=== PATIENT | female | born 1945 | race Caucasian/White ===

== ENCOUNTER 2024-10-15 19:53 | Inpatient (IN) | payer MEDICARE, OTHER, SELFPAY ==
[2024-10-15 19:53] VITALS: BP 184/82; PULSE 100; RESP 27; O2SAT 96
[2024-10-15 19:55] VITALS: BP 197/81; PULSE 108; RESP 18; TEMP 36.6; O2SAT 100; BMI 34.2
--- NOTE | 2024-10-15 20:16 | CT_ITS ---
STUDY: CT BRAIN WITHOUT CONTRAST REASON FOR EXAM: Female, 79 years old. Neuro deficit, stroke suspected RADIATION DOSAGE (If Supplied By Facility): CTDIvol = ( ) mGy, DLP = ( 880.47 ) mGycm TECHNIQUE: Transaxial CT imaging of the brain was performed without administration of intravenous contrast material. Individualized dose optimization techniques were used for this CT. The protocol utilizes one or more of the following dose reduction techniques: automated exposure control, adjustment of mA and/or kV according to patient size,and/or use of iterative reconstruction technique. COMPARISON: No relevant priors. FINDINGS: Normal soft tissue structures. Normal calvarium. Intracranial atherosclerosis. Normal size ventricles and extra-axial spaces for the patient''s age. Normal white matter tracts of the cerebral hemispheres. Normal basal ganglia and thalami. Normal brainstem. Normal cerebellum. There is no intracranial hemorrhage. There are no findings of an acute ischemic infarction. Normal visualized paranasal sinuses. CT/Brain/Head without Contrast IMPRESSION: No acute disease Electronically Signed: Yovany Sheridan MD at 21:29 EST ,
--- NOTE | 2024-10-15 20:16 | EKG12_ITS ---
Test Reason : DYSRHYTHMIA Blood Pressure : */* mmHG Vent. Rate : 108 BPM Atrial Rate : 108 BPM P-R Int : 178 ms QRS Dur : 78 ms QT Int : 342 ms P-R-T Axes : 63 38 67 degrees QTcB Int : 458 ms Sinus tachycardia Possible Left atrial enlargement Borderline ECG Confirmed by ALISON CHAVIS, BONNIE ([id number]), acquisitions editor SVEN GUTIÉRREZ ([id number]) on 10/17/2024 2:18:22 PM Referred By: DANNIELLE Confirmed By: BONNIE ROSAS MD
--- NOTE | 2024-10-15 20:18 | EDS_ITS ---
HPI History of Present Illness Chief Complaint: Neuro S/Sx Narrative Narrative: Chief complaint and HPI: Left sided facial droop and weakness. 79-year-old female with no significant past medical history but has not seen a primary care physician in years presents for evaluation of left-sided facial droop, left upper extremity weakness, and brain fog. Patient states approximately 1 week ago she had an episode of brain fog in which she felt confused. She states that this resolved. Yesterday, shortly after waking up, patient noticed that she was dropping things in her left hand. 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 Her family member came to visit her at 10 AM and noticed that her left face was drooping as well as she was talking different. Daughter saw the patient today and noticed left facial drooping and difficulty speaking which is why they present today. Patient denies any fever, chills, shortness of breath, chest pain abdominal pain, nausea, vomiting. Denies any aphasia. Review of systems: See HPI Medications: As listed on the chart Allergies: As listed on the chart PFSH: Per chart Vital signs: As listed on the chart. Reviewed. 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, patient has mild drift of the left upper extremity but does not hit the bed, no ataxia with [id number] testing or [id number] testing although patient states she has to concentrate more with the [id number] testing on the left Skin: Warm, dry, intact Neuro: Alert, oriented, endorses some mild decrease sensation of the left face compared to the right intact, no aphasia, dysarthria, NIH 5 Psych: Cooperative, appropriate mood and affect PFS PFSH Medical History no medical history Home Medications ?Medication ?Instructions ?Recorded ?Last Taken ?Type NK 10/15/24 Unknown History Allergy/AdvReac Type Severity Reaction Status Date / Time No Known Allergies Allergy Verified 10/15/24 19:54 Social History Smoking Status: Never smoker EXAM Physical Exam Const Vital Signs: 10/15/24 19:53 10/15/24 19:55 10/15/24 20:53 Temperature 97.9 F Temperature Source Temporal Pulse Rate 100 108 H 98 Respiratory Rate 27 H 18 23 H Blood Pressure 184/82 H 197/81 H 144/58 H Blood Pressure Mean 116 119 86 Pulse Ox 96 100 95 Oxygen Delivery Method Room Air Room Air Room Air MDM MDM MDM Narrative Medical decision making narrative: 79-year-old female with no significant past medical history but has not seen a primary care physician in years presents for evaluation of left-sided facial droop, left upper extremity weakness, and brain fog. Last known normal was over 24 hours ago. NIH is 5. Patient is outside the stroke or LVO window. Concern is for CVA. Laboratory workup ordered including CT head. EKG and chest x-ray reviewed see below. CBC without leukocytosis. Patient has some hemoconcentration of 15.3. BMP shows mild hypokalemia of 3. Renal insufficiency with a creatinine of 1.16. I do not have previous labs to compare to so unknown if this is her baseline. Hyperglycemia of 208. Troponin u nremarkable. CT head without any acute stroke or intracranial abnormality. Based on patient's physical exam patient will warrant admission for further CVA workup including MRI brain. Patient family updated on results and confirmed understanding of plan. Patient discussed with the hospitalist who accepted admission for observation. EKG: Interpreted by me/EM physician: EKG shows sinus tachycardia with a heart rate of 108. No acute ischemic changes. Diagnostic: Interpreted by me/EM physician: Chest x-ray without pneumonia, effusion, cardiomegaly, pneumothorax Impression: 1. Left-sided facial droop, left upper extremity weakness, dysarthria-concern for CVA 2. Renal insufficiency 3. Hyperglycemia 4. Hypokalemia Lab Data Labs: Laboratory Results - last 24 hr 10/15/24 20:08 WBC 10.0 RBC 5.09 Hgb 15.3 H Hct 46.6 MCV 91.6 MCH 30.1 MCHC 32.8 RDW Std Deviation 43.6 RDW Coeff of Tam 12.8 Plt Count 183 MPV 10.5 Immature Gran % (Auto) 0.300 Neut % (Auto) 61.1 Lymph % (Auto) 27.0 [place] % (Auto) 9.6 Eos % (Auto) 1.8 Baso % (Auto) 0.2 Absolute Neuts (auto) 6.1 Absolute Lymphs (auto) 2.69 Nucleated RBC % 0 PT 13.0 INR 1.0 APTT 24.0 L Sodium 142 Potassium 3.0 L Chloride 110 H Carbon Dioxide 28.0 Anion Gap 4 L BUN 19 H Creatinine 1.16 H Estim Creat Clear Calc 37.39 Est GFR (MDRD) Af Amer 58 L Est GFR (MDRD) Non-Af 48 L BUN/Creatinine Ratio 16.4 Glucose 208 H Calcium 9.2 Troponin I High Sens 15 Radiography Diagnostic Testing: Clinical Impression(s) from Imaging Studies Brain CT 10/15/24 20:16 IMPRESSION: No acute disease Electronically Signed: Yovany Sheridan MD at 21:29 EST Reading Location ID and State: [address] [place] [address] Tel , Service support , Chest X-Ray 10/15/24 20:30 IMPRESSION: No acute disease Electronically Signed: Yovany Sheridan MD at 21:30 EST Reading Location ID and State: [address] [place] [address] Tel , Service support , Discharge Plan Triage Chief Complaint: Neuro S/Sx ED Provider: Ervin Elaine Dx/Rx/DC Orders Prescriptions: No Action NK Primary Care Provider: Care Physician,No Primary Referrals: NOT,DEFINED [Non-Staff] - Print Language: Malawian
--- NOTE | 2024-10-15 20:19 | ED.RN ---
NO OLD EKG
[2024-10-15 20:28] LABS: Absolute Lymphocyte Count 2.69 X10^3/uL (0.83-4.51); Absolute Neutrophil Count 6.1 X10^3/uL (2.0-7.7); Basophil# 0.02 X10^3/uL; Basophil% 0.2 % (0-1); Eosinophil# 0.18 X10^3/uL; Eosinophils% 1.8 % (0-5); Hematocrit 46.6 % (37-47); Hemoglobin 15.3 g/dL (12.0-15.0); Lymphocyte # 2.69 X10^3/ul (0.83-4.51); Mean Corp Hgb Conc 32.8 g/dL (32-36); Mean Corpuscular Hgb 30.1 pg (27.0-32.0); Mean Corpuscular Volume 91.6 fL (81-99); Mean Platelet Vol. 10.5 fl (6.2-12.0); Monocyte# 0.96 X10^3/uL; Monocyte% 9.6 % (0-10); NRBC Flagged by Analyzer 0 % (0-5); Neutrophil % 61.1 % (47-70); Platelet Count 183 K/mm3 (150-450); RBC Distribution Width CV 12.8 % (11.6-14.6); RBC Distribution Width SD 43.6 fl (35.1-43.9); Red Blood Count 5.09 M/mm3 (4.2-5.4)
--- NOTE | 2024-10-15 20:30 | RAD_ITS ---
STUDY: X-RAY CHEST REASON FOR EXAM: Female, 79 years old. Neuro deficit, acute, stroke suspected TECHNIQUE: Single frontal view of the chest. COMPARISON: None. FINDINGS: Subsegmental atelectasis left base. The lungs are clear and expanded. There is no demonstrated pleural abnormality. Normal size heart. Normal mediastinum and aditya. Normal visualized pulmonary arteries. Normal visualized aortic arch and descending thoracic aorta. Normal visualized thoracic spine. Normal visualized ribs, clavicles, and shoulders. There is no demonstrated abnormality of the visualized soft tissue structures of the upper abdomen. RAD/Chest 1 View IMPRESSION: No acute disease Electronically Signed: Yovany Sheridan MD at 21:30 EST ,
[2024-10-15 20:36] VITALS: BMI 34.4
[2024-10-15 20:47] LABS: Anion Gap 4 (5-15); BUN 19 mg/dL (7-18); BUN/Creat Ratio 16.4 RATIO (10-20); Calcium,Total 9.2 mg/dL (8.5-10.1); Chloride 110 mmol/L (98-107); Creatinine, Serum 1.16 mg/dL (0.55-1.02); EST Glomerular Filtration Rate 48 mL/min (>60); Est Glom Filt Rate - Afr Amer 58 mL/min (>60); Estimated Creatinine Clearance 37.39 ml/min; Glucose 208 mg/dL (74-106); Sodium Level 142 mmol/L (136-145); Troponin-I HS 15 pg/mL (3.0-54.0)
[2024-10-15 20:53] VITALS: BP 144/58; PULSE 98; RESP 23; O2SAT 95
--- NOTE | 2024-10-15 21:44 | PCM.HP.STD ---
HPI - General General Date of Admission: 10/15/24 Date of Service: 10/15/24 Chief Complaint: Left Facial Droop, Left Upper Extremity Weakness, Dysarthric Speech and Brain Fog. HPI Narrative DEREK ALEJANDRE, is a 79 F with a past medical history of obesity; with a BMI of 34.4 this admission and history of deliberately avoiding medical attention for several years who presents to [facility] ER complaining of Left facial droop with Left upper extremity weakness, dysarthric speech and brain fog. Ms. Alejandre reports her symptoms began approximately 1 week ago when she had an episode of brain fog in which she felt confused with symptoms that lasted almost the entire day but then apparently resolved spontaneously so she did not seek medical attention at that time. Then yesterday, shortly after waking up, she noted she was dropping things in her Left hand along with having difficulty coordinating tasks like bringing a chair maker to her head on the Left side. Her family member came to visit her at approximately 10 AM yesterday and allegedly noticed of Left facial droop and abnormal speech but they did not seek medical attention at that time either. Then her daughter saw the patient today and noted her Left facial droop and difficulty speaking and she brought her mother into the ER for further evaluation and treatment. She denies associated fever, chills, nausea, vomiting, abdominal pain, shortness of breath, chest pain, headache, aphasia, difficulty swallowing, alcohol abuse or similar previous episodes. She also denies being on any pharmaceutical medications at this time. In the ER she was noted to have a CT scan of the head that was negative for acute pathologic changes with clinical concern for TIA versus CVA causing Left facial droop, Left upper extremity weakness, dysarthric speech and brain fog complicated by laboratory evidence of hyperglycemia of 208 mg/dL present on admission suggestive of underlying DM-2 along with Hypokalemia of 3 mmol/L present on admission and she was then admitted to the PCU under observation status for ongoing care for a stay that is expected to be less than 2 midnights. PFSH Medical History no medical history Home Medications ?Medication ?Instructions ?Recorded ?Last Taken ?Type NK 10/15/24 Unknown History Allergy/AdvReac Type Severity Reaction Status Date / Time No Known Allergies Allergy Verified 10/15/24 19:54 Surgical History no surgical history Social History Smoking Status: Never smoker ROS ROS Narrative Review of Systems: Constitutional: Patient denies fever or chills. Eyes: Patient denies changes in vision or discharge from eyes. ENT: Patient denies runny nose, sore throat or ear pain. Resp: Patient denies shortness of breath or cough. CV: Patient denies chest pain, palpitations or heart racing. GI: Patient denies abdominal pain, nausea, vomiting, diarrhea or constipation. : Patient denies dysuria or hematuria. MSK: Patient denies arthralgias or myalgias. Skin: Patient denies rash, abscess or jaundice. Psych: Patient denies symptoms of uncontrolled depression or anxiety. Neuro: Patient admits to Left facial droop, Left upper extremity weakness and dysarthric speech with brain fog as per HPI. Allergy: Patient denies lip swelling, tongue swelling or urticaria. Hematology: Patient denies easy bleeding or easy bruisability. Endocrinology: Patient denies polyuria, polydipsia or polyphagia. 14 point review of systems otherwise negative except for positives noted above in HPI. Vital Signs Vital Signs Vital Signs: 10/15/24 19:53 10/15/24 19:55 10/15/24 20:53 Temperature 97.9 F Temperature Source Temporal Pulse Rate 100 108 H 98 Respiratory Rate 27 H 18 23 H Blood Pressure 184/82 H 197/81 H 144/58 H Blood Pressure Mean 116 119 86 Pulse Ox 96 100 95 Oxygen Delivery Method Room Air Room Air Room Air Weight Weight: 176 lb 2.389 oz Body Mass Index (BMI) 34.4 Physical Exam Const alert, oriented x3 and no apparent distress Constitutional Narrative: Obese. General Appearance: cooperative HEENT normocephalic, head/scalp atraumatic, hearing grossly normal bilaterally and moist oral mucous membranes Eyes PERRL and EOMs intact bilaterally Neck no lymphadenopathy and supple Resp normal respiratory effort, no retractions, no use of accessory muscles and clear to auscultation bilaterally Cardio regular rate and regular rhythm GI normal to inspection, nondistended, normoactive bowel sounds, soft to palpation, non-tender and non-distended GI Narrative: Obese. Extremity normal to inspection, full ROM and no clubbing, cyanosis or edema Skin Skin Narrative: Patient has no evidence of rash, abscess or jaundice. 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 She also admits to decreased sensation over the Left face. Sensorium / Orientation: awake, alert, oriented to person, oriented to place and oriented to time Speech: speech normal Psych affect normal Results Medical Records Data Attestation: I reviewed the patient's medical records Lab / Micro Data Attestation: I reviewed the patient's lab results. 10/15/24 20:08 10/15/24 20:08 Labs: Laboratory Results - last 24 hr 10/15/24 20:08: WBC 10.0, RBC 5.09, Hgb 15.3 H, Hct 46.6, MCV 91.6, MCH 30.1, MCHC 32.8, RDW Std Deviation 43.6, RDW Coeff of Tam 12.8, Plt Count 183, MPV 10.5, Immature Gran % (Auto) 0.300, Neut % (Auto) 61.1, Lymph % (Auto) 27.0, [place] % (Auto) 9.6, Eos % (Auto) 1.8, Baso % (Auto) 0.2, Absolute Neuts (auto) 6.1, Absolute Lymphs (auto) 2.69, Nucleated RBC % 0, PT 13.0, INR 1.0, APTT 24.0 L, Sodium 142, Potassium 3.0 L, Chloride 110 H, Carbon Dioxide 28.0, Anion Gap 4 L, BUN 19 H, Creatinine 1.16 H, Estim Creat Clear Calc 37.39, Est GFR (MDRD) Af Amer 58 L, Est GFR (MDRD) Non-Af 48 L, BUN/Creatinine Ratio 16.4, Glucose 208 H, Calcium 9.2, Troponin I High Sens 15 Imaging Radiology Impression Brain CT 10/15/24 20:16 IMPRESSION: No acute disease Electronically Signed: Yovany Sheridan MD at 21:29 EST , Chest X-Ray 10/15/24 20:30 IMPRESSION: No acute disease Electronically Signed: Yovany Sheridan MD at 21:30 EST , Assessment & Plan Assessment/Plan (1) Left-sided weakness: (2) Facial droop: (3) Brain fog: (4) Hyperglycemia: (5) Hypokalemia: (6) Obesity (BMI 30.0-34.9): PLAN: Plan 1. Left facial droop, Left upper extremity weakness and dysarthric speech with brain fog concerning for TIA versus CVA with CT scan of brain in ER negative for acute pathologic changes - Admit to PCU under observation status. Check MRI of the brain to objectively evaluate for evidence of CVA. Check carotid Doppler to evaluate for possible stenosis. Check echocardiogram to evaluate LVEF. Place patient on cafeteria monitor overnight to screen for possible arrhythmias that may be contributing to emboli that may explain her symptomatology. Finally, we will check Lipid Profile, B12 and folate to evaluate for other potential contributing factors to her recent neurologic dysfunction. 2. Hyperglycemia of 208 mg/dL present on admission consistent with suspected DM-2 likely contributing to #1 - Check hemoglobin A1c to confirm suspicion of underlying diabetes. If patient passes swallowing evaluation she was to be started on ADA diet. Finally, we will consult clinical dietitian for diabetic teaching with help appreciated in advance. 3. Hypokalemia of 3 mmol/L present on admission complicating #1 & #2 in the setting of suspected CKD; stage IIIa with EGFR of 48 mL/min this admission - Give supplemental KCl and recheck level in a.m. to ensure improvement. 4. Obesity; with a BMI of 34.4 this admission compounding #1 - #3 - Weight loss will be recommended. Check TSH. This complicates her case and may hamper recovery. 5. DVT prophylaxis - Lovenox 30 mg sq daily plus SCD's. Total time: Approximately (but not less than) 70 minutes. Charges/Coding Visit Charges OBSV E&M: 30238 Observ/hosp same date L2
--- NOTE | 2024-10-15 21:54 | CDU_ITS ---
Reason For Study: Left-sided weakness, facial droop,and brain fog Rt. Velocities/BP Lt. Velocities/BP Prox CCA 92.4/12.1 cm/sec. Prox CCA 110.7/13.9 cm/sec. Mid CCA 69.5/8.1 cm/sec. Mid CCA 134.4/15.7 cm/sec. Dist CCA 84.2/9.3 cm/sec. Dist CCA 73.1/11.1 cm/sec. Prox ICA 42.1/7.2 cm/sec. Prox ICA 72.3/15.7 cm/sec. Mid ICA 51.1/14.3 cm/sec. Mid ICA 73.2/22.6 cm/sec. Dist ICA 68.6/16.6 cm/sec. Dist ICA 61.1/18.2 cm/sec. Rt. ICA/CCA = 1.0. Lt. ICA/CCA = 0.5. Prox ECA 115.5/10.1 cm/sec. Prox ECA 94.1/6.9 cm/sec. Rt. Vert. 45.0/5.3 cm/sec. Lt. Vert. 69.5/19.2 cm/sec. Right Extracranial There is intimal thickening but no significant atherosclerotic plaque noted in the right common carotid artery. There is intimal thickening but no significant atherosclerotic plaque noted in the right internal carotid artery. There is intimal thickening but no significant atherosclerotic plaque noted in the right external carotid artery. Antegrade flow is noted in the right vertebral artery. Left Extracranial There is intimal thickening but no significant atherosclerotic plaque noted in the left common carotid artery. There is intimal thickening but no significant atherosclerotic plaque noted in the left internal carotid artery. There is intimal thickening but no significant atherosclerotic plaque noted in the left external carotid artery. Antegrade flow is noted in the left vertebral artery. Procedure Carotid Duplex 48412. This is a Carotid Duplex examination using B-mode, color flow and specral Doppler. Exam performed portable in patient room. VL/Carotid Duplex Ultrasound Interpretation Summary Normal right extracranial internal carotid. Normal left extracranial internal carotid. Patent and antegrade vertebrals bilaterally. Ordering Physician: Curly Sadler Performed By: Nathalia Cruz RVT and Student
--- NOTE | 2024-10-15 21:54 | ECHOD_ITS ---
Reason For Study: TIA/CVA Procedure This was a 2D Doppler, Color Flow transthoracic echocardiogram. Exam performed portable in patient room. Left Ventricle Normal LV size. Left ventricular systolic function is normal. The estimated ejection fraction is 70 %. No regional wall motion abnormalities noted. Right Ventricle Normal RV size. Normal systolic function. Atria Normal left atrium. Normal right atrium. Bubble contrast study is negative for PFO/ASD. Mitral Valve There is moderate mitral annular calcification. Mild focal mitral valve calcification of the anterior leaflet. Mild (1+) eccentric mitral valve insufficiency. Tricuspid Valve Normal tricuspid valve. Aortic Valve Trisinus/trileaflet aortic valve. Pulmonic Valve Normal pulmonic valve. Great Vessels Normal aortic root. The pulmonary artery is normal size. Inferior vena cava collapse with respiration. Pericardium/Pleural No pericardial effusion. Medication Performed a rapid injection of agitated mix of 9 cc saline and 1cc air to assess for atrial septal defect. MMode/2D Measurements & Calculations LVIDd: 4.2 cm IVSd: 1.0 cm Ao root diam: 3.1 cm LVIDs: 2.5 cm LVPWd: 1.4 cm FS: 39.3 % LAV(MOD-bp): 34.4 ml LVAd ap4: 24.2 cm2 SV(MOD-sp4): 49.5 ml LAV(MOD-bp) Indexed: 19.5 ml/m2 LVLd ap4: 6.9 cm SI(MOD-sp4): 28.1 ml/m2 LAV(MOD-sp2): 30.5 ml EDV(MOD-sp4): 70.8 ml LAV(MOD-sp4): 33.3 ml EDV(sp4-el): 72.6 ml LVAs ap4: 12.0 cm2 LVLs ap4: 6.0 cm ESV(MOD-sp4): 21.3 ml ESV(sp4-el): 20.5 ml EF(MOD-sp4): 69.9 % EF(sp4-el): 71.8 % SV(sp4-el): 52.1 ml LA A4 area: 14.0 cm2 RA A4 area: 7.6 cm2 Time Measurements MV dec time: 0.29 sec Doppler Measurements & Calculations MV E max rey: 87.6 cm/sec Lat Peak E' Rey: 5.0 cm/sec Med Peak E' Rey: 4.0 cm/sec MV A max rey: 157.7 cm/sec E/E' lat: 17.7 E/E' med: 22.1 MV E/A: 0.56 MV V2 max: 144.4 cm/sec Ao V2 max: 103.8 cm/sec MV max P.3 mmHg MV dec slope: 307.2 cm/sec2 Ao max P.3 mmHg MV V2 mean: 74.7 cm/sec Ao V2 mean: 73.2 cm/sec MV mean P.8 mmHg Ao mean P.4 mmHg MV V2 VTI: 33.5 cm Ao V2 VTI: 22.3 cm AV (velocity ratio): 1.1 LV V1 max: 110.8 cm/sec PA V2 max: 112.3 cm/sec LV V1 max P.9 mmHg PA V2 mean: 72.3 cm/sec LV V1 mean P.6 mmHg LV V1 mean: 74.6 cm/sec LV V1 VTI: 25.4 cm ECHO/Echo Complete Interpretation Summary Normal LV size. Left ventricular systolic function is normal. The estimated ejection fraction is 70 %. Bubble contrast study is negative for PFO/ASD. Ordering Physician: Ivis Perez Performed By: Saniya Rodriguez RCS
[2024-10-15 22:00] VITALS: BP 111/62; PULSE 88; RESP 32; O2SAT 95
[2024-10-15 22:05] VITALS: BP 111/62; PULSE 87; RESP 23; TEMP 36.6; O2SAT 96
[2024-10-15 22:26] LABS: Hemoglobin A1c 5.5 % (3.8-5.6)
[2024-10-15 22:48] LABS: Alcohol, Blood (Medical)-Serum < 3.0 mg/dL
[2024-10-15 23:05] VITALS: O2SAT 98
[2024-10-15 23:09] VITALS: BMI 34.2
[2024-10-15 23:18] LABS: Vitamin B12 263 pg/mL (211-911)
[2024-10-15] MEDS: Potassium Chloride Oral Tablet 20 MEQ 60 MEQ PO (23:52)
[2024-10-15] MEDS: 0.9% Normal Saline (1000mL) 1,000 ML 50 ML IV (23:52)
[2024-10-15] MEDS: Atorvastatin Calcium 20 MG Tablet PO (23:52)
[2024-10-15] MEDS: Aspirin 325 MG Tablet PO (23:52)
[2024-10-16] VITALS (13 sets, daily range): BP systolic 155–203; BP diastolic 67–86; PULSE 70–83; RESP 16–18; TEMP 36.4–36.7; O2SAT 94–98; BMI 34.2
[2024-10-16 07:09] LABS: Cholesterol 212 mg/dL (200); High Density Lipoprotein 72 mg/dL; Triglycerides 51 mg/dL; Very Low Density Lipoprotein 10 mg/dL (5-40)
--- NOTE | 2024-10-16 07:47 | PCM.PN.HOSP ---
Reason for Visit Reason for Visit: Diagnoses Obesity, class 1 (10/15/24) Hypokalemia (10/15/24) Facial weakness (10/15/24) Other symptoms and signs involving cognitive functions and awareness (10/15/24) Weakness (10/15/24) Hyperglycemia, unspecified (10/15/24) Subjective Subjective Patient with no acute events overnight per self and per nursing report. Patient notes resolution of neurological symptoms aside continue left-sided facial droop which she has denied having any previously although she does have some ability to correct with smiling. Discussed plan of care which included also MRI and echocardiogram likely to be performed 10/17/2024. Patient denies fevers, chills, nausea, emesis, abdominal pain, chest pain or dyspnea. Objective Data Objective Data Vital Signs: Vital Signs Temp Pulse Resp BP Pulse Ox O2 Del Method 97.5 F L 73 16 198/81 H 94 Room Air 10/16/24 07:15 10/16/24 07:15 10/16/24 07:15 10/16/24 07:15 10/16/24 07:15 10/16/24 07:27 Oxygen Delivery Method Room Air Weight: 175 lb Body Mass Index (BMI) 34.2 Intake & Output: Intake and Output for Last 24 Hours 10/14/24 10/15/24 10/16/24 23:59 23:59 23:59 Intake Total 200 / 200 Balance 200 / 200 Lab / Micro Data 10/15/24 20:08 10/15/24 20:08 Labs: Laboratory Results - last 24 hr 10/15/24 20:08: WBC 10.0, RBC 5.09, Hgb 15.3 H, Hct 46.6, MCV 91.6, MCH 30.1, MCHC 32.8, RDW Std Deviation 43.6, RDW Coeff of Tam 12.8, Plt Count 183, MPV 10.5, Immature Gran % (Auto) 0.300, Neut % (Auto) 61.1, Lymph % (Auto) 27.0, [place] % (Auto) 9.6, Eos % (Auto) 1.8, Baso % (Auto) 0.2, Absolute Neuts (auto) 6.1, Absolute Lymphs (auto) 2.69, Nucleated RBC % 0, PT 13.0, INR 1.0, APTT 24.0 L, Sodium 142, Potassium 3.0 L, Chloride 110 H, Carbon Dioxide 28.0, Anion Gap 4 L, BUN 19 H, Creatinine 1.16 H, Estim Creat Clear Calc 37.39, Est GFR (MDRD) Af Amer 58 L, Est GFR (MDRD) Non-Af 48 L, BUN/Creatinine Ratio 16.4, Glucose 208 H, Hemoglobin A1c 5.5, Calcium 9.2, Troponin I High Sens 15, Vitamin B12 263, Folate 15.30, TSH 1.360 10/15/24 22:21: Ethyl Alcohol < 3.0 10/16/24 06:20: Triglycerides 51, Cholesterol 212 H, LDL Cholesterol 130, VLDL Cholesterol 10, HDL Cholesterol 72 Radiography Diagnostic Testing: Radiology Impression Brain CT 10/15/24 20:16 IMPRESSION: No acute disease Electronically Signed: Yovany Sheridan MD at 21:29 EST Reading Location ID and State: [address] [place] [address] Tel , Service support , Chest X-Ray 10/15/24 20:30 IMPRESSION: No acute disease Electronically Signed: Yovany Sheridan MD at 21:30 EST Reading Location ID and State: [address] [place] [address] Tel , Service support , Physical Exam Narrative Physical Examination: General: Awake, alert, oriented x 3 and cooperative, seated upright in PCU bed in no apparent distress, notes some improvement in neurological symptoms. Skin: Normal color, normal turgor, no icterus, no cyanosis. HEENT: AT/NC, EOMI, PERRLA, MMM, poor dentition, still persistent left-sided facial droop although some correction with smiling. Lungs: Mildly diminished, mildly decreased BL bases, no rales, ronchi or wheezing. Heart: Regular rate and rhythm; no gallop, rub audible. Abdomen: Soft, obese, NTTP, ND, normal BS. Extremities: No cyanosis, no clubbing, mild ankle trace pitting edema. Neurological: Patient awake, alert, oriented as noted, cognitive function intact; pupils equally reactive to light and accommodation, cranial nerves grossly normal aside from persistent left-sided facial droop with some correction with smiling, moving all 4 extremities, no focal deficits, strength preserved, finger-nose and rasu-[id number]-ciff appropriate, equivocal Babinski. Psychiatric: Affect appears normal, no acute evidence of depressive or anxiety feelings. Assessment & Plan Assessment/Plan (1) Facial droop: PLAN: Plan The patient is a 79 y/o F w/ PMHx: Obesity avoiding medical care and evaluation for many years with likely underlying co-morbidities that have gone undiagnosed who presents to the [facility] ED on 10/15/24 with onset of left-sided facial droop, left upper extremity weakness as well as dysarthric speech and confusion with symptoms beginning approximately 1 week prior to current presentation describing as brain fog prompt eventual ED evaluation. #1. Left-sided facial droop, left upper extremity weakness, dysarthric speech, confusion concerning for Acute CVA: Chest x-ray with no acute cardiopulmonary findings, CT of the brain with no acute intracranial findings. Will admit to PCU, obtained 10/16/24 CTA head and neck with noted segmental high-grade stenosis along the left anterior pericallosal artery due to small vessel plaques and small vessel plaques without significant stenosis along the right anterior pericallosal artery and both posterior cerebral arteries, no large vessel occlusion or medial vessel occlusion of the anterior or posterior intracranial circulation, normal bilateral cervical carotid arteries and vertebral arteries, normal aortic arch and origins of the great vessels, 3.3 x 2.9 x 4.3 cm left nodule noted to be mixed solid and cystic mass continue judicious hydration given unclear exact kidney function although suspect likely chronic component, will obtain MRI Brain, ECHO, PT/OT/Speech/Nutrition evaluation per protocol. Will allow permissive HTN, maintain on asa, added statin w/ AM FLP obtained, fall precautions. Mag 2.0, TSH 1.360, FLP obtained w/ TChol 212/LDL 130/VLDL 10/HDL72, HgbA1c 5.5%. Maintain on fall and aspiration precautions. #2. Incidentally noted thyroid nodule, mixed solid and cystic mass: 10/16/24 CTA head and neck obtained with noted incidental 3.3 x 2.9 x 4.3 cm thyroid nodule noted to be mixed solid and cystic mass, TSH normal range, will need follow-up thyroid ultrasound outpatient. #3. Hypokalemia: Admission K+ 3.0, supplementation given, magnesium level requested, will repeat labs in AM. #4. Hyperglycemia, possibly stress response: Admission glucose 208, HgbA1c 5.5%, possibly elevated secondary to stress response. #5. Elevated BP without hypertensive diagnosis: BP significantly above goal, currently on permissive hypertension, as needed agents per stroke protocol with likely oral transition following #6. Suspected Chronic Kidney Disease Stage III per GFR trending: Admission BUN/Cr 19/1.16, GFR 48, baseline renal function unknown, repeat BMP in AM. #7. Obesity: Weight loss and lifestyle changes encouraged. #8. DVT prophylaxis: Lovenox. Charges/Coding Visit Charges Inpatient E&M: 54664 Subs Hosp L3
--- NOTE | 2024-10-16 07:54 | CT_ITS ---
STUDY: CTA HEAD AND NECK WITH CONTRAST REASON FOR EXAM: Female, 79 years old. TIA/CVA evaluation. Left facial droop with left arm weakness RADIATION DOSAGE (If Supplied By Facility): CTDIvol = ( 26.48 ) mGy, DLP = ( 1567.24 ) mGycm TECHNIQUE: CT angiography was performed with a multi-detector CT scanner. Data acquisition was obtained from the skull base through the vertex following intravenous administration of 100mL Isovue-370. MIP images were reconstructed from the axial data set. Post-processing of the angiographic images was performed, with multiplanar reformation and 3D reconstruction. Individualized dose optimization techniques were used for this CT. The protocol utilizes one or more of the following dose reduction techniques: automated exposure control, adjustment of mA and/or kV according to patient size, and/or use of iterative reconstruction technique. COMPARISON: No relevant priors. FINDINGS: Normal bilateral petrous carotid arteries. Normal right cavernous carotid artery with a normal supraclinoid bifurcation. Normal left cavernous carotid artery with a normal supraclinoid bifurcation. Normal right A1 segment of the anterior cerebral artery. Normal left A1 segment of the anterior cerebral artery. Normal intact anterior communicating artery (ACOM). Segmental high-grade stenosis in the left anterior pericallosal arteries due to small vessel plaques. Small vessel plaques along the right anterior pericallosal artery without significant stenosis. Normal right M1 and M2 segments of the middle cerebral arteries, with a normal M1 bifurcation. Normal left M1 and M2 segments of the middle cerebral arteries, with a normal M1 bifurcation. No visible right posterior communicating artery (PCOM). No visible left posterior communicating artery (PCOM). There is calcified plaque in the intradural segment of the hypoplastic right vertebral artery causing 50% stenosis. Normal and widely patent dominant left vertebral artery. Normal basilar artery with a normal basilar bifurcation. The visualized bilateral superior cerebellar (SCA) arteries are normal. Normal bilateral P1 segments. Small vessel plaques without significant stenosis along the bilateral P2 and visualized P3 segments of the posterior cerebral arteries. There is no demonstrated aneurysm of the [place]. There is no demonstrated abnormality of the visualized brain. AORTIC ARCH: Normal visualized aortic arch. Normal origins of the brachiocephalic, left common carotid, and left subclavian arteries. RIGHT CAROTID ARTERIES: Normal right common carotid artery (CCA). Normal right carotid bulb. Normal origin of the right internal carotid (ICA) artery without a hemodynamically significant stenosis. Normal visualized cervical portion of the right internal carotid artery. Normal origin of the right external carotid artery (ECA). LEFT CAROTID ARTERIES: Normal left common carotid artery (CCA). Normal left carotid bulb. Normal origin of the left internal carotid (ICA) artery without a hemodynamically significant stenosis. Normal visualized cervical portion of the left internal carotid artery. Normal origin of the left external carotid artery (ECA). VERTEBRAL ARTERIES: Normal bilateral vertebral arteries. CT/CTA Head AND Neck W/ Contrast IMPRESSION: 1. 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 2. No large vessel occlusion or medial vessel occlusion of the anterior end posterior intracranial circulation. 3. Normal bilateral cervical carotid arteries and vertebral arteries. 4. Normal aortic arch and origins of the great vessels. 5. 3.3 x 2.9 x 4.3 cm left thyroid nodule is mixed solid and cystic mass. Recommend further evaluation with thyroid ultrasound. Electronically Signed: Elgin Alberto MD at 10:07 [facility] ,
[2024-10-16] MEDS: Enoxaparin 30 MG/0.3 ML Syringe SC (10:27)
[2024-10-16] MEDS: Aspirin 81 MG TAB.CHEW PO (10:27)
[2024-10-16] MEDS: FLU VACCINE **HIGH DOSE** TV 24-25 180 MCG/0.5 ML SYRINGE IM (10:29)
--- NOTE | 2024-10-16 10:32 | CON.PCM.NE_ITS ---
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 - LDL 13, A1C 5.0 - rec atorvastatin 40mg - pending TTE - SBP goal 140-180 for now, do not over-control BP as could extend and worsen the stroke - Occupational/ Physical therapy consults - NPO until swallow evaluation. IVF until able to take po - DVT prophylaxis with SCDs and heparin SQ - Vascular risk factor modification. The following are the recommended guidelines: LDL Goal < 70 Smoking Cessation Diabetes Management USP blood pressure control should achieve <130/80 mmHg. BP management should aim to achieve beef splitter contorl in a reasonable amount of time, taking into consideration the individual patient's requirements and characteristics. Weight Management: Goal for BMI is 18.5 -24.9 kg/m2 Alcohol: No more than 2 drinks/day for men or 1 drink/day for non- women - Promote lifestyle modification: weight control, physical activity, moderation of alcohol intake, moderate sodium intake. Followup with PCP in 1-2 weeks, and in Neurology clinic in 6-12 weeks HPI Consult Data Date of Consult: 10/17/24 HPI Narrative HPI Narrative: DEREK ALEJANDRE, is a 79 F with a past medical history of obesity; with a BMI of 34.4 this admission and history of deliberately avoiding medical attention for several years who presents to [facility] ER complaining of Left facial droop with Left upper extremity weakness, dysarthric speech and brain fog. Ms. Alejandre reports her symptoms began approximately 1 week ago when she had an episode of brain fog in which she felt confused with symptoms that lasted almost the entire day but then apparently resolved spontaneously so she did not seek medical attention at that time. Then yesterday, shortly after waking up, she noted she was dropping things in her Left hand along with having difficulty coordinating tasks like bringing a doll wig maker rooted hair to her head on the Left side. Her family member came to visit her at approximately 10 AM yesterday and allegedly noticed of Left facial droop and abnormal speech but they did not seek medical attention at that time either. Then her daughter saw the patient today and noted her Left facial droop and difficulty speaking and she brought her mother into the ER for further evaluation and treatment. She denies associated fever, chills, nausea, vomiting, abdominal pain, shortness of breath, chest pain, headache, aphasia, difficulty swallowing, alcohol abuse or similar previous episodes. She also denies being on any pharmaceutical medications at this time. In the ER she was noted to have a CT scan of the head that was negative for acute pathologic changes with clinical concern for TIA versus CVA causing Left facial droop, Left upper extremity weakness, dysarthric speech and brain fog complicated by laboratory evidence of hyperglycemia of 208 mg/dL present on admission suggestive of underlying DM-2 along with Hypokalemia of 3 mmol/L present on admission and she was then admitted to the PCU under observation status for ongoing care for a stay that is expected to be less than 2 midnights. Neurologic History Per patient, has symptoms are getting worse, her head feels a lot better. Her kids noted the slurred speech and facial droop. Never had a stroke before, no falls at home. No history heart disease, does not take any meds. [facility] Medical History (Updated 10/16/24 @ 10:[address] Ivis Perez MD) Obesity (BMI 30.0-34.9) Medical History no medical history Home Medications ?Medication ?Instructions ?Recorded ?Last Taken ?Type NK 10/15/24 Unknown History Allergy/AdvReac Type Severity Reaction Status Date / Time No Known Allergies Allergy Verified 10/15/24 19:54 Surgical History no surgical history Social History Smoking Status: Never smoker Vital Signs Vital Signs Vital Signs: 10/15/24 19:53 10/15/24 19:55 10/15/24 20:53 Temperature 97.9 F Temperature Source Temporal Pulse Rate 100 108 H 98 Pulse Strength Respiratory Rate 27 H 18 23 H Respiratory Effort Respiratory Depth Respiratory Pattern Blood Pressure 184/82 H 197/81 H 144/58 H Blood Pressure Mean 116 119 86 Blood Pressure Source Blood Pressure Position Blood Pressure Location Pulse Ox 96 100 95 Oxygen Delivery Method Room Air Room Air Room Air 10/15/24 22:00 10/15/24 22:05 10/15/24 23:05 Temperature 97.9 F Temperature Source Pulse Rate 88 87 Pulse Strength Respiratory Rate 32 H 23 H Respiratory Effort Respiratory Depth Respiratory Pattern Blood Pressure 111/62 111/62 Blood Pressure Mean 78 78 Blood Pressure Source Blood Pressure Position Blood Pressure Location Pulse Ox 95 96 98 Oxygen Delivery Method Room Air Room Air 10/16/24 00:31 10/16/24 03:00 10/16/24 07:15 Temperature 98.1 F 97.9 F 97.5 F L Temperature Source Oral Oral Temporal Pulse Rate 83 79 73 Pulse Strength Respiratory Rate 18 16 16 Respiratory Effort Respiratory Depth Respiratory Pattern Blood Pressure 176/84 H 155/67 H 198/81 H Blood Pressure Mean 114 96 120 Blood Pressure Source Monitor Blood Pressure Position Semi-Fowlers Blood Pressure Location Left Arm Pulse Ox 98 97 94 Oxygen Delivery Method Room Air Room Air Room Air 10/16/24 07:27 10/16/24 07:27 10/16/24 07:43 Temperature Temperature Source Pulse Rate Pulse Strength Normal (2+) Respiratory Rate Respiratory Effort Normal Non-Labored Respiratory Depth Normal Respiratory Pattern Normal Blood Pressure Blood Pressure Mean Blood Pressure Source Blood Pressure Position Blood Pressure Location Pulse Ox 97 Oxygen Delivery Method Room Air Room Air Weight Weight: 79.379 kg Body Mass Index (BMI) 34.2 EEG Results Procedure Details EEG Procedure Details: DEREK ALEJANDRE is a 79 year old F with a past medical history of , who presents for evaluation of Electroencephalogram on DATE at TIME NIHSS NIHSS Nursing Documentation NIHSS Nursing Documentation: NIHSS: Ischemic Stroke/TIA Start: 10/15/24 22:54 Text: For PCU Patients: NIH and Neuro Check every 4 Status: Active hours, PRN and with change in RN caregiver. Freq: [id number] Protocol: Activity Type Activity Date Activity User E-sign Co-sign Detail Recorded Client Recorded Date Recorded By Document 10/16/24 07:15 [email or web address] [id number] 10/16/24 07:27 [email or web address] 10/16/24 07:15 NIH Stroke Scale [NIHSS] A score of 0 is normal or asymptomatic . Total possible score is 42. Inpatient: RN or Physician to activate a stroke alert for onset of new stroke symptoms or with NIHSS increase >/= 3 points. Following change in neurological status, NIHSS will be performed per physician order or more frequently PRN. -1a. Level of Consciousness Alert; keenly responsive -1b. LOC Questions Answers BOTH questions correctly. -1c. LOC Commands Performs both tasks correctly . -2. Best Gaze Normal -3. Visual No visual loss -4. Facial Palsy Normal symmetrical movements -5a. Left Arm No drift; arm holds 90 (or 45 ) degrees for full 10 seconds -5b. Right Arm No drift; arm holds 90 (or 45 ) degrees for full 10 seconds -6a. Left Leg No drift; leg holds 30-degree position for full 5 seconds -6b. Right Leg No drift; leg holds 30-degree position for full 5 seconds -7. Limb Ataxia Absent -8. Sensory Normal; no sensory loss -9. Best Language No aphasia; normal -10. Dysarthria Mild-to- moderate dysarthria; -11. Extinction and Inattention No abnormality -Total 1 Query Text:A score of 0 is normal or asymptomatic. Total possible score is 42 . ED: Notify Physician for NIHSS increase by > / = 3 points. Inpatient: RN or Physician to activate a stroke alert for NIHSS increase of > / = 3 points. Coma Scale [Assess] -Eye Opening Spontaneous -Motor Obeys Commands -Verbal Oriented [Total] -Coma Scale Total 15 NIHSS: Ischemic Stroke/TIA Start: 10/15/24 22:54 Text: For ICU Patients: NIH sroke scale at Status: Complete presentation and every 2 hours or with change in RN caregiver Freq: [id number] Protocol: Activity Type Activity Date Activity User E-sign Co-sign Detail Recorded Client Recorded Date Recorded By Document 10/15/24 23:11 [facility] [id number] 10/15/24 23:24 [facility] 10/15/24 23:11 NIH Stroke Scale [NIHSS] A score of 0 is normal or asymptomatic . Total possible score is 42. Inpatient: RN or Physician to activate a stroke alert for onset of new stroke symptoms or with NIHSS increase >/= 3 points. Following change in neurological status, NIHSS will be performed per physician order or more frequently PRN. -1a. Level of Consciousness Alert; keenly responsive -1b. LOC Questions Answers BOTH questions correctly. -1c. LOC Commands Performs both tasks correctly . -2. Best Gaze Normal -3. Visual No visual loss -4. Facial Palsy Partial paralysis ( total or near- total paralysis of lower face) -5a. Left Arm Drift; arm drifts downward but doesn?t hit the bed -5b. Right Arm No drift; arm holds 90 (or 45 ) degrees for full 10 seconds -6a. Left Leg No drift; leg holds 30-degree position for full 5 seconds -6b. Right Leg No drift; leg holds 30-degree position for full 5 seconds -7. Limb Ataxia Present in 1 limb -8. Sensory Mild-to- moderate sensory loss; -9. Best Language No aphasia; normal -10. Dysarthria Mild-to- moderate dysarthria; -11. Extinction and Inattention Visual, tactile , auditory, spatial, or personal inattention -Total 7 Query Text:A score of 0 is normal or asymptomatic. Total possible score is 42 . ED: Notify Physician for NIHSS increase by > / = 3 points. Inpatient: RN or Physician to activate a stroke alert for NIHSS increase of > / = 3 points. NIHSS 1a. Level of Consciousness: Alert; keenly responsive 1b. LOC Questions: Answers BOTH questions correctly. 1c. LOC Commands: Performs both tasks correctly. 2. Best Gaze: Normal 3. Visual: No visual loss 4. Facial Palsy: Partial paralysis (total or near-total paralysis of lower face) 5a. Left Arm: Drift; arm drifts downward but doesn?t hit the bed 5b. Right Arm: No drift; arm holds 90 (or 45) degrees for full 10 seconds 6a. Left Leg: No drift; leg holds 30-degree position for full 5 seconds 6b. Right Leg: No drift; leg holds 30-degree position for full 5 seconds 7. Limb Ataxia: Present in 1 limb 8. Sensory: Normal; no sensory loss 9. Best Language: No aphasia; normal 10. Dysarthria: [id number] dysarthria; 11. Extinction and Inattention: Visual, tactile, auditory, spatial, or personal inattention Total: 6 Lab / Micro Data 10/15/24 20:08 10/15/24 20:08 Labs: Laboratory Results - last 24 hr 10/15/24 20:08: WBC 10.0, RBC 5.09, Hgb 15.3 H, Hct 46.6, MCV 91.6, MCH 30.1, MCHC 32.8, RDW Std Deviation 43.6, RDW Coeff of Tam 12.8, Plt Count 183, MPV 10.5, Immature Gran % (Auto) 0.300, Neut % (Auto) 61.1, Lymph % (Auto) 27.0, Frontier % (Auto) 9.6, Eos % (Auto) 1.8, Baso % (Auto) 0.2, Absolute Neuts (auto) 6.1, Absolute Lymphs (auto) 2.69, Nucleated RBC % 0, PT 13.0, INR 1.0, APTT 24.0 L, Sodium 142, Potassium 3.0 L, Chloride 110 H, Carbon Dioxide 28.0, Anion Gap 4 L, BUN 19 H, Creatinine 1.16 H, Estim Creat Clear Calc 37.39, Est GFR (MDRD) Af Amer 58 L, Est GFR (MDRD) Non-Af 48 L, BUN/Creatinine Ratio 16.4, Glucose 208 H, Hemoglobin A1c 5.5, Calcium 9.2, Troponin I High Sens 15, Vitamin B12 263, Folate 15.30, TSH 1.360 10/15/24 22:21: Ethyl Alcohol < 3.0 10/16/24 06:20: Magnesium 2.0, Triglycerides 51, Cholesterol 212 H, LDL Cholesterol 130, VLDL Cholesterol 10, HDL Cholesterol 72 Imaging Radiology Impression Brain CT 10/15/24 20:16 IMPRESSION: No acute disease Electronically Signed: Yovany Sheridan MD at 21:29 EST Reading Location ID and State: [address] [place] [address] Tel , Service support , Chest X-Ray 10/15/24 20:30 IMPRESSION: No acute disease Electronically Signed: Yovany Sheridan MD at 21:30 EST , Head/Neck CTA 10/16/24 07:54 IMPRESSION: 1. 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 2. No large vessel occlusion or medial vessel occlusion of the anterior end posterior intracranial circulation. 3. Normal bilateral cervical carotid arteries and vertebral arteries. 4. Normal aortic arch and origins of the great vessels. 5. 3.3 x 2.9 x 4.3 cm left thyroid nodule is mixed solid and cystic mass. Recommend further evaluation with thyroid ultrasound. Electronically Signed: Elgin Alberto MD at 10:07 EST , Active Medications Active Medications Active Medications: Current Medications Generic Name Dose Route Start Last Admin Trade Name Freq PRN Reason Stop Dose Admin Acetaminophen 650 mg 10/15/24 22:54 Acetaminophen 325 Mg Tablet PO Q6H PRN PRN Pain 1-10 Or Fever>99.6 Aspirin 81 mg 10/16/24 08:00 Aspirin 81 Mg Tab.Chew PO DAILYCM HEATHER Atorvastatin Calcium 20 mg 10/15/24 22:54 10/15/24 23:52 Atorvastatin Calcium 20 Mg Tablet PO 20 mg QHS HEATHER Administration Enoxaparin Sodium 30 mg 10/16/24 10:00 Enoxaparin 30 Mg/0.3 Ml Syringe SC DAILY HEATHER Hydralazine HCl 5 mg 10/16/24 07:57 Hydralazine 20 Mg/Ml Vial IV 10/17/24 07:57 Q30M PRN maintain BP parameters with HR <60 Sodium Chloride 1,000 mls @ 100 mls/hr 10/15/24 22:54 10/15/24 23:52 IV 10/16/24 13:43 50 mls/hr .Q10H HEATHER Administration Protocol Sodium Chloride 100 mls @ 15 mls/hr 10/15/24 23:24 IV .Q6H40M PRN Saline Flush Sodium Chloride 100 mls @ 15 mls/hr 10/15/24 23:24 IV .Q6H40M PRN Additional IVPB Infusion Iopamidol 0 ml 10/16/24 08:00 Contrast Allergy Safety Check IV X1 HEATHER Labetalol HCl 10 - 20 mg 10/16/24 07:57 Labetalol 20mg/4ml Syringe IV 10/17/24 07:57 Q10M PRN PRN maintain BP parameters with HR >/=60 Sodium Chloride 10 - 40 ml 10/15/24 23:24 0.9% Saline Lock 10 Ml Syringe IV UD PRN SALINE FLUSH
[2024-10-16] MEDS: Clopidogrel Bisulfate 300 MG Tablet 600 MG PO (11:46)
[2024-10-16] MEDS: 0.9% Saline Lock 10 ML Syringe IV ×2 (20:08→21:13)
[2024-10-16] MEDS: hydrALAZINE 20 MG/ML Vial 10 MG IV (20:08)
[2024-10-16] MEDS: Atorvastatin Calcium 40 MG Tablet PO (20:08)
[2024-10-17] VITALS (11 sets, daily range): BP systolic 160–182; BP diastolic 67–90; PULSE 80–104; RESP 16–18; TEMP 36.3–36.8; O2SAT 95–98; BMI 34.2
[2024-10-17] MEDS: hydrALAZINE 20 MG/ML Vial 10 MG IV (00:42)
[2024-10-17] MEDS: Acetaminophen 325 MG Tablet 650 MG PO (00:55)
[2024-10-17 06:33] LABS: Absolute Lymphocyte Count 1.33 X10^3/uL (0.83-4.51); Absolute Neutrophil Count 9.1 X10^3/uL (2.0-7.7); Basophil# 0.02 X10^3/uL; Basophil% 0.2 % (0-1); Eosinophil# 0.08 X10^3/uL; Eosinophils% 0.7 % (0-5); Hematocrit 46.2 % (37-47); Hemoglobin 15.5 g/dL (12.0-15.0); Lymphocyte # 1.33 X10^3/ul (0.83-4.51); Lymphocyte % 11.6 % (19-41); Mean Corp Hgb Conc 33.5 g/dL (32-36); Mean Corpuscular Hgb 30.2 pg (27.0-32.0); Mean Corpuscular Volume 90.1 fL (81-99); Mean Platelet Vol. 10.5 fl (6.2-12.0); Monocyte# 0.88 X10^3/uL; Monocyte% 7.7 % (0-10); NRBC Flagged by Analyzer 0 % (0-5); Neutrophil # 9.11 X10^3/uL (2.7-7.7); Neutrophil % 79.3 % (47-70); Platelet Count 169 K/mm3 (150-450); Red Blood Count 5.13 M/mm3 (4.2-5.4); White Blood Count 11.5 K/mm3 (4.4-11.0)
[2024-10-17 07:14] LABS: AST(SGOT) 12 U/L (15-37); Alanine Aminotransfer ALT/SGPT 17 U/L (13-56); Albumin, Serum 3.3 g/dL (3.2-5.0); Alkaline Phosphatase 90 U/L (45-117); Anion Gap 6 (5-15); BUN 14 mg/dL (7-18); BUN/Creat Ratio 17.3 RATIO (10-20); Calcium,Total 9.2 mg/dL (8.5-10.1); Chloride 107 mmol/L (98-107); Creatinine, Serum 0.81 mg/dL (0.55-1.02); EST Glomerular Filtration Rate 73 mL/min (>60); Est Glom Filt Rate - Afr Amer 88 mL/min (>60); Estimated Creatinine Clearance 53.36 ml/min; Globulin 3.2 g/dL (2.2-4.2); Glucose 133 mg/dL (74-106); Potassium 3.5 mmol/L (3.5-5.1); Protein, Total 6.5 g/dL (6.4-8.2); Sodium Level 138 mmol/L (136-145)
--- NOTE | 2024-10-17 07:47 | PN.HOSP_ITS ---
Reason for Visit Reason for Visit: Diagnoses Obesity, class 1 (10/16/24) Hypokalemia (10/16/24) Facial weakness (10/16/24) Other symptoms and signs involving cognitive functions and awareness (10/16/24) Weakness (10/16/24) Hyperglycemia, unspecified (10/16/24) Subjective Subjective Patient with no acute events overnight per self and per nursing report. She does states she feels more fatigued and weak today but otherwise no complaints. With neurology evaluation with ongoing persistent left-sided facial droop and some increased ataxia and weakness to the left upper extremity with a little bit of drift although neurology states this was similar to the day prior and actually her speech seems improved. Discussed plan of care with patient and her daughter as well as future primary care NEFTALI Barnes with plan for ongoing BP adjustments and likely discharge 10/18/2024. Patient denies fevers, chills, nausea, emesis, abdominal pain, chest pain or dyspnea. Objective Data Objective Data Vital Signs: Vital Signs Temp Pulse Resp BP Pulse Ox O2 Del Method 97.4 F L 96 17 178/89 H 94 Room Air 10/17/24 07:04 10/17/24 07:04 10/17/24 07:04 10/17/24 07:04 10/17/24 07:04 10/17/24 07:04 Oxygen Delivery Method Room Air Weight: 175 lb Body Mass Index (BMI) 34.2 Intake & Output: Intake and Output for Last 24 Hours 10/15/24 10/16/24 10/17/24 23:59 23:59 23:59 Intake Total 1800.00 / 1800.00 Balance 1800.00 / 1800.00 Lab / Micro Data 10/17/24 05:55 10/17/24 05:55 Labs: Laboratory Results - last 24 hr 10/16/24 06:20: Magnesium 2.0 10/17/24 05:55: WBC 11.5 H, RBC 5.13, Hgb 15.5 H, Hct 46.2, MCV 90.1, MCH 30.2, MCHC 33.5, RDW Std Deviation 43.0, RDW Coeff of Tam 13.0, Plt Count 169, MPV 10.5, Immature Gran % (Auto) 0.500, Neut % (Auto) 79.3 H, Lymph % (Auto) 11.6 L, [place] % (Auto) 7.7, Eos % (Auto) 0.7, Baso % (Auto) 0.2, Absolute Neuts (auto) 9.1 H, Absolute Lymphs (auto) 1.33, Nucleated RBC % 0, Sodium 138, Potassium 3.5, Chloride 107, Carbon Dioxide 26.0, Anion Gap 6, BUN 14, Creatinine 0.81, Estim Creat Clear Calc 53.36, Est GFR (MDRD) Af Amer 88, Est GFR (MDRD) Non-Af 73, BUN/Creatinine Ratio 17.3, Glucose 133 H, Calcium 9.2, Total Bilirubin 0.70, AST 12 L, ALT 17, Alkaline Phosphatase 90, Total Protein 6.5, Albumin 3.3, Globulin 3.2, Albumin/Globulin Ratio 1.0 Radiography Diagnostic Testing: Radiology Impression Head/Neck CTA 10/16/24 07:54 IMPRESSION: 1. 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 2. No large vessel occlusion or medial vessel occlusion of the anterior end posterior intracranial circulation. 3. Normal bilateral cervical carotid arteries and vertebral arteries. 4. Normal aortic arch and origins of the great vessels. 5. 3.3 x 2.9 x 4.3 cm left thyroid nodule is mixed solid and cystic mass. Recommend further evaluation with thyroid ultrasound. Electronically Signed: Elgin Alberto MD at 10:07 EST Reading Location ID and State: [facility] / [place] , Service support , Physical Exam Narrative Physical Examination: General: Awake, alert, oriented x 3 and cooperative, seated upright in PCU bed in no apparent distress, notes some improvement in neurological symptoms. Skin: Normal color, normal turgor, no icterus, no cyanosis. HEENT: AT/NC, EOMI, PERRLA, MMM, poor dentition, still persistent left-sided facial droop although some correction with smiling. Lungs: Mildly diminished, mildly decreased BL bases, no rales, ronchi or wheezing. Heart: Regular rate and rhythm; no gallop, rub audible. Abdomen: Soft, obese, NTTP, ND, normal BS. Extremities: No cyanosis, no clubbing, mild ankle trace pitting edema. Neurological: Patient awake, alert, oriented as noted, cognitive function intact; pupils equally reactive to light and accommodation, cranial nerves grossly normal aside from persistent left-sided facial droop with some correction with smiling, moving all 4 extremities, no focal deficits, strength preserved however she does have some mild left drift upper extremity more pronounced on day prior and also a little ataxia noted with attempts at [id number] left upper extremity, continued equivocal Babinski, speech is more clear even the day prior however. Psychiatric: Affect appears more fatigued, no acute evidence of depressive or anxiety feelings. Assessment & Plan Assessment/Plan (1) Facial droop: PLAN: Plan The patient is a 79 y/o F w/ PMHx: Obesity avoiding medical care and evaluation for many years with likely underlying co-morbidities that have gone undiagnosed who presents to the [facility] ED on 10/15/24 with onset of left-sided facial droop, left upper extremity weakness as well as dysarthric speech and confusion with symptoms beginning approximately 1 week prior to current presentation describing as brain fog prompt eventual ED evaluation. #1. Left-sided facial droop, left upper extremity weakness, dysarthric speech, confusion concerning for Acute CVA with incidentally noted segmental high-grade stenosis along the left anterior pericallosal artery: Chest x-ray with no acute cardiopulmonary findings, CT of the brain with no acute intracranial findings. Admitted to PCU, obtained 10/16/24 CTA head and neck with noted segmental high- grade stenosis along the left anterior pericallosal artery due to small vessel plaques and small vessel plaques without significant stenosis along the right anterior pericallosal artery and both posterior cerebral arteries, no large vessel occlusion or medial vessel occlusion of the anterior or posterior intracranial circulation, normal bilateral cervical carotid arteries and vertebral arteries, normal aortic arch and origins of the great vessels, 3.3 x 2.9 x 4.3 cm left nodule noted to be mixed solid and cystic mass continue judicious hydration given unclear exact kidney function although suspect likely chronic component, MRI of the brain with early subacute ischemic infarct in the right insular lobe and multiple scattered nodular microembolic ischemic infarcts along the right chauhan radiata, right posterior periventricular white matter and cortical gyri of the right parietal lobe and right temporal operculum, ECHO with normal LV size, LV systolic function normal, EF 75%, bubble contrast study negative, PT/OT/Speech/Nutrition evaluation per protocol. Will maintain on asa, added statin w/ AM FLP obtained, fall precautions. Mag 2.0, TSH 1.360, FLP obtained w/ TChol 212/LDL 130/VLDL 10/HDL72, HgbA1c 5.5%. Initially maintained permissive HTN however given timeline and discussion with neurology 10/17/2024 initiated on low-dose lisinopril/hydrochlorothiazide regimen, will continue to monitor and adjust/add regimen as needed. Upon discharge patient will require continued aspirin and Plavix for 90 days with then transition to baby aspirin only following as well as early follow-up with neurology. Discussed primary care establishment at length with patient and family and she will follow with Cameron [employer] at [facility]. Case was discussed with Cameron [employer] and she is amenable to taking this patient entire service. #2. Incidentally noted thyroid nodule, mixed solid and cystic mass: 10/16/24 CTA head and neck obtained with noted incidental 3.3 x 2.9 x 4.3 cm thyroid nodule noted to be mixed solid and cystic mass, TSH normal range, will need follow-up thyroid ultrasound outpatient. #3. Hypokalemia: Admission K+ 3.0, supplementation given, magnesium level requested, 10/17/24 K 3.5, will repeat labs in AM. #4. Hyperglycemia, possibly stress response: Admission glucose 208, HgbA1c 5.5%, possibly elevated secondary to stress response. #5. Elevated BP without hypertensive diagnosis: BP significantly above goal, currently on permissive hypertension, as needed agents per stroke protocol with likely oral transition following #6. Suspected Chronic Kidney Disease Stage II versus stage III per GFR trending, uncertain as no comparison: Admission BUN/Cr 19/1.16, GFR 48, baseline renal function unknown, 10/17/24 BUN/Cr 14/0.81, GFR 73 repeat BMP in AM. #7. Obesity: Weight loss and lifestyle changes encouraged. #8. DVT prophylaxis: Lovenox. Charges/Coding Visit Charges Inpatient E&M: 48190 Subs Hosp L2
[2024-10-17] MEDS: Aspirin 81 MG TAB.CHEW PO (08:44)
[2024-10-17] MEDS: 0.9% Saline Lock 10 ML Syringe IV (08:44)
[2024-10-17] MEDS: Lisinopril 10 MG Tablet PO ×2 (08:44→14:14)
--- NOTE | 2024-10-17 09:30 | MRI_ITS ---
We are attempting to reach an attending provider to discuss findings. An addendum with communication details will be sent when the communication is complete. EXAM: MR HEAD WITHOUT INTRAVENOUS CONTRAST CLINICAL INDICATION: Left-sided Weakness and Facial Droop w/ brain fog. TECHNIQUE: Multiplanar and multisequence MR images of the brain were obtained without intravenous contrast. COMPARISON: CT head without contrast and CTA head and neck with contrast 10/16/2024. FINDINGS: BRAIN AND EXTRA-AXIAL SPACES: Abnormal diffusion restriction in the right insular lobe and scattered nodular diffusion restrictions along the right chauhan radiata, right posterior periventricular white matter and cortical gyri of the right parietal lobe and right temporal operculum. These are also visible on the T2 FLAIR sequence consistent with early subacute ischemic infarcts. Multiple periventricular white matter T2 FLAIR hyperintensity foci in both cerebral hemispheres are chronic white matter ischemic changes. No midline shift. Normal ventricles and cisterns. No communicating or noncommunicating hydrocephalus. No intra- or extra-axial hemorrhage. Posterior fossa structures are unremarkable. SELLA: Unremarkable. Normal sella turcica, pituitary gland, infundibular stalk, optic chiasm and hypothalamus. AUDITORY SYSTEM: Unremarkable. The internal auditory canals are patent. BONES/JOINTS: Unremarkable. No discrete lytic or blastic abnormalities. SINUSES: Unremarkable as visualized. Clear. MASTOID AIR CELLS: Unremarkable as visualized. Clear. ORBITS: Unremarkable as visualized. Both globes, extraocular muscles, optic nerves and retrobulbar fat appear unremarkable. VASCULATURE: Unremarkable as visualized. Normal flow voids in the major intracranial circulation. MRI/Brain without Contrast IMPRESSION: 1. Early subacute ischemic infarct in the right insular lobe and multiple scattered nodular microembolic ischemic infarcts along the right chauhan radiata, right posterior periventricular white matter and cortical gyri of the right parietal lobe and right temporal operculum. 2. Chronic periventricular white matter ischemic changes in both cerebral hemispheres. Electronically Signed: Elgin Alberto MD at 10:27 EST ,
--- NOTE | 2024-10-17 10:30 | PN.NEURO_ITS ---
Objective Data Objective Data Vital Signs: Vital Signs Temp Pulse Resp BP Pulse Ox O2 Del Method 97.4 F L 92 17 182/85 H 94 Room Air 10/17/24 07:04 10/17/24 08:42 10/17/24 07:04 10/17/24 08:42 10/17/24 07:04 10/17/24 07:04 Oxygen Delivery Method Room Air Weight: 79.379 kg Body Mass Index (BMI) 34.2 Intake & Output: Intake and Output for Last 24 Hours 10/15/24 10/16/24 10/17/24 23:59 23:59 23:59 Intake Total 1800.00 / 1800.00 Balance 1800.00 / 1800.00 Lab / Micro Data 10/17/24 05:55 10/17/24 05:55 Labs: Laboratory Results - last 24 hr 10/17/24 05:55: WBC 11.5 H, RBC 5.13, Hgb 15.5 H, Hct 46.2, MCV 90.1, MCH 30.2, MCHC 33.5, RDW Std Deviation 43.0, RDW Coeff of Tam 13.0, Plt Count 169, MPV 10.5, Immature Gran % (Auto) 0.500, Neut % (Auto) 79.3 H, Lymph % (Auto) 11.6 L, Evans % (Auto) 7.7, Eos % (Auto) 0.7, Baso % (Auto) 0.2, Absolute Neuts (auto) 9.1 H, Absolute Lymphs (auto) 1.33, Nucleated RBC % 0, Sodium 138, Potassium 3.5, Chloride 107, Carbon Dioxide 26.0, Anion Gap 6, BUN 14, Creatinine 0.81, Estim Creat Clear Calc 53.36, Est GFR (MDRD) Af Amer 88, Est GFR (MDRD) Non-Af 73, BUN/Creatinine Ratio 17.3, Glucose 133 H, Calcium 9.2, Total Bilirubin 0.70, AST 12 L, ALT 17, Alkaline Phosphatase 90, Total Protein 6.5, Albumin 3.3, Globulin 3.2, Albumin/Globulin Ratio 1.0 Radiography Diagnostic Testing: Radiology Impression Brain MRI 10/17/24 09:30 IMPRESSION: 1. Early subacute ischemic infarct in the right insular lobe and multiple scattered nodular microembolic ischemic infarcts along the right chauhan radiata, right posterior periventricular white matter and cortical gyri of the right parietal lobe and right temporal operculum. 2. Chronic periventricular white matter ischemic changes in both cerebral hemispheres. Electronically Signed: Elgin Alberto MD at 10:27 EST , Physical Exam Narrative EOMI, facial weakness on the L is more pronounced today but largely stable (was waxing and waning yesterday) No dysarthria on exam today LUE is weaker than yesterday (yesterday with pronation and minimal drift, today with obvious drift and unable to complete FTN testing) LLE without drift but clearly harder to lift today than yesterday sensation intact b/l sensory extinction on the L Subject: Neurology Subjective Concern for worsening overnight. Pt seems stable but with worsening weakness in the L arm - unclear when exactly that happened. Pt states she feels improved. Assessment and Plan: Stroke Assessment/Plan DEREK ALEJANDRE is a 79 F with a history of who presents for evaluation of L sided weakness, found to have a RM2, distal M1 occlusion with reconstituted flow and early evolving hypodensity of the R insula Unclear eitology of stroke, has ICAD on imaging and mild symptoms in setting of LVO suggestive of a chronic atherosclerotic lesion likely but would not rule out cardioembolic causes yet L arm is slightly weaker this morning but waxing and waning dysarthria is improved. Her exam is within expected parameters of her imaging. - s/p Plavix load, cont ASA 81mg + Plavix 75mg daily for 90 days then aSA 81mg alone - LDL 130, A1C 5.0 - rec atorvastatin 40mg - pending TTE w bubble study - MRI Brain with stable strokes seen on the CTH, no concern for extension of the stroke - SBP goal 120-160 for today given stable exam at 140-180 - Occupational/ Physical therapy consults - NPO until swallow evaluation. IVF until able to take po - DVT prophylaxis with SCDs and heparin SQ - Vascular risk factor modification. The following are the recommended guidelines: LDL Goal < 70 Smoking Cessation Diabetes Management snf blood pressure control should achieve <130/80 mmHg. BP management should aim to achieve director long term care contorl in a reasonable amount of time, taking into consideration the individual patient's requirements and characteristics. Weight Management: Goal for BMI is 18.5 -24.9 kg/m2 Alcohol: No more than 2 drinks/day for men or 1 drink/day for non- women - Promote lifestyle modification: weight control, physical activity, moderation of alcohol intake, moderate sodium intake. If clinical worsening - may wrt weakness on the L side, please lay flat, bolus with 500cc IVF and reach out to provider.
[2024-10-17] MEDS: Clopidogrel Bisulfate 75 MG Tablet PO (11:05)
[2024-10-17] MEDS: Enoxaparin 30 MG/0.3 ML Syringe SC (11:05)
[2024-10-17] MEDS: hydroCHLOROthiazide 12.5mg 12.5 MG PO (11:34)
--- NOTE | 2024-10-17 13:15 | CASEMGMT ---
Social Work Pt completed PHQ-9 completed w/pt, pt scored a 0. No indications of depression indicated through the PHQ-9 assessment at this time. MELIDA Cat
--- NOTE | 2024-10-17 13:35 | CASEMGMT ---
DINA KATZ Assessment Face to Face with patient for initial transition planning/care coordination assessment. DINA KATZ introduced self and role at [facility], pt voices understanding. Pt is A&Ox4 and is resting comfortably in bed and is calm. Pt daughter (Chelsea) at bedside. Care providers, pharmacy, and demographics verified. Admitting dx: TIA vs CVA LACE Strata: 1 PCP: No PCP. Pt states that she wants to become established with Alicia Leonardo DNP. PCU refinery operator crude unit is aware and will make a appt for the pt. Dr. Perez is aware and states that she would also like the pt to follow up with Dr. Moy (Neuro). Pt educated that the f/u appts will be in the DC instructions and states understanding Specialists: see above [facility] Insurance: [facility] A/B, AARP Prescription Benefit: Yes LNOK: Jose De Jesus (Son - Lives very close to pt), Chelsea Noble (Daughter) Living Arrangements: Pt lives alone in a single story home with 2 steps to enter. Pt son lives next door to the pt ADLs/IADLs: Ind Transportation: Pt son provides transportation and the pt denies concerns DME: FWW, Cane, BP Monitor, walk in shower HHC/SNF: Denies hx or needs Pt?s goal: home with OP Tx Plan: Home with OP ST, PT, & OT. Rx signed by Dr. Perez. Pt states that she is agreeable to this and states that she will make her own appt for HP. Pt denies further questions or concerns and states that she feels safe with this plan at this time and per Dr. Perez, the pt is projected for DC tomorrow. Report given to PARTS CASTING MACHINE OPERATOR CM. Tomi Maradiaga RN, CM
--- NOTE | 2024-10-17 15:11 | NURSING ---
Patient wants her [id number], Leyda Mcdaniel, to be added to the list to be able to call in for updates.
[2024-10-17] MEDS: amLODIPine 5 MG Tablet PO (16:45)
[2024-10-17] MEDS: Atorvastatin Calcium 40 MG Tablet PO (21:13)
[2024-10-18] VITALS: BMI 34.2
[2024-10-18 00:56] VITALS: BMI 34.2
[2024-10-18 03:00] VITALS: BP 153/87; PULSE 82; RESP 18; TEMP 36.8; O2SAT 97
--- NOTE | 2024-10-18 06:56 | PCM.PN.HOSP ---
Reason for Visit Reason for Visit: Diagnoses Obesity, class 1 (10/16/24) Hypokalemia (10/16/24) Facial weakness (10/16/24) Other symptoms and signs involving cognitive functions and awareness (10/16/24) Weakness (10/16/24) Hyperglycemia, unspecified (10/16/24) Subjective Subjective Patient with no acute events overnight per self and per nursing report. This morning discussed patient with nursing staff and also with patient and her exam does vacillate during the day with more fatigued in the with seemingly more weakness to the left upper extremity but seems to improve throughout the day which has been the pattern. This morning patient smile is improved and her speech is improved but the left upper extremity is significantly weak and she is unable to effectively move it without using her right hand. Patient and family decision to change to alternate PCP and also requested transition to rehab which was arranged. Patient denies fevers, chills, nausea, emesis, abdominal pain, chest pain or dyspnea. Objective Data Objective Data Vital Signs: Vital Signs Temp Pulse Resp BP Pulse Ox O2 Del Method 98.2 F 82 18 153/87 H 97 Room Air 10/18/24 03:00 10/18/24 03:00 10/18/24 03:00 10/18/24 03:00 10/18/24 03:00 10/18/24 03:00 Oxygen Delivery Method Room Air Weight: 175 lb Body Mass Index (BMI) 34.2 Intake & Output: Intake and Output for Last 24 Hours 10/16/24 10/17/24 10/18/24 23:59 23:59 23:59 Intake Total 1800.00 / 1800.00 Balance 1800.00 / 1800.00 Lab / Micro Data 10/18/24 07:29 10/17/24 05:55 Labs: Laboratory Results - last 24 hr 10/17/24 05:55: Sodium 138, Potassium 3.5, Chloride 107, Carbon Dioxide 26.0, Anion Gap 6, BUN 14, Creatinine 0.81, Estim Creat Clear Calc 53.36, Est GFR (MDRD) Af Amer 88, Est GFR (MDRD) Non-Af 73, BUN/Creatinine Ratio 17.3, Glucose 133 H, Calcium 9.2, Total Bilirubin 0.70, AST 12 L, ALT 17, Alkaline Phosphatase 90, Total Protein 6.5, Albumin 3.3, Globulin 3.2, Albumin/Globulin Ratio 1.0 Radiography Diagnostic Testing: Radiology Impression Carotid Duplex 10/15/24 21:54 Interpretation Summary Normal right extracranial internal carotid. Normal left extracranial internal carotid. Patent and antegrade vertebrals bilaterally. Ordering Physician: Curly Sadler Performed By: Nathalia Cruz RVT and Student Echocardiogram 10/15/24 21:54 Interpretation Summary Normal LV size. Left ventricular systolic function is normal. The estimated ejection fraction is 70 %. Bubble contrast study is negative for PFO/ASD. Ordering Physician: Ivis Perez Performed By: Saniya Rodriguez RCS Brain MRI 10/17/24 09:30 IMPRESSION: 1. Early subacute ischemic infarct in the right insular lobe and multiple scattered nodular microembolic ischemic infarcts along the right chauhan radiata, right posterior periventricular white matter and cortical gyri of the right parietal lobe and right temporal operculum. 2. Chronic periventricular white matter ischemic changes in both cerebral hemispheres. Electronically Signed: Elgni Alberto MD at 10:27 EST , ADDENDUM: 10/17/24 1053 IMPRESSION: 1. Early subacute ischemic infarct in the right insular lobe and multiple scattered nodular microembolic ischemic infarcts along the right chauhan radiata, right posterior periventricular white matter and cortical gyri of the right parietal lobe and right temporal operculum. 2. Chronic periventricular white matter ischemic changes in both cerebral hemispheres. N.B. : The above Results were Read Back by Elgin Alberto MD to Lilli Espinoza RN, and understanding confirmed on 10/17/2024 10:44:41 (ET). Electronically Signed: Elgin Alberto MD at 10:27 EST , Physical Exam Narrative Physical Examination: General: Awake, alert, oriented x 3 and cooperative, seated upright in PCU bedside chair, able to smile more although when she lets this mild global she still does not have any nasolabial folds noted, speech is improving. Skin: Normal color, normal turgor, no icterus, no cyanosis. HEENT: AT/NC, EOMI, PERRLA, MMM, poor dentition, still persistent left-sided facial droop although again improved correction with smiling. Lungs: Mildly diminished, mildly decreased BL bases, no rales, ronchi or wheezing. Heart: Regular rate and rhythm; no gallop, rub audible. Abdomen: Soft, obese, NTTP, ND, normal BS. Extremities: No cyanosis, no clubbing, mild ankle trace pitting edema. Neurological: Patient awake, alert, oriented as noted, cognitive function intact; pupils equally reactive to light and accommodation, cranial nerves grossly normal aside from left-sided facial droop with some correction with smiling, increased left upper extremity weakness today with inability to lift, sensation is intact, per discussion with nursing staff and patient exam seems to vacillate and is worse in the morning with improvement with the afternoon. Psychiatric: Affect appears interactive but fatigued, no acute evidence of depressive or anxiety feelings. Assessment & Plan Assessment/Plan (1) Facial droop: PLAN: Plan The patient is a 79 y/o F w/ PMHx: Obesity avoiding medical care and evaluation for many years with likely underlying co-morbidities that have gone undiagnosed who presents to the [facility] ED on 10/15/24 with onset of left-sided facial droop, left upper extremity weakness as well as dysarthric speech and confusion with symptoms beginning approximately 1 week prior to current presentation describing as brain fog prompt eventual ED evaluation. #1. Left-sided facial droop, left upper extremity weakness, dysarthric speech, confusion concerning for Acute CVA with incidentally noted segmental high-grade stenosis along the left anterior pericallosal artery: Chest x-ray with no acute cardiopulmonary findings, CT of the brain with no acute intracranial findings. 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 artery due to small vessel plaques and small vessel plaques without significant stenosis along the right anterior pericallosal artery and both posterior cerebral arteries, no large vessel occlusion or medial vessel occlusion of the anterior or posterior intracranial circulation, normal bilateral cervical carotid arteries and vertebral arteries, normal aortic arch and origins of the great vessels, 3.3 x 2.9 x 4.3 cm left nodule noted to be mixed solid and cystic mass continue judicious hydration given unclear exact kidney function although suspect likely chronic component, MRI of the brain with early subacute ischemic infarct in the right insular lobe and multiple scattered nodular microembolic ischemic infarcts along the right chauhan radiata, right posterior periventricular white matter and cortical gyri of the right parietal lobe and right temporal operculum, ECHO with normal LV size, LV systolic function normal, EF 75%, bubble contrast study negative, PT/OT/Speech/Nutrition evaluation per protocol. Will maintain on asa, added statin w/ AM FLP obtained, fall precautions. Mag 2.0, TSH 1.360, FLP obtained w/ TChol 212/LDL 130/VLDL 10/HDL72, HgbA1c 5.5%. Initially maintained permissive HTN however given timeline and discussion with neurology 10/17/2024 initiated on low-dose lisinopril/hydrochlorothiazide regimen, will continue to monitor and adjust/add regimen as needed. Upon discharge patient will require continued aspirin and Plavix for 90 days with then transition to baby aspirin only following as well as early follow-up with neurology. Initially plan had been to follow-up with [facility] clinic however family change their mind and requested patient follow-up with [facility] Dr. Baltazar as well as neurologist Dr. Moy. 10/18/2024 patient and family requested consideration for rehab with referral made and patient was accepted. 10/18/[address] Duran requested patient be transitioned off of hydrochlorothiazide and continued only on Norvasc and lisinopril with plan for her to continue monitor blood pressures and make further adjustments as needed. #2. Incidentally noted thyroid nodule, mixed solid and cystic mass: 10/16/24 CTA head and neck obtained with noted incidental 3.3 x 2.9 x 4.3 cm thyroid nodule noted to be mixed solid and cystic mass, TSH normal range, will need follow-up thyroid ultrasound outpatient which was discussed with rehab physician to be relayed onward to primary care physician at follow-up outpatient. #3. Hypokalemia: Admission K+ 3.0, supplementation given, magnesium level requested, 10/17/24 K 3.5. 10/18/2024 CMP pending. #4. Hyperglycemia, possibly stress response: Admission glucose 208, HgbA1c 5.5%, possibly elevated secondary to stress response. #5. Elevated BP without hypertensive diagnosis: Upon presentation BP significantly above goal, initially treated with permissive hypertension, 10/17/2024 initiated hypertensive regimen with adjustments and alterations as noted above. 10/18/2024 BP improved with changes per rehab physician request with continued monitoring planned in rehab with further adjustments as needed. #6. Suspected Chronic Kidney Disease Stage II versus stage III per GFR trending, uncertain as no comparison: Admission BUN/Cr 19/1.16, GFR 48, baseline renal function unknown, 10/17/24 BUN/Cr 14/0.81, GFR 73. Pending 10/18/2024 CMP. #7. Obesity: Weight loss and lifestyle changes encouraged. #8. DVT prophylaxis: Lovenox. Charges/Coding Visit Charges Inpatient E&M: 82057 Subs Hosp L2
[2024-10-18 07:00] VITALS: BP 156/72; PULSE 84; RESP 16; TEMP 36.7; O2SAT 96
[2024-10-18 07:47] LABS: Absolute Lymphocyte Count 1.87 X10^3/uL (0.83-4.51); Absolute Neutrophil Count 6.3 X10^3/uL (2.0-7.7); Basophil# 0.04 X10^3/uL; Basophil% 0.4 % (0-1); Eosinophil# 0.23 X10^3/uL; Eosinophils% 2.4 % (0-5); Hematocrit 50.2 % (37-47); Hemoglobin 16.8 g/dL (12.0-15.0); Lymphocyte # 1.87 X10^3/ul (0.83-4.51); Lymphocyte % 19.8 % (19-41); Mean Corp Hgb Conc 33.5 g/dL (32-36); Mean Corpuscular Hgb 30.1 pg (27.0-32.0); Mean Platelet Vol. 10.4 fl (6.2-12.0); Monocyte# 1.02 X10^3/uL; Monocyte% 10.8 % (0-10); NRBC Flagged by Analyzer 0 % (0-5); Neutrophil # 6.27 X10^3/uL (2.7-7.7); Neutrophil % 66.3 % (47-70); Platelet Count 177 K/mm3 (150-450); RBC Distribution Width SD 42.7 fl (35.1-43.9); Red Blood Count 5.58 M/mm3 (4.2-5.4); White Blood Count 9.5 K/mm3 (4.4-11.0)
[2024-10-18 08:30] VITALS: BMI 34.2
--- NOTE | 2024-10-18 08:53 | CASEMGMT ---
Addendum entered by Amy Chun 10/18/24 09:29: Social Work Pt accepted in rehab. SW let pt know, physician discharged pt. SW let bedside RN know as well. SW will let daughter know when she gets here, daughter had informed SW she would be here about 10am. MELIDA Cat Original Note: Social Work As per RN, family is thinking about rehab for pt. SW spoke w/pt regarding rehab, provided to pt a list from [facility] of rehab facilities in network w/pt's insurance, in pt's preferred geographic area and complete w/quality and resource use data. Pt mentioned [facility] to SW as a place family had talked about for pt to go. SW educated pt on difference between acute rehab and SNF, explained acute rehab may be a better option for pt. Pt states to call her daughter. SW called daughter Chelsea, spoke w/her about options, educated her to the difference between acute rehab and SNF. SW reviewed acute rehab list w/daughter. Daughter would like a referral made to [facility] rehab. SW made referral, awaiting response. SW updated physician of referral. MELIDA Cat
--- NOTE | 2024-10-18 09:04 | DCINST_ITS ---
Discharge Instructions Diet Discharge Diet: Low fat / Low cholesterol DC O2, CPAP, BIPAP needs Home O2 Discharge instructions: No Dressing / Incision Discharge Activity: - (Encourage ongoing activities with PT/OT.) May resume sexual activity in: 10-14 days Dressing / Incision Call your doctor if you observe: Fever of 101 or Higher, Inability to urinate, Shortness of breath, Dizziness, Swelling in the ankles, Chest pain, Increased palpitations (irregular heartbeat), Calf discomfort and Uncontrolled pain Follow Up Care Test Results: Test results from this visit will be discussed in further detail at your follow- up appointment, if applicable. Discharge Plan Admission Admit Date/Time: 10/16/24 14:34 Primary Reason for Your Visit: Acute CVA, Hypertension newly diagnosed, Thyroid nodule, Suspected CKD Attending Provider: Ivis Perez Primary Care Provider: Care Physician,Brittaney Primary Consulting Providers: Curly Sadler; Tu Banks; Caryn Correia; Lourdes García; Amarilis Carlos; Kimber Christian; Ace Arora; Anahi Rodriguez; Tamir Wilson; Evgeny Crook; Geovanny Ladd; Romana West; Bret Garcia; Maryam Worthington; Patricia Beltre; Ed Anders; Antione Ivey; Migdalia Davis; Nithin Tucker; Isis Perez; Haven Omalley Instructions Patient Instructions: Stroke: Taking Medicines, Stroke Self Care After, Stroke Prevention Eating Healthy Additional Instructions / Restrictions: ADDITIONAL DISCHARGE INSTRUCTIONS/PLAN OF CARE: --MRI of the brain with early subacute ischemic infarct in the right insular lobe and multiple scattered nodular microembolic ischemic infarcts along the right chauhan radiata, right posterior periventricular white matter and cortical gyri of the right parietal lobe and right temporal operculum as well as chronic periventricular white matter ischemic changes in both cerebral hemispheres. 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 --Echocardiogram with normal LV size, LV systolic function normal, EF 70%, bubble contrast study negative for PFO/ASD. --Inpatient you were administered an aspirin and plavix loading dose with then transition to baby aspirin and plavix 75 mg daily. This dual treatment should be continued for 90 days with then transition to aspirin only. --Continue newly started moderate dose statin therapy with the goal for your cholesterol and LDL less than 70. --Continue physical, occupational and speech therapy. --Continue newly initiated hypertensive medication with goal currently less than 160 but above 120 systolic blood pressure however, this may need to be further adjusted outpatient with preference to avoid hypotension but eventually preference for less than 130/80 millimeter mercury. --Weight loss and lifestyle changes are important with an ideal body mass index between 19 and 25. --Also strongly recommend no more than 5-7 alcoholic beverages per week with maximum 1 drink daily. --Please continue to follow with primary care as well as neurology as recommended. --On CTA head and neck you had an incidentally noted 3.3 x 2.9 x 4.3 cm left thyroid nodule of mixed solid and cystic mass type with normal thyroid function. Discussed with your new primary care and this will need to be followed up with an ultrasound of the thyroid in an outpatient setting. Discharge Orders/Prescriptions Prescriptions: New aspirin 81 mg Tablet,Chewable 81 mg PO DAILYCM 30 Days Qty: 30 0RF atorvastatin 40 mg Tablet 40 mg PO QHS 30 Days Qty: 30 0RF clopidogrel 75 mg Tablet 75 mg PO DAILY 30 Days Qty: 30 0RF amlodipine 5 mg Tablet 5 mg PO DAILY 30 Days Qty: 30 0RF lisinopril-hydrochlorothiazide 20-12.5 mg tablet 1 tab PO DAILY Qty: 30 0RF Referrals / Follow Up: Fransisco Baltazar MD [Med Staff - Active Staff] - (Please establish and follow- up with Dr. Baltazar within ideally 1-2 days of discharge from Acute Rehab.) Geremias Moy MD [Non-Staff] - (Please follow-up with Neurology, may see other physicians with earlier availability in the office at first open visit. She is s/p recent CVA. May see BARIATRIC PROGRAM COORDINATOR/PA.) Disposition Disposition (needs filled in before D/C Order can be placed): Inpatient Rehab Unit/Facility
[2024-10-18 09:36] VITALS: BP 145/70; PULSE 109; RESP 18; TEMP 36.7; O2SAT 95
[2024-10-18] MEDS: amLODIPine 5 MG Tablet PO (09:41)
[2024-10-18] MEDS: Enoxaparin 40 MG/0.4 ML Syringe SC (09:41)
[2024-10-18] MEDS: Lisinopril 20 MG Tablet PO (09:41)
[2024-10-18] MEDS: Aspirin 81 MG TAB.CHEW PO (09:41)
[2024-10-18] MEDS: Clopidogrel Bisulfate 75 MG Tablet PO (09:41)
--- NOTE | 2024-10-18 09:42 | DS.PCM_ITS ---
Providers Date of Admission: 10/16/24 Date of Discharge: 10/18/24 Primary Care Physician: Brittaney Primary Care Phys Consultations 10/15/24 22:54 Consult: Tele-Neurology Routine Consulting Provider: [facility] Reason for Consult: Acute Ischemic Stroke/TIA EMERGENT Consult: No MD Notified: Yes Date Notified: 10/15/24 Time Notified: 03:00 Method of Notification: Answering Service Method of Consult:: Telemedicine Nursing Unit Staff Notify [facility] of Tele-Neurology Consult: Yes Reason For Visit: TIA VS CVA Diagnosis Discharge Diagnosis (1) Facial droop: Status: Acute Code(s): R29.810 - Facial weakness Plan: DISCHARGE DIAGNOSES: #1. Left-sided facial droop, left upper extremity weakness, dysarthric speech, confusion secondary to Early Subacute ischemic infarct right insular lobe and multiple scattered nodular microembolic infarcts along the right chauhan radiata, right posterior periventricular white matter, cortical gyri of the right prior lobe and temporal lobe operculum with incidentally noted segmental high-grade stenosis along the left anterior pericallosal artery #2. Incidentally noted thyroid nodule, mixed solid and cystic mass #3. Hypokalemia #4. Hyperglycemia, stress response, HgbA1c 5.5% #5. Elevated BP without hypertensive diagnosis, Hypertensive Emergency given #1, New diagnosis Hypertension at discharge #6. Suspected Chronic Kidney Disease Stage II versus stage III per GFR trending, uncertain as no past comparison #7. Obesity Medications at Discharge Home Medications aspirin 81 mg chewable tablet 81 mg PO DAILYCM Stroke 30 days #30 tabs 10/17/24 atorvastatin 40 mg tablet 40 mg PO QHS HLD, stroke 30 days #30 tabs 10/17/24 clopidogrel 75 mg tablet 75 mg PO DAILY Stroke 30 days #30 tabs 10/17/24 amlodipine 5 mg tablet 5 mg PO DAILY 30 days #30 tabs 10/18/24 lisinopril 20 mg tablet 20 mg PO DAILY #30 tabs 10/18/24 Hospital Course Operations None Procedures EKG Summary of Care Provided Minutes Spent on Discharge: 35 Hospital Course: The patient is a 79 y/o F w/ PMHx: Obesity avoiding medical care and evaluation for many years with likely underlying co-morbidities that have gone undiagnosed who presents to the [facility] ED on 10/15/24 with onset of left-sided facial droop, left upper extremity weakness as well as dysarthric speech and confusion with symptoms beginning approximately 1 week prior to current presentation describing as brain fog prompt eventual ED evaluation. 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 artery due to small vessel plaques and small vessel plaques without significant stenosis along the right anterior pericallosal artery and both posterior cerebral arteries, no large vessel occlusion or medial vessel occlusion of the anterior or posterior intracranial circulation, normal bilateral cervical carotid arteries and vertebral arteries, normal aortic arch and origins of the great vessels, 3.3 x 2.9 x 4.3 cm left nodule noted to be mixed solid and cystic mass continue judicious hydration given unclear exact kidney function although suspect likely chronic component, MRI of the brain with early subacute ischemic infarct in the right insular lobe and multiple scattered nodular microembolic ischemic infarcts along the right chauhan radiata, right posterior periventricular white matter and cortical gyri of the right parietal lobe and right temporal operculum, ECHO with normal LV size, LV systolic function normal, EF 75%, bubble contrast study negative, PT/OT/Speech/Nutrition evaluation per protocol. Will maintain on asa, added statin w/ AM FLP obtained, fall precautions. Mag 2.0, TSH 1.360, FLP obtained w/ TChol 212/LDL 130/VLDL 10/HDL72, HgbA1c 5.5%. Initially maintained permissive HTN however given timeline and discussion with neurology 10/17/2024 initiated on low-dose lisinopril/hydrochlorothiazide regimen, will continue to monitor and adjust/add regimen as needed. Upon discharge patient will require continued aspirin and Plavix for 90 days with then transition to baby aspirin only following as well as early follow-up with neurology. Initially plan had been to follow-up with [facility] including clinic however family change their mind and requested patient follow-up with [facility] Dr. Baltazar as well as neurologist Dr. Moy. 10/18/2024 patient and family requested consideration for rehab with referral made and patient was accepted. 10/18/[address] Duran requested patient be transitioned off of hydrochlorothiazide and continued only on Norvasc and lisinopril with plan for her to continue monitor blood pressures and make further adjustments as needed. Patient discharged to acute rehab for ongoing physical, occupational and speech therapy with continue medication with adjustments as needed as noted with with once discharge from rehab plan to follow-up with new primary care physician and neurology as noted. Weight / BMI Weight Weight: 175 lb Body Mass Index (BMI) 34.2 ABG / Lab / Microbiology Data 10/18/24 07:29 10/17/24 05:55 Laboratory: Laboratory Results - last 24 hr 10/18/24 07:29: WBC 9.5, RBC 5.58 H, Hgb 16.8 H, Hct 50.2 H, MCV 90.0, MCH 30.1, MCHC 33.5, RDW Std Deviation 42.7, RDW Coeff of Tam 13.0, Plt Count 177, MPV 10.4, Immature Gran % (Auto) 0.300, Neut % (Auto) 66.3, Lymph % (Auto) 19.8, M brennen % (Auto) 10.8 H, Eos % (Auto) 2.4, Baso % (Auto) 0.4, Absolute Neuts (auto) 6.3, Absolute Lymphs (auto) 1.87, Nucleated RBC % 0 Radiography Diagnostic Testing: Radiology Impression Carotid Duplex 10/15/24 21:54 Interpretation Summary Normal right extracranial internal carotid. Normal left extracranial internal carotid. Patent and antegrade vertebrals bilaterally. Ordering Physician: Curly Sadler Performed By: Nathalia Cruz RVT and Student Echocardiogram 10/15/24 21:54 Interpretation Summary Normal LV size. Left ventricular systolic function is normal. The estimated ejection fraction is 70 %. Bubble contrast study is negative for PFO/ASD. Ordering Physician: vIis Perez Performed By: Saniya Rodriguez RCS Brain MRI 10/17/24 09:30 IMPRESSION: 1. Early subacute ischemic infarct in the right insular lobe and multiple scattered nodular microembolic ischemic infarcts along the right chauhan radiata, right posterior periventricular white matter and cortical gyri of the right parietal lobe and right temporal operculum. 2. Chronic periventricular white matter ischemic changes in both cerebral hemispheres. Electronically Signed: Elgin Alberto MD at 10:27 EST , ADDENDUM: 10/17/24 1051 IMPRESSION: 1. Early subacute ischemic infarct in the right insular lobe and multiple scattered nodular microembolic ischemic infarcts along the right chauhan radiata, right posterior periventricular white matter and cortical gyri of the right parietal lobe and right temporal operculum. 2. Chronic periventricular white matter ischemic changes in both cerebral hemispheres. N.B. : The above Results were Read Back by Elgin Alberto MD to Lilli Espinoza RN, and understanding confirmed on 10/17/2024 10:44:41 (ET). Electronically Signed: Elgin Alberto MD at 10:27 EST , D/C Instructions Discharge Diet: Low fat / Low cholesterol May resume sexual activity in: 10-14 days Call your doctor if you observe: Fever of 101 or Higher, Inability to urinate, Shortness of breath, Dizziness, Swelling in the ankles, Chest pain, Increased palpitations (irregular heartbeat), Calf discomfort and Uncontrolled pain DC O2, CPAP, BIPAP Needs Home O2 Discharge instructions: No Meaningful Use Info Meaningful Use Meaningful Use Diagnoses (Choose all that apply): Ischemic CVA CVA Therapy Assessed for PT,OT and/or ST?: Yes Ischemic Stroke Antithrombotic order at d/c?: Yes Dx of Atrial fib/flutter?: No Anticoagulant at discharge?: No Reason anticoagulant not ordered: Treatment not Indicated Statin Dosing Therapy Reference: STATIN DOSE THERAPY REFERENCE: * Patients > 75 years receive moderate or high dose statin therapy. * Patients 75 years or YOUNGER should receive HIGH intensity statin dose unless contraindicated. You will be required to document reason for non-treatment if statin daily dose does not meet guidelines. HIGH DOSE STATIN THERAPY DAILY Atorvastatin > than or = to 40 mg Rosuvastatin > than or = to 20 mg Amlodipine + Atorvastatin > than or = to 2.5/40 mg Ezetimibe + Simvastatin 10/80 mg Simvastatin 80mg Statins at discharge?: Yes Primary Dx Acute Ischemic CVA?: Yes IV thrombolytic ordered during stay?: No Reason IV thrombolytic not ordered: Treatment not Indicated Discharge Plan Admission Admit Date/Time: 10/16/24 14:34 Primary Reason for Your Visit: Acute CVA, Hypertension newly diagnosed, Thyroid nodule, Suspected CKD Attending Provider: Ivis Perez Primary Care Provider: Care Physician,No Primary Consulting Providers: Curly Sadler; Tu Banks; Caryn Correia; Lourdes García; Amarilis Carlos; Kimber Christian; Ace Arora; Anahi Rodriguez; Tamir Wilsno; Evgeny Crook; Geovanny Ladd; Romana West; Bret Garcia; Maryam Worthington; Patricia Beltre; Ed Anders; Antione Ivey; Migdalia Davis; Nithin Tucker; Isis Perez; Shahram,Haven Instructions Patient Instructions: Stroke: Taking Medicines, Stroke Self Care After, Stroke Prevention Eating Healthy Additional Instructions / Restrictions: ADDITIONAL DISCHARGE INSTRUCTIONS/PLAN OF CARE: --MRI of the brain with early subacute ischemic infarct in the right insular lobe and multiple scattered nodular microembolic ischemic infarcts along the right chauhan radiata, right posterior periventricular white matter and cortical gyri of the right parietal lobe and right temporal operculum as well as chronic periventricular white matter ischemic changes in both cerebral hemispheres. 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 --Echocardiogram with normal LV size, LV systolic function normal, EF 70%, bubble contrast study negative for PFO/ASD. --Inpatient you were administered an aspirin and plavix loading dose with then transition to baby aspirin and plavix 75 mg daily. This dual treatment should be continued for 90 days with then transition to aspirin only. --Continue newly started moderate dose statin therapy with the goal for your cholesterol and LDL less than 70. --Continue physical, occupational and speech therapy. --Continue newly initiated hypertensive medication with goal currently less than 160 but above 120 systolic blood pressure however, this may need to be further adjusted outpatient with preference to avoid hypotension but eventually preference for less than 130/80 millimeter mercury. --Weight loss and lifestyle changes are important with an ideal body mass index between 19 and 25. --Also strongly recommend no more than 5-7 alcoholic beverages per week with maximum 1 drink daily. --Please continue to follow with primary care as well as neurology as recommended. --On CTA head and neck you had an incidentally noted 3.3 x 2.9 x 4.3 cm left thyroid nodule of mixed solid and cystic mass type with normal thyroid function. Discussed with your new primary care and this will need to be followed up with an ultrasound of the thyroid in an outpatient setting. Discharge Orders/Prescriptions Prescriptions: New aspirin 81 mg Tablet,Chewable 81 mg PO DAILYCM 30 Days Qty: 30 0RF atorvastatin 40 mg Tablet 40 mg PO QHS 30 Days Qty: 30 0RF clopidogrel 75 mg Tablet 75 mg PO DAILY 30 Days Qty: 30 0RF amlodipine 5 mg Tablet 5 mg PO DAILY 30 Days Qty: 30 0RF lisinopril 20 mg tablet 20 mg PO DAILY Qty: 30 0RF Referrals / Follow Up: Fransisco Baltazar MD [Med Staff - Active Staff] - (Please establish and follow- up with Dr. Baltazar within ideally 1-2 days of discharge from Acute Rehab.) Geremias oMy MD [Non-Staff] - (Please follow-up with Neurology, may see other physicians with earlier availability in the office at first open visit. She is s/p recent CVA. May see [facility]/PA.) Disposition Disposition (needs filled in before D/C Order can be placed): Inpatient Rehab Unit/Facility Charges/Coding Visit Charges Inpatient E&M: 61282 Disch Hosp >30min
[2024-10-18 09:47] LABS: AST(SGOT) 13 U/L (15-37); Alanine Aminotransfer ALT/SGPT 16 U/L (13-56); Albumin, Serum 3.4 g/dL (3.2-5.0); Alkaline Phosphatase 97 U/L (45-117); Anion Gap 8 (5-15); BUN 16 mg/dL (7-18); BUN/Creat Ratio 18.8 RATIO (10-20); Calcium,Total 9.4 mg/dL (8.5-10.1); Chloride 105 mmol/L (98-107); Creatinine, Serum 0.85 mg/dL (0.55-1.02); EST Glomerular Filtration Rate 69 mL/min (>60); Est Glom Filt Rate - Afr Amer 83 mL/min (>60); Estimated Creatinine Clearance 50.85 ml/min; Globulin 3.5 g/dL (2.2-4.2); Glucose 119 mg/dL (74-106); Potassium 3.4 mmol/L (3.5-5.1); Protein, Total 6.9 g/dL (6.4-8.2); Sodium Level 138 mmol/L (136-145)
[2024-10-18 10:01] VITALS: BMI 34.2
--- NOTE | 2024-10-18 10:01 | NURSING ---
Report called to Inpatient Rehab nurse. IV left in place per rehab nurse.
--- NOTE | 2024-10-18 10:15 | CASEMGMT ---
Social Work SW spoke w/pt and daughter in room, let daughter know pt is accepted into rehab, has been discharged and will go over today. SW educated daughter on rehab and SNF benefits under Medicare. No further needs, pt to rehab today, SW let RN know pt can go whenever she is ready. MELIDA Cat
[2024-10-18 13:45] VITALS: BP 182/66; PULSE 103; RESP 16; O2SAT 94
[2024-10-18 14:12] VITALS: BP 180/83; PULSE 99; RESP 17; TEMP 36.7; O2SAT 97
[2024-10-18 14:20] VITALS: BMI 34.2
--- NOTE | 2024-10-18 15:05 | NURSING ---
Report called to Misty at [facility] ED, awaiting return phone call from [facility] for transport.
--- NOTE | 2024-10-18 15:11 | PCM.DC.SUM ---
Providers Date of Admission: 10/16/24 Date of Discharge: 10/18/24 Primary Care Physician: No Primary Care Phys Consultations 10/15/24 22:54 Consult: Tele-Neurology Routine Consulting Provider: [facility] Reason for Consult: Acute Ischemic Stroke/TIA EMERGENT Consult: No MD Notified: Yes Date Notified: 10/15/24 Time Notified: 03:00 Method of Notification: Answering Service Method of Consult:: Telemedicine Nursing Unit Staff Notify [facility] of Tele-Neurology Consult: Yes 10/18/24 [facility] STROKE ALERT CONSULTATION FOLLOWING IN-HOUSE STROKE ALERT AT 1:25 PM. Reason For Visit: TIA VS CVA Diagnosis Discharge Diagnosis (1) Facial droop: Status: Acute Code(s): R29.810 - Facial weakness Plan: DISCHARGE DIAGNOSES: #1. 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 Incidentally noted thyroid nodule, mixed solid and cystic mass #3. Hypokalemia #4. Hyperglycemia, stress response, HgbA1c 5.5% #5. Elevated BP without hypertensive diagnosis, Hypertensive Emergency given #1, New diagnosis Hypertension at discharge #6. Suspected Chronic Kidney Disease Stage II versus stage III per GFR trending, uncertain as no past comparison #7. Obesity Medications at Discharge Home Medications aspirin 81 mg chewable tablet 81 mg PO DAILYCM Stroke 30 days #30 tabs 10/17/24 atorvastatin 40 mg tablet 40 mg PO QHS HLD, stroke 30 days #30 tabs 10/17/24 clopidogrel 75 mg tablet 75 mg PO DAILY Stroke 30 days #30 tabs 10/17/24 amlodipine 5 mg tablet 5 mg PO DAILY BP 30 days #30 tabs 10/18/24 enoxaparin 40 mg/0.4 mL subcutaneous syringe (Lovenox) 40 mg subcut DAILY Blood thinn 10/18/24 lisinopril 20 mg tablet 20 mg PO DAILY BP #30 tabs 10/18/24 Hospital Course Operations None Procedures 2-D Echocardiogram and EKG Summary of Care Provided Minutes Spent on Discharge: 35 Hospital Course: The patient is a 79 y/o F w/ PMHx: Obesity avoiding medical care and evaluation for many years with likely underlying co-morbidities that have gone undiagnosed who presented to the [facility] ED on 10/15/24 with onset of left-sided facial droop, left upper extremity weakness as well as dysarthric speech and confusion with symptoms beginning approximately 1 week prior to current presentation describing as brain fog prompt eventual ED evaluation. 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 artery due to small vessel plaques and small vessel plaques without significant stenosis along the right anterior pericallosal artery and both posterior cerebral arteries, no large vessel occlusion or medial vessel occlusion of the anterior or posterior intracranial circulation, normal bilateral cervical carotid arteries and vertebral arteries, normal aortic arch and origins of the great vessels, 3.3 x 2.9 x 4.3 cm left nodule noted to be mixed solid and cystic mass continue judicious hydration given unclear exact kidney function although suspect likely chronic component, MRI of the brain with early subacute ischemic infarct in the right insular lobe and multiple scattered nodular microembolic ischemic infarcts along the right chauhan radiata, right posterior periventricular white matter and cortical gyri of the right parietal lobe and right temporal operculum, ECHO with normal LV size, LV systolic function normal, EF 75%, bubble contrast study negative, PT/OT/Speech/Nutrition evaluation per protocol. Will maintain on asa, added statin w/ AM FLP obtained, fall precautions. Mag 2.0, TSH 1.360, FLP obtained w/ TChol 212/LDL 130/VLDL 10/HDL72, HgbA1c 5.5%. Initially maintained permissive HTN however given timeline and discussion with neurology 10/17/2024 initiated on low-dose lisinopril/hydrochlorothiazide regimen, will continue to monitor and adjust/add regimen as needed. Upon discharge patient will require continued aspirin and Plavix for 90 days with then transition to baby aspirin only following as well as early follow-up with neurology. Initially plan had been to follow-up with [facility] including clinic however family change their mind and requested patient follow-up with [facility] services Dr. Baltazar as well as neurologist Dr. Moy. 10/18/2024 patient and family requested consideration for rehab with referral made and patient was accepted. 10/18/[address] Duran requested patient be transitioned off of hydrochlorothiazide and continued only on Norvasc and lisinopril with plan for her to continue monitor blood pressures and make further adjustments as needed. Patient discharged to acute rehab for ongoing physical, occupational and speech therapy with continue medication with adjustments as needed as noted with with once discharge from rehab plan to follow-up with new primary care physician and neurology as noted. Patient was discharged to rehab and was initiated on therapies however unfortunately at 1:20 PM with last known normal at 1:10 PM patient with significant new onset deficits with left-sided upper and lower extremity flaccidity, lack of sensation, right lateral gaze with worsened appearance of left facial droop as patient could not correct which she had been able to previously do to some degree in addition to evidence of left-sided hemianopsia. Stroke alert was initiated. Blood sugar was checked and was appropriate, vital signs at that time with BP 161/85, heart rate 102, temperature 98.8. Patient was taken for emergent CT and CTA head and neck. 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 Given these findings patient transition to inpatient and immediately neurology again reviewed imaging as final read had been done following the recent evaluation following CT scans and requested patient be transferred via flight to [facility] ED with accepting physician ED physician Dr. Thayer with plan transition from ED 2 OR with neurosurgery. Family as well as rehab physician Dr. Duran was updated about these events and plan of care. Did relay to [facility] that acute rehab physician Dr. Duran would be amenable to taking patient back when she was clinically appropriate following her [facility] evaluation and treatment. Patient discharged to flight team for transport to [facility] ED. Weight / BMI Weight Weight: 175 lb Body Mass Index (BMI) 34.2 ABG / Lab / Microbiology Data 10/18/24 07:29 10/18/24 07:29 Laboratory: Laboratory Results - last 24 hr 10/18/24 07:29: WBC 9.5, RBC 5.58 H, Hgb 16.8 H, Hct 50.2 H, MCV 90.0, MCH 30.1, MCHC 33.5, RDW Std Deviation 42.7, RDW Coeff of Tam 13.0, Plt Count 177, MPV 10.4, Immature Gran % (Auto) 0.300, Neut % (Auto) 66.3, Lymph % (Auto) 19.8, [place] % (Auto) 10.8 H, Eos % (Auto) 2.4, Baso % (Auto) 0.4, Absolute Neuts (auto) 6.3, Absolute Lymphs (auto) 1.87, Nucleated RBC % 0, Sodium 138, Potassium 3.4 L, Chloride 105, Carbon Dioxide 26.0, Anion Gap 8, BUN 16, Creatinine 0.85, Estim Creat Clear Calc 50.85, Est GFR (MDRD) Af Amer 83, Est GFR (MDRD) Non-Af 69, BUN/Creatinine Ratio 18.8, Glucose 119 H, Calcium 9.4, Total Bilirubin 0.90, AST 13 L, ALT 16, Alkaline Phosphatase 97, Total Protein 6.9, Albumin 3.4, Globulin 3.5, Albumin/Globulin Ratio 1.0 Radiography Diagnostic Testing: Radiology Impression Carotid Duplex 10/15/24 21:54 Interpretation Summary Normal right extracranial internal carotid. Normal left extracranial internal carotid. Patent and antegrade vertebrals bilaterally. Ordering Physician: Curly Sadler Performed By: Nathalia Cruz RVT and Student D/C Instructions Discharge Diet: Low fat / Low cholesterol May resume sexual activity in: 10-14 days Call your doctor if you observe: Fever of 101 or Higher, Inability to urinate, Shortness of breath, Dizziness, Swelling in the ankles, Chest pain, Increased palpitations (irregular heartbeat), Calf discomfort and Uncontrolled pain DC O2, CPAP, BIPAP Needs Home O2 Discharge instructions: No Meaningful Use Info Meaningful Use Meaningful Use Diagnoses (Choose all that apply): Ischemic CVA CVA Therapy Assessed for PT,OT and/or ST?: Yes Ischemic Stroke Antithrombotic order at d/c?: Yes Dx of Atrial fib/flutter?: No Anticoagulant at discharge?: No Reason anticoagulant not ordered: Treatment not Indicated Statin Dosing Therapy Reference: STATIN DOSE THERAPY REFERENCE: * Patients > 75 years receive moderate or high dose statin therapy. * Patients 75 years or YOUNGER should receive HIGH intensity statin dose unless contraindicated. You will be required to document reason for non-treatment if statin daily dose does not meet guidelines. HIGH DOSE STATIN THERAPY DAILY Atorvastatin > than or = to 40 mg Rosuvastatin > than or = to 20 mg Amlodipine + Atorvastatin > than or = to 2.5/40 mg Ezetimibe + Simvastatin 10/80 mg Simvastatin 80mg Statins at discharge?: Yes Primary Dx Acute Ischemic CVA?: Yes IV thrombolytic ordered during stay?: No Discharge Plan Admission Admit Date/Time: 10/16/24 14:34 Primary Reason for Your Visit: Acute CVA w/ eventual LVO noted, HTN, Thyroid nodule Attending Provider: Ivis Perez Primary Care Provider: Care Physician,No Primary Consulting Providers: Curly Sadler; Tu Banks; Caryn Correia; Lourdes García; Amarilis Carlos; Kimber Christian; Ace Arora; Anahi Rodriguez; Tamir Wilson; Evgeny Crook; Geovanny Ladd; Romana West; Bret Garcia; Maryam Worthington; Patricia Beltre; Ed Anders; Antione Ivey; Migdalia Davis; Nithin Tucker; Isis Perez; Shahram,Haven Instructions Patient Instructions: Stroke: Taking Medicines, Stroke Self Care After, Stroke Prevention Eating Healthy Additional Instructions / Restrictions: ADDITIONAL DISCHARGE INSTRUCTIONS/PLAN OF CARE: --MRI of the brain with early subacute ischemic infarct in the right insular lobe and multiple scattered nodular microembolic ischemic infarcts along the right chauhan radiata, right posterior periventricular white matter and cortical gyri of the right parietal lobe and right temporal operculum as well as chronic periventricular white matter ischemic changes in both cerebral hemispheres. 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 --Echocardiogram with normal LV size, LV systolic function normal, EF 70%, bubble contrast study negative for PFO/ASD. --Inpatient you were administered an aspirin and plavix loading dose with then transition to baby aspirin and plavix 75 mg daily. This dual treatment should be continued for 90 days with then transition to aspirin only. --Continue newly started moderate dose statin therapy with the goal for your cholesterol and LDL less than 70. --Continue physical, occupational and speech therapy. --Continue newly initiated hypertensive medication with goal currently less than 160 but above 120 systolic blood pressure however, this may need to be further adjusted outpatient with preference to avoid hypotension but eventually preference for less than 130/80 millimeter mercury. --Weight loss and lifestyle changes are important with an ideal body mass index between 19 and 25. --Also strongly recommend no more than 5-7 alcoholic beverages per week with maximum 1 drink daily. --Please continue to follow with primary care as well as neurology as recommended. --On CTA head and neck you had an incidentally noted 3.3 x 2.9 x 4.3 cm left thyroid nodule of mixed solid and cystic mass type with normal thyroid function. Discussed with your new primary care and this will need to be followed up with an ultrasound of the thyroid in an outpatient setting. FOLLOWING REPEAT STROKE ALERT EVALUATION 10/18/24: --Repeat imaging included: --CTA head and neck with positive evidence of large vessel occlusion right middle cerebral artery with no carotid stenosis, mild amount of plaque in the left carotid bifurcation without measurable stenosis, patent vertebral arteries bilaterally, right vertebral artery somewhat hypoplastic, dominant nodule in the left lobe of thyroid gland with recommended follow-up ultrasound. --CT head with chronic involutional changes. -- Given these new findings decision to defer rehab therapy and immediate emergent flight transferred to [facility] ED for neurology and neurosurgery evaluation initiated and completed. Discharge Orders/Prescriptions Prescriptions: New aspirin 81 mg Tablet,Chewable 81 mg PO DAILYCM 30 Days Qty: 30 0RF atorvastatin 40 mg Tablet 40 mg PO QHS 30 Days Qty: 30 0RF clopidogrel 75 mg Tablet 75 mg PO DAILY 30 Days Qty: 30 0RF amlodipine 5 mg Tablet 5 mg PO DAILY 30 Days Qty: 30 0RF lisinopril 20 mg tablet 20 mg PO DAILY Qty: 30 0RF No Action enoxaparin [Lovenox] 40 mg/0.4 mL syringe 40 mg subcut DAILY Referrals / Follow Up: Fransisco Baltazar MD [Med Staff - Active Staff] - (Please establish and follow-up with Dr. Baltazar within ideally 1-2 days of discharge from Acute Rehab.) Geremias Moy MD [Non-Staff] - (Please follow-up with Neurology, may see other physicians with earlier availability in the office at first open visit. She is s/p recent CVA. May see INSTRUMENTATION AND CONTROL TECHNICIAN/PA.) Disposition Disposition (needs filled in before D/C Order can be placed): Acute Care Hospital Charges/Coding Visit Charges Inpatient E&M: 41099 Disch Hosp >30min
[2024-10-18 15:21] VITALS: BP 167/82; PULSE 106; RESP 18; O2SAT 95
--- NOTE | 2024-10-18 15:26 | NS ---
Addendum to nutrition assessment note dates 10/18/24 at 13:47 Pt transferred from [facility] from to PCU d/t stroke alert. Continue cardiac diet. Reviewed and approved by Rosa Ferrell MS, RDN, LD. - note from 10/18/24 13:47 was also approved.
--- NOTE | 2024-10-18 15:38 | NURSING ---
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
== END 2024-10-18 15:37 | disposition short-term general hospital (02) | DRG 65 ==
LOC: ED 21:55 → PCU 22:02
PROVIDERS: Admitting Provider Internal Medicine; Emergency Provider Surgery; Visit Provider Family Medicine
DX: I63.89 Other cerebral infarction (principal); I16.1 Hypertensive emergency; I63.522 Cerebral infarction due to unspecified occlusion or stenosis of left anterior cerebral artery; I63.511 Cerebral infarction due to unspecified occlusion or stenosis of right middle cerebral artery; N18.31 Chronic kidney disease, stage 3a; G83.24 Monoplegia of upper limb affecting left nondominant side; E04.1 Nontoxic single thyroid nodule; E66.811 Obesity, class 1; I12.9 Hypertensive chronic kidney disease with stage 1 through stage 4 chronic kidney disease, or unspecified chronic kidney disease; E87.6 Hypokalemia; G83.14 Monoplegia of lower limb affecting left nondominant side; R29.706 NIHSS score 6; R47.1 Dysarthria and anarthria; R29.810 Facial weakness; R73.9 Hyperglycemia, unspecified; Z68.34 Body mass index [BMI] 34.0-34.9, adult
CPT/HCPCS: 36415; 70450; 70496; 70498; 70551; 71045; 80048; 80053; 80061; 82077; 82607; 82746; 83036; 83735; 84443; 84484; 85025; 85610; 85730; 90662; 92610; 93005; 93306; 93880; 94762; 97110; 97116; 97162; 97166; 97530; 97535; 97802; 99285; Q9967; A4216

== ENCOUNTER 2024-10-18 10:40 | Inpatient (IN) | payer MEDICARE, OTHER, SELFPAY ==
[2024-10-18 10:56] VITALS: BP 124/70; BP 136/69; BP 139/77; BP 140/68; PULSE 102; PULSE 107; PULSE 115; PULSE 90; RESP 16; TEMP 36.8; O2SAT 93; BMI 33.1
[2024-10-18 11:44] VITALS: O2SAT 94
--- NOTE | 2024-10-18 13:34 | CT_ITS ---
We are attempting to reach an attending provider to discuss findings. An addendum with communication details will be sent when the communication is complete. STUDY: CT BRAIN WITHOUT CONTRAST REASON FOR EXAM: Female, 79 years old. CVA RADIATION DOSAGE (If Supplied By Facility): CTDIvol = ( ) mGy, DLP = ( ) mGycm TECHNIQUE: Transaxial CT imaging of the brain was performed without administration of intravenous contrast material. Individualized dose optimization techniques were used for this CT. COMPARISON: 10/15/2024 FINDINGS: Normal soft tissue structures. Normal calvarium. There is mild cerebral atrophy with widening of the extra-axial spaces and ventricular dilatation. There are areas of decreased attenuation within the white matter tracts of the supratentorial brain, consistent with microvascular disease changes. Normal basal ganglia and thalami. Normal brainstem. Normal cerebellum. There is no intracranial hemorrhage. There are no findings of an acute ischemic infarction. Normal visualized paranasal sinuses. CT/STROKE Brain/Head without Cont IMPRESSION: Chronic involutional changes of the brain. Electronically Signed: Gurpreet Iyer MD at 13:51 EST ,
--- NOTE | 2024-10-18 13:38 | CT_ITS ---
We are attempting to reach an attending provider to discuss findings. An addendum with communication details will be sent when the communication is complete. STUDY: CTA HEAD AND NECK WITH CONTRAST REASON FOR EXAM: Female, 79 years old. CVA RADIATION DOSAGE (If Supplied By Facility): CTDIvol = ( 19.30 ) mGy, DLP = ( 733.75 ) mGycm TECHNIQUE: CT angiography was performed with a multi-detector CT scanner. Data acquisition was obtained from the skull base through the vertex following intravenous administration of IV 100mL [id number]-[id number]. MIP images were reconstructed from the axial data set. Post-processing of the angiographic images was performed, with multiplanar reformation and 3D reconstruction. Individualized dose optimization techniques were used for this CT. COMPARISON: 10/16/2024 FINDINGS: Normal bilateral petrous carotid arteries. Normal right cavernous carotid artery with a normal supraclinoid bifurcation. Normal left cavernous carotid artery with a normal supraclinoid bifurcation. Normal right A1 segments of the anterior cerebral artery. Normal left A1 segments of the anterior cerebral artery. Normal intact anterior communicating artery (ACOM). Normal bilateral A2 segments of the anterior cerebral arteries. Abrupt occlusion of the distal aspect of the M1 segment with a moderate right middle cerebral artery consistent with large vessel occlusion. Normal left M1 and M2 segments of the middle cerebral arteries, with a normal M1 bifurcation. Normal right posterior communicating artery (PCOM). Normal left posterior communicating artery (PCOM). Normal bilateral vertebral arteries. Normal basilar artery with a normal basilar bifurcation. The visualized bilateral superior cerebellar (SCA) arteries are normal. Normal bilateral P1, P2 and visualized P3 segments of the posterior cerebral arteries. There is no demonstrated aneurysm of the [place] of [place]. There is no demonstrated abnormality of the visualized brain. AORTIC ARCH: Normal visualized aortic arch. Normal origins of the brachiocephalic, left common carotid, and left subclavian arteries. RIGHT CAROTID ARTERIES: Normal right common carotid artery (CCA). Normal right common carotid bulb. Normal origin of the right internal carotid (ICA) artery without a hemodynamically significant stenosis. Normal visualized cervical portion of the right internal carotid artery. Normal origin of the right external carotid artery (ECA). LEFT CAROTID ARTERIES: Normal left common carotid artery (CCA). There is mild atherosclerotic plaque formation with minimal narrowing of the left carotid bulb. Normal origin of the left internal carotid (ICA) artery without a hemodynamically significant stenosis. Normal visualized cervical portion of the left internal carotid artery. Normal origin of the left external carotid artery (ECA). VERTEBRAL ARTERIES: There is enhancement within the bilateral vertebral arteries with a small right vertebral artery, and a dominant left vertebral artery. 3.5 cm nodule in the left lobe of the thyroid gland follow-up thyroid ultrasound is recommended. 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 No right carotid stenosis. Mild amount of plaque in the left carotid bifurcation without measurable stenosis. Patent vertebral arteries bilaterally. The right vertebral artery is somewhat hypoplastic. Dominant nodule in left lobe of the thyroid gland a follow-up thyroid ultrasound is recommended. Electronically Signed: Gurpreet Iyer MD at 14:09 EST ,
[2024-10-18 13:40] VITALS: BP 161/85; PULSE 94; RESP 16; TEMP 36.9; O2SAT 95
[2024-10-18 13:48] LABS: Bedside Glucose 116 mg/dL (74-106)
--- NOTE | 2024-10-18 13:48 | PCM.PN.BLA ---
Progress Note STROKE ALERT DOCUMENTATION: Patient was discharged to rehab and was initiated on therapies however unfortunately at 1:20 PM with last known normal at 1:10 PM patient with significant new onset deficits with left-sided upper and lower extremity flaccidity, lack of sensation, right lateral gaze with worsened appearance of left facial droop as patient could not correct which she had been able to previously do to some degree in addition to evidence of left-sided hemianopsia. Stroke alert was initiated. Blood sugar was checked and was appropriate, vital signs at that time with BP 161/85, heart rate 102, temperature 98.8. Patient was taken for emergent CT and CTA head and neck. Repeat NIHSS evaluation following CT with 1 Best gaze, 1 Best visual, 3 facial droop, 2 left upper extremity weakness, 2 sensation totaling 9. Even while in the bay following CT imaging NIH stroke scale improved and patient was able to move left upper extremity with greater ease but sensation remained absent left side with evidence also of left-sided hemianopsia persistently and intermittent right lateral constant gaze but would be able to be distracted from this. 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 Given these findings patient transition to inpatient and immediately neurology again reviewed imaging as final read had been done following the recent evaluation following CT scans and requested patient be transferred via flight to [facility] ED with accepting physician ED physician Dr. Thayer with plan transition from ED 2 OR with neurosurgery. Family as well as rehab physician Dr. Duran was updated about these events and plan of care. Did relay to [facility] that acute rehab physician Dr. Duran would be amenable to taking patient back when she was clinically appropriate following her [facility] evaluation and treatment. Patient discharged to flight team for transport to [facility] ED.
== END 2024-10-18 14:07 | disposition short-term general hospital (02) | DRG 57 ==
PROVIDERS: Admitting Provider Internal Medicine; Referring Provider Internal Medicine; Visit Provider Internal Medicine
DX: I69.354 Hemiplegia and hemiparesis following cerebral infarction affecting left non-dominant side (principal); H53.47 Heteronymous bilateral field defects; I69.392 Facial weakness following cerebral infarction; E04.1 Nontoxic single thyroid nodule
CPT/HCPCS: 70450; 70496; 70498; 82962; 97162; 97802; Q9967; A4216

== ENCOUNTER 2024-10-21 18:08 | Inpatient (IN) | payer MEDICARE, OTHER, SELFPAY ==
[2024-10-21 18:44] VITALS: BP 154/65; PULSE 98; RESP 16; TEMP 36.8; O2SAT 98; BMI 33.0
[2024-10-21] MEDS: Atorvastatin Calcium 40 MG Tablet PO (22:37)
[2024-10-21] MEDS: Senna/Docusate Sodium 1 Tablet 2 TABLET PO (22:37)
[2024-10-22 05:52] LABS: Absolute Lymphocyte Count 1.77 X10^3/uL (0.83-4.51); Absolute Neutrophil Count 9.3 X10^3/uL (2.0-7.7); Basophil# 0.04 X10^3/uL; Basophil% 0.3 % (0-1); Eosinophil# 0.22 X10^3/uL; Eosinophils% 1.7 % (0-5); Hematocrit 48.1 % (37-47); Hemoglobin 15.9 g/dL (12.0-15.0); Lymphocyte # 1.77 X10^3/ul (0.83-4.51); Lymphocyte % 13.9 % (19-41); Mean Corp Hgb Conc 33.1 g/dL (32-36); Mean Corpuscular Hgb 30.1 pg (27.0-32.0); Mean Corpuscular Volume 90.9 fL (81-99); Mean Platelet Vol. 10.7 fl (6.2-12.0); Monocyte# 1.32 X10^3/uL; Monocyte% 10.4 % (0-10); NRBC Flagged by Analyzer 0 % (0-5); Neutrophil # 9.28 X10^3/uL (2.7-7.7); Neutrophil % 73.2 % (47-70); Platelet Count 202 K/mm3 (150-450); RBC Distribution Width CV 12.9 % (11.6-14.6); Red Blood Count 5.29 M/mm3 (4.2-5.4); White Blood Count 12.7 K/mm3 (4.4-11.0)
[2024-10-22 06:00] VITALS: BP 135/74; PULSE 96; RESP 16; TEMP 36.9; O2SAT 93
[2024-10-22 06:16] LABS: ALB/GLOB Ratio 0.9 RATIO (0.9-2.4); AST(SGOT) 22 U/L (15-37); Alanine Aminotransfer ALT/SGPT 20 U/L (13-56); Albumin, Serum 2.9 g/dL (3.2-5.0); Alkaline Phosphatase 89 U/L (45-117); Anion Gap 8 (5-15); BUN 27 mg/dL (7-18); BUN/Creat Ratio 28.9 RATIO (10-20); Calcium,Total 8.8 mg/dL (8.5-10.1); Chloride 104 mmol/L (98-107); Creatinine, Serum 0.93 mg/dL (0.55-1.02); EST Glomerular Filtration Rate 62 mL/min (>60); Est Glom Filt Rate - Afr Amer 75 mL/min (>60); Estimated Creatinine Clearance 44.94 ml/min; Globulin 3.4 g/dL (2.2-4.2); Glucose 98 mg/dL (74-106); Magnesium 2.1 mg/dL (1.6-2.6); Phosphorus 3.5 mg/dL (2.5-4.9); Potassium 3.5 mmol/L (3.5-5.1); Protein, Total 6.3 g/dL (6.4-8.2); Sodium Level 138 mmol/L (136-145)
[2024-10-22] MEDS: Lisinopril 10 MG Tablet PO (09:10)
[2024-10-22] MEDS: Clopidogrel Bisulfate 75 MG Tablet PO (09:11)
[2024-10-22] MEDS: Aspirin 81 MG TAB.CHEW PO (09:11)
[2024-10-22] MEDS: Senna/Docusate Sodium 1 Tablet 2 TABLET PO (09:11)
[2024-10-22] MEDS: Menthol/Lanolin/Calamine/Znox 113 GM Tube 1 APPLIC TOPICAL ×2 (09:11→20:24)
[2024-10-22 11:25] LABS: Mucous, Urine 0 SEEN /hpf (<or=2+); Red Blood Cells-Urine 0 SEEN /hpf (0-5); Squamous Epithelial Cells - UA 0 SEEN /hpf (5-10)
[2024-10-22 11:27] LABS: Color, Urine Yellow (Yellow); Glucose, Dipstick Normal (Normal); Ketone-Dipstick Negative (Negative); Leukocyte Esterase-Dipstick 500 /ul (Negative); Nitrite-Dipstick Negative (Negative); Occult Blood-Urine 250 /ul (Negative); Protein-Dipstick 30 mg/dl (Negative); Specific Gravity, Urine 1.015 (1.002-1.030); Urine Bilirubin Dipstick Negative (Negative); Urine Clarity Sl. Cloudy (Clear); Urine Urobilinogen Normal (Normal)
--- NOTE | 2024-10-22 11:30 | EX.PCM.HP.RE ---
[facility] - General General Date of Admission: 10/21/24 HPI Narrative DEREK ALEJANDRE, is a 79 YO F with no significant past medical history on no prescribed medications who presented to the emergency department at [facility] on 10/15/2024 complaining of left facial droop, slurred speech, left arm weakness and altered thought processes. Symptoms had started approximately 1 week prior to presenting to the emergency room and had been stuttering. Family had noticed left facial droop and abnormal speech 1 day prior to presentation to the emergency room but once again she did not come to the hospital. Her daughter saw the patient on 10/15/2024 and brought her mother to the emergency department for further evaluation. A noncontrast CT brain showed no acute disease. There was no evidence of prior stroke. CTA of the head and neck showed segmental high-grade stenosis along the left anterior pericallosal artery due to small vessel plaques. There were also small vessel plaques without significant stenosis along the right anterior pericallosal artery and both posterior cerebral arteries. There was no large vessel occlusion. There were normal bilateral cervical carotid arteries and vertebral arteries. An incidental finding was a 3.3 x 2.9 x 4.3 cm left thyroid nodule with mixed solid/cystic consistency. She was admitted to the hospitalist service. Consult was obtained with neurology on 10/16/2024. Dual antiplatelet agents with 600 mg loading dose of Plavix was recommended. 40 mg of atorvastatin was also recommended. Transthoracic echocardiogram showed a left ventricular ejection fraction of 70% with no regional wall motion abnormalities. The right ventricle was normal in size and function. There was no atrial enlargement. The bubble contrast study was negative for PFO/ASD. There was no significant valvular heart disease. She was transferred to the acute rehab unit at [facility] on 10/18/2024 for 3 hours of therapy daily to restore function/independence at or near her level prior to stroke. Shortly after arrival on rehab her eyes deviated to the right and she had a flaccid left side. She was much less responsive than she had been. A stroke alert was called and she was taken for a stat CT brain. There were no acute changes and specifically no hemorrhagic transformation on the CT scan. CTA was obtained and showed large vessel occlusion of the right middle cerebral artery and no right carotid stenosis. There was a mild amount of plaque in the left carotid bifurcation without measurable stenosis. Vertebral arteries were patent bilaterally. [facility] teleneurology was consulted and recommended transfer to [facility] for large vessel occlusion. [facility] felt that the right M1 occlusion was chronic. Because of the thrombectomy was not recommended. Dual antiplatelet agents were prescribed along with atorvastatin 40 mg daily. They recommended allowing permissive hypertension for the following week and then adjusting antihypertensives as indicated to keep the blood pressure less than 130/80. She was transferred to the acute inpatient rehab unit at [facility] on 10/21/2024 for 3 hours of therapy daily to restore function/independence at or near her level prior to the recent strokes. Derek lives alone but her son lives very close by. Her son drives her to all her appointments. She was independent with all ADLs prior to the recent events. She stopped blood pressure is mildly elevated diastolic is less than 80. Heart rate today is within normal limits. She is retaining urine and had to be straight cathed for 1000 cc. The urine appeared cloudy and has been sent for a UA. She is incontinent of stool. All lab done this morning was personally reviewed. The white blood cell count is 12.7 with 73% neutrophils. Hemoglobin is normal at 15.9 which is actually a little high and I suspect this is due to intravascular volume depletion. Platelets are within normal limits. Sodium is 138 potassium is 3.5 today. BUN is 27 with a creatinine of 0.93 and a BUN/creatinine ratio of 28.9. Creatinine clearance is 44.94. Hemoglobin A1c on 10/15/2024 was 5.5. Triglycerides are 51 and the total cholesterol is 212 with an LDL of 130 and an HDL of 72. B12 is within normal limits. Folate is normal. [facility] Medical History (Updated 10/22/24 @ 13:[address] Elisa Duran, DO) Acute right arterial ischemic stroke, MCA (middle cerebral artery) Obesity (BMI 30.0-34.9) Home Medications ?Medication ?Instructions ?Recorded ?Last Taken ?Type aspirin 81 mg chewable tablet 81 mg PO DAILYCM Stroke 30 days 10/17/24 10/21/24 Rx #30 tabs atorvastatin 40 mg tablet 40 mg PO QHS HLD, stroke 30 days 10/17/24 10/20/24 Rx #30 tabs clopidogrel 75 mg tablet 75 mg PO DAILY Stroke 30 days #30 12/26/24 12/30/24 Rx tabs lisinopril 20 mg tablet 10 mg PO DAILY BP 10/21/24 10/21/24 History Allergy/AdvReac Type Severity Reaction Status Date / Time No Known Allergies Allergy Verified 10/15/24 19:54 Family History no significant family his no significant family history Surgical History no surgical history no surgical history Social History (Updated 10/22/24 @ 12:[address] Elisa Duran, DO) household members: none and other details: Son lives in a house right behind her and provides assistance when needed. housing: house number of children: 2 pets and animals: Yes pets and animals: dog(s) Smoking Status: Never smoker alcohol intake: never substance use type: does not use Homelessness:: Sheltered ROS Constitutional Constitutional: Reports anorexia and weakness; Denies change in weight, chills, fatigue, fever(s), headache(s) or night sweats Eyes Eyes: Reports change in vision; Denies blurry vision, eye pain or loss of vision ENT HEENT: Denies abnormal hearing, dysphagia, headache(s), hearing loss, nasal congestion, neck pain or sore throat Cardiovascular Cardiovascular: Denies chest pain, dyspnea on exertion, edema, lightheadedness, orthopnea, palpitations, paroxysmal nocturnal dyspnea or syncope Respiratory/Chest Respiratory/Chest: Denies cough, dyspnea, shortness of breath at rest, shortness of breath with exertion or wheezing Gastrointestinal Gastrointestinal: Reports fecal incontinence and other Details: Decreased appetite ; Denies abdominal pain, constipation, diarrhea, dyspepsia, hematemesis, hematochezia, nausea or vomiting Genitourinary Genitourinary: Reports other Details: Urine retention ; Denies dysuria, hematuria, nocturia, urinary frequency, urinary hesitancy, urinary incontinence or urinary urgency Musculoskeletal Musculoskeletal: Denies back pain, joint pain, joint swelling or neck pain Neurologic Neurologic: Reports focal weakness, loss of vision, paresthesias and sensory deficit; Denies confusion, disequilibrium, dizziness, headache(s), radicular pain, seizures, tremor(s) or vertigo Psychiatric Psychiatric: Reports abnormal sleep pattern, change in appetite, depression and difficulty concentrating; Denies anxiety, behavioral changes, hallucinations, homicidal ideation, suicidal ideation or suicidal thoughts Endocrine Endocrinology: Denies change in body appearance, polydipsia or polyuria Hematologic/Lymphatic Hematologic/Lymphatic: Denies easy bleeding, easy bruising or lymphadenopathy Allergic/Immunologic Allergic/Immunologic: Denies rhinitis, eczemia or asthma Vital Signs Vital Signs Vital Signs: 10/21/24 18:44 10/21/24 22:00 10/22/24 06:00 Temperature 98.2 F 98.5 F Temperature Source Temporal Temporal Pulse Rate 98 96 Pulse Strength Respiratory Rate 16 16 Respiratory Effort Normal Respiratory Depth Normal Respiratory Pattern Normal Blood Pressure 154/65 H 135/74 H Blood Pressure Mean 94 94 Blood Pressure Source Monitor Monitor Blood Pressure Position Semi-Fowlers Semi-Fowlers Blood Pressure Location Right Arm Right Arm Pulse Ox 98 93 Oxygen Delivery Method Room Air Room Air Room Air 10/22/24 10:00 Temperature Temperature Source Pulse Rate Pulse Strength Normal (2+) Respiratory Rate Respiratory Effort Respiratory Depth Respiratory Pattern Blood Pressure Blood Pressure Mean Blood Pressure Source Blood Pressure Position Blood Pressure Location Pulse Ox Oxygen Delivery Method Weight Weight: 164 lb 3.91 oz Body Mass Index (BMI) 33.0 Indicators for Scoring Admitted with or Primary Diagnosis of CVA/Stroke: Yes Hx of CVA/Stroke: Yes Modified [place] Score MRS Score at time of Evaluation: 4-Moderate/severe disability NIHSS NIHSS 1a. Level of Consciousness: Alert; keenly responsive 1b. LOC Questions: Answers BOTH questions correctly. 1c. LOC Commands: Performs both tasks correctly. 2. Best Gaze: Partial gaze palsy; (eyes do not track the whole way to the lateral canthus on the L eye) 3. Visual: Partial hemianopia (inferior quadrants on left sides of the eyes) 4. Facial Palsy: Partial paralysis (total or near-total paralysis of lower face) 5a. Left Arm: No effort against gravity; arm falls 5b. Right Arm: No drift; arm holds 90 (or 45) degrees for full 10 seconds 6a. Left Leg: Some effort against gravity; 6b. Right Leg: No drift; leg holds 30-degree position for full 5 seconds 7. Limb Ataxia: Present in 1 limb (Left lower extremity. Cannot test the left upper extremity because she has no movement.) 8. Sensory: Severe to total sensory loss; (Left leg and left arm. She does have some sensation in the face but the pinprick is dull on the left.) 9. Best Language: No aphasia; normal 10. Dysarthria: [id number] dysarthria; 11. Extinction and Inattention: Profound shirley-inattention or extinction to more than one modality; Total: 15 Stroke Questions Stroke Team Activated: No Physical Exam Const alert, oriented x3 and no apparent distress Constitutional Narrative: Very motivated to get better. General Appearance: cooperative HEENT head/scalp atraumatic, hearing grossly normal bilaterally and external ears normal HEENT Narrative: Mucous membranes are very dry Eyes PERRL, conjunctivae normal and no scleral icterus Eyes Narrative: No discharge from the eyes. The left eye does not track completely to the lateral canthus. Neck supple, No no JVD and no carotid bruits General: trachea midline Chest Chest: symmetrical chest wall rise Resp normal respiratory effort, normal air movement and clear to auscultation bilaterally Resp Narrative: Mildly diminished in the bases, trying hard but not the best respiratory effort. Effort and Inspection: able to speak in complete sentences Cardio regular rate, regular rhythm, S1 normal heart sound, S2 normal heart sound, no murmurs, no rub and no gallops Cardio Narrative: No ectopy. Heart monitor is present on the chest wall. GI normal to inspection, nondistended, normoactive bowel sounds, soft to palpation and non-tender GI Narrative: No guarding with palpation. Incontinent of stool. no CVA tenderness and external exam normal Narrative: She is retaining urine. Back/Spine no CVA tenderness Back/Spine Narrative: Denies back pain Extremity no calf tenderness; Negative for no pedal edema Extremity Narrative: No clubbing and no cyanosis. She has a blister on the plantar surface of the right foot. No erythema, no openings in the roof. No pain with palpation. It is callused over the roof of the blister. Neuro oriented x3 Neuro Narrative: Marked left facial droop. Decreased sensation in the left face/dullness to pinprick. Pupils are equal round and reactive to light. Not able to shrug the left shoulder. No movement in the left upper extremity. Strength in the right upper extremity is 5/5 and she has no drift with the right upper extremity. She has no sensation in the left upper extremity with pinprick or pressure. Sensation is normal in the right upper extremity. Right lower extremity has no drift and she has good strength. She is able to hold the left leg approximately 1 inch off the bed for a brief time but it falls to the bed prior to 5 seconds elapsing. She has ataxia with the left lower extremity but not with the right. Cannot test the left upper extremity for ataxia due to paralysis. She has visual extinction and also positive tactile extinction in the left upper extremity and left lower extremity. No tremors. Mild to moderate dysarthria. No nystagmus. Able to read all the words and sentences I showed her. When looking at the pictures she could only tell me what was going on on the right side of the picture. Psych cooperative, denies hallucinations, denies homicidal ideation and denies suicidal ideation Psych Narrative: Makes good eye contact with me. Tells me she is having trouble staying asleep at night and wakes up frequently. She has no trouble falling asleep. She admits to feeling somewhat depressed over her new disability and she also has had poor appetite. She is agreeable to starting Remeron. Results Lab / Micro Data 10/22/24 05:36 10/22/24 05:36 Labs: Laboratory Results - last 24 hr 10/22/24 05:36: WBC 12.7 H, RBC 5.29, Hgb 15.9 H, Hct 48.1 H, MCV 90.9, MCH 30.1, MCHC 33.1, RDW Std Deviation 43.0, RDW Coeff of Tam 12.9, Plt Count 202, MPV 10.7, Immature Gran % (Auto) 0.500, Neut % (Auto) 73.2 H, Lymph % (Auto) 13.9 L, Grainger % (Auto) 10.4 H, Eos % (Auto) 1.7, Baso % (Auto) 0.3, Absolute Neuts (auto) 9.3 H, Absolute Lymphs (auto) 1.77, Nucleated RBC % 0, Sodium 138, Potassium 3.5, Chloride 104, Carbon Dioxide 26.0, Anion Gap 8, BUN 27 H, Creatinine 0.93, Estim Creat Clear Calc 44.94, Est GFR (MDRD) Af Amer 75, Est GFR (MDRD) Non-Af 62, BUN/Creatinine Ratio 28.9 H, Glucose 98, Calcium 8.8, Phosphorus 3.5, Magnesium 2.1, Total Bilirubin 0.80, AST 22, ALT 20, Alkaline Phosphatase 89, Total Protein 6.3 L, Albumin 2.9 L, Globulin 3.4, Albumin/Globulin Ratio 0.9 10/22/24 11:00: Urine Color Yellow, Urine Clarity Sl. Cloudy, Urine pH 6.0, Ur Specific Warren 1.015, Urine Protein 30 H, Urine Glucose (UA) Normal, Urine Ketones Negative, Urine Occult Blood 250 H, Urine Nitrite Negative, Urine Bilirubin Negative, Urine Urobilinogen Normal, Ur Leukocyte Esterase 500 H Assessment & Plan Assessment/Plan (1) Debility: (2) Acute right arterial ischemic stroke, MCA (middle cerebral artery): (3) Left-sided neglect: (4) Partial hemianopia: (5) Facial droop: (6) Left-sided weakness: (7) Urine retention: (8) Fecal incontinence: QUALIFIERS: Fecal incontinence type: full incontinence of feces Qualified Code(s): R15.9 - Full incontinence of feces (9) Hyperglycemia: PLAN: More likely than not secondary to acute CVA. Hemoglobin A1c is normal at 5.5. (10) Hypokalemia: PLAN: Borderline. Would prefer to keep the potassium around 4 due to the potential for atrial fibrillation as etiology of the ischemic stroke with large vessel occlusion. (11) Depression: QUALIFIERS: Depression Type: reactive depression Qualified Code(s): F32.9 - Major depressive disorder, single episode, unspecified (12) Dyslipidemia: (13) Acute cystitis: QUALIFIERS: Hematuria presence: without hematuria Qualified Code(s): N30.00 - Acute cystitis without hematuria PLAN: Present at admission to rehab. (14) Dehydration: (15) Thyroid nodule incidentally noted on imaging study: PLAN: An incidental finding on CTA of the neck. 3.3 x 2.9 x 4.3 cm heterogeneous solid/cystic mass. TSH normal. Will need follow-up as outpatient and likely needs a biopsy. (16) HTN (hypertension): PLAN: Plan PLAN PT for gait stability OT for ADL's ST for evaluation Analgesics as needed Bowel protocol Fall precautions Assess for Anxiety/Depression GI prophylaxis -Protonix 40 mg daily while she is on dual antiplatelet agents. DVT prophylaxis with Lovenox 40 mg subcu daily Follow up with PCP, neurology, cardiology following DC from IP Rehab AM lab including CMP, CBC, Mag and Phos-all personally reviewed along with all other labs done recently at [facility]. Start Remeron 7.5 mg nightly Permissive hypertension for the next 5 to 7 days. Blood pressure is only mildly above goal now but she is dehydrated and it may increase with hydration. She is taking lisinopril 10 mg daily. Will need evaluated for the mixed solid/cystic mass in the thyroid postdischarge from rehab. Patient has acute cystitis that was present at admission to rehab. Will start Rocephin 1 g IV daily and order urine culture. Continue Rocephin until the results of the urine culture are available. Normal saline with 10 mEq of KCl at 80 cc/h x 2 L then discontinue. Encourage increased fluid intake Dietitian consultation to provide supplements since her appetite is poor. Charges/Coding Visit Charges Inpatient E&M: 30014 Init Hosp L3
[2024-10-22 11:32] LABS: White Blood Cells >100 SEEN /hpf (0-5)
[2024-10-22 11:33] LABS: Bacteria 1+ /hpf (None Seen)
[2024-10-22] MEDS: Ceftriaxone 1 GM/50 ML BAG IV (14:33)
[2024-10-22] MEDS: Nystatin Powder 15gm Bottle 1 APPLIC TOPICAL ×2 (14:37→20:24)
[2024-10-22] MEDS: Pantoprazole Sodium 40 MG Tablet PO (14:38)
[2024-10-22] MEDS: NORMAL SALINE 0.9% IV (15:02)
[2024-10-22] MEDS: POTASSIUM CHLORIDE IV (15:02)
[2024-10-22] MEDS: 0.9% Saline Lock 10 ML Syringe IV (15:04)
[2024-10-22] MEDS: Ensure Plus High Protein 120 ML LIQUID PO (17:04)
[2024-10-22 17:30] VITALS: BP 149/81; PULSE 104; RESP 16; TEMP 37.1; O2SAT 98
[2024-10-22] MEDS: Mirtazapine 15 MG Tablet 7.5 MG PO (20:23)
[2024-10-22] MEDS: Atorvastatin Calcium 40 MG Tablet PO (20:24)
[2024-10-23] MEDS: POTASSIUM CHLORIDE IV (03:52)
[2024-10-23] MEDS: NORMAL SALINE 0.9% IV (03:52)
[2024-10-23 06:00] VITALS: BP 143/59; PULSE 76; RESP 14; TEMP 36.2; O2SAT 96
[2024-10-23] MEDS: Aspirin 81 MG TAB.CHEW PO (08:11)
[2024-10-23] MEDS: Ensure Plus High Protein 120 ML LIQUID PO ×2 (09:27→17:39)
[2024-10-23] MEDS: Lisinopril 10 MG Tablet PO (09:28)
[2024-10-23] MEDS: Enoxaparin 40 MG/0.4 ML Syringe SC (09:28)
[2024-10-23] MEDS: Pantoprazole Sodium 40 MG Tablet PO (09:28)
[2024-10-23] MEDS: Clopidogrel Bisulfate 75 MG Tablet PO (09:28)
[2024-10-23] MEDS: Nystatin Powder 15gm Bottle 1 APPLIC TOPICAL ×2 (09:31→21:13)
[2024-10-23] MEDS: Menthol/Lanolin/Calamine/Znox 113 GM Tube 1 APPLIC TOPICAL ×2 (09:31→21:14)
[2024-10-23] MEDS: Senna/Docusate Sodium 1 Tablet 2 TABLET PO (09:35)
[2024-10-23 09:55] VITALS: RESP 16
[2024-10-23] MEDS: Ceftriaxone 1 GM/50 ML BAG IV (11:05)
[2024-10-23] MEDS: 0.9% Saline Lock 10 ML Syringe IV (11:06)
[2024-10-23 15:28] VITALS: BP 100/48; PULSE 104; RESP 16; TEMP 36.4; O2SAT 94
[2024-10-23 20:40] VITALS: PULSE 104; RESP 16; O2SAT 94
[2024-10-23] MEDS: Mirtazapine 15 MG Tablet 7.5 MG PO (21:12)
[2024-10-23] MEDS: Atorvastatin Calcium 40 MG Tablet PO (21:13)
[2024-10-24 06:00] VITALS: BP 130/58; PULSE 85; RESP 16; TEMP 36.6; O2SAT 96
--- NOTE | 2024-10-24 08:11 | CASEMGMT ---
Social Work IDT met with patient and dtr for Team meeting. Discussed patient's progress in PT/OT/ST/SN. Educated to Medicare benefit and will update pt/dtr once [facility] days are provided with [facility]. Pt having difficulty with left side neglect, currently needs two person assist, is incontinent and has a new swift. Pt lived at home alone, mod I prior. SW broached needing alternative plan such as a SNF at [place] for ongoing therapy and care. SW to assist with DC planning. Will ReTeam weekly. Adelaida Mcclelland [employer]W OPERATOR INS[employer]ANCE SALES PROFESSIONAL
[2024-10-24] MEDS: Ciprofloxacin 250 MG Tablet PO ×2 (08:40→20:31)
[2024-10-24] MEDS: Clopidogrel Bisulfate 75 MG Tablet PO (08:40)
[2024-10-24] MEDS: Ensure Plus High Protein 120 ML LIQUID PO ×3 (08:41→16:38)
[2024-10-24] MEDS: Pantoprazole Sodium 40 MG Tablet PO (08:41)
[2024-10-24] MEDS: Lisinopril 10 MG Tablet PO (08:41)
[2024-10-24] MEDS: Nystatin Powder 15gm Bottle 1 APPLIC TOPICAL ×2 (08:41→20:33)
[2024-10-24] MEDS: Aspirin 81 MG TAB.CHEW PO (08:41)
[2024-10-24] MEDS: Menthol/Lanolin/Calamine/Znox 113 GM Tube 1 APPLIC TOPICAL ×2 (08:41→20:32)
[2024-10-24] MEDS: Enoxaparin 40 MG/0.4 ML Syringe SC (08:41)
[2024-10-24] MEDS: 0.9% Saline Lock 10 ML Syringe IV (08:42)
--- NOTE | 2024-10-24 09:30 | PN.REHAB_ITS ---
Subjective Subjective Patient seen, examined on Team Rounds. Daughter Chelsea present, engaged. Patient eating breakfast well. She is progressing with therapy, blood pressure improved, may need SNF after discharge from as she lives alone. Urine culture growing > 100,000 E. Coli, indwelling swift catheter. Objective Data Objective Data Vital Signs: Vital Signs Temp Pulse Resp BP Pulse Ox O2 Del Method 97.9 F 85 16 130/58 H 96 Room Air 10/24/24 06:00 10/24/24 06:00 10/24/24 06:00 10/24/24 06:00 10/24/24 06:00 10/24/24 06:00 Oxygen Delivery Method Room Air Weight: 74.5 kg Body Mass Index (BMI) 33.0 Intake & Output: Intake and Output for Last 24 Hours 10/22/24 10/23/24 10/24/24 23:59 23:59 23:59 Intake Total 2300 / 2450 4450 / 4450 200 / 200 Output Total 1450 / 2825 3275 / 3275 1100 / 1100 Balance 850 / -375 1175 / 1175 -900 / -900 Lab / Micro Data 10/22/24 05:36 10/22/24 05:36 Micro: Microbiology 10/22/24 11:00 Urine Catheter - Catheter Urine Culture - Final Presumptive E. coli Social Homelessness:: Sheltered Indicators for Scoring Admitted with or Primary Diagnosis of CVA/Stroke: Yes Hx of CVA/Stroke: Yes Modified [place] Score MRS Score at time of Evaluation: 4-Moderate/severe disability Physical Exam Const alert General Appearance: cooperative HEENT normocephalic Eyes PERRL and EOMs intact bilaterally Neck supple, no JVD and no carotid bruits Resp normal respiratory effort, normal air movement and clear to auscultation bilaterally Cardio regular rate and regular rhythm GI normal to inspection, nondistended, normoactive bowel sounds, non-tender and non-distended Bladder / Kidney Exam: catheter in place urethral Extremity normal capillary refill General Extremity: Negative for edema Skin no rashes or lesions noted General Skin Exam: no breakdown Neuro Neuro Narrative: Left hemiplegia, Left neglect. Psych affect normal Appearance: appropriate Assessment & Plan Assessment/Plan (1) Debility: (2) Stroke: (3) Hyperlipidemia: (4) Urinary tract infection: (5) Essential (primary) hypertension: (6) Depression: QUALIFIERS: Depression Type: reactive depression Qualified Code(s): F32.9 - Major depressive disorder, single episode, unspecified (7) GERD (gastroesophageal reflux disease): (8) Urine retention: PLAN: Plan 79 year old female with below past medical history hospitalized with right sided stroke, left hemiplegia, admitted to for 3 hours daily rehabilitation, strengthening, prior to disposition determination. * Debility - PT/OT/ST. * Pain - Tylenol 650mg q6 prn. * Bowel - senna/colace 2 tablets bid, MOM 30mL po x 1 prn, Dulcolax 10mg pr x 1 prn. * DVT prophylaxis - Lovenox 40mg sc daily. * Stroke - Aspirin 81mg daily, Plavix 75mg daily thru 11/09/2024. * Hyperlipidemia - Atorvastatin 40mg qhs. * E. Coli UTI - Deescalate Ceftriaxone IV to Cipro 250mg po bid thru 11/09/2024. * Nutrition - Ensure Plus 120mL po tidcm. * Hypertension - Lisinopril 10mg daily. * Skin irritation - Calmoseptine topical bid. * Depression - Mirtazapine 7.5mg qhs. * Tinea Corporis - Nystatin powder topical bid. * GERD - Pantoprazole 40mg daily. * Urinary retention - Indwelling swift catheter, voiding trials near future.
--- NOTE | 2024-10-24 11:27 | PCM.RU.PYE ---
Admission Information Primary Diagnosis:: Stroke, left hemiplegia. Status Changes from Prescreening?: No changes Identified Actual Problem List:: UTI, Cognitve Impr/Memory Loss, Mobility Impaired, Self Care Deficit, Ineffective Communication, Know.Dfct/Disease Process, Know.Dfct of Medicaitons, BP, Hypertension and Alteration-Leisure Activ. Potential Problem List:: DVT, Bleeding, Infection, UTI, Aspiration, Falls, Skin Integrity and Depression Risk of Complications DVT: LMWH and EMILEE Hose Bleeding: Monitor Lab Values, Nursing to Teach Precautions for anti-coagulation therapy., Wound, if applicable, to be assessed every shift. and Stroke patients assessed for lethargy or change in status. Infection: Clinical Staff to Monitor for S/S of infection: and S/S of infection include fever, redness, warmth, etc. Urinary Tract Infection: Monitor for frequency, burning, discomfort, or incontinence. and Nursing will obtain urine sample for urinalysis and C&S when ordered. Aspiration: Clinical staff will monitor for coughing, drooling, congestion., Speech will evaluate swallowing and dsyphasia. and Nursing will monitor patient swallowing during meals. Falls: Patient will be evaluated for Fall Precautions and Patient will be placed on Fall Precautions as indicated per protocol. Skin Breakdown: Nursing will assess skin daily using assessment tool. and Nursing will place on Skin Breakdown Precautions as indicated. Pain: Clinical staff will assess patient's pain level per protocol., Medications will be given, if needed, and the pain level reassessed. and Other methods: Massage, distraction, decrease stimulus, etc. used PRN. Plan of Care Patient requires physician specializing in physical medicine and rehab oversight to provide close medical supervision of rehab issues including: Pain Management, Sleep Problems, Bowel and Bladder, Medical and co-morbidity Management, DVT prophylaxis, Rehabilitation Leadership and Coordination of treatment team Patient needs Physical Therapy: For a minimum of 1 hour Patient needs Physical Therapy to improve:: Mobility, Strengthening, Transfers, Stretching, ROM, Endurance, Stairs, Gait and Balance Patient needs Occupational Therapy: For a minimum of 1 hour Patient needs Occupational Therapy to improve ADL's incl.: Eating, Grooming, Bathing, Dressing, Toileting, Toilet transfers, Community Reintegration, Higher functioning activities, Household tasks, Adaptive Equipment, Splinting and Other activities as determined Patient requires speech therapy: For a minimum of 1 hour Patient requires speech therapy for: Swallowing, Cognition, Language Skills and Compensatory Strategies Patient requires 24/7 Rehabilitation Nursing for: Pain Issues, Identifying and preventing risk factors, Monitoring and reporting current medical conditions, Assisting with ambulation, transfer, and all ADL's, Teaching patients about disease process and medications, Family teaching, Providing safe environment, Bowel and Bladder Issues, Skin integrity and Medication Management Patient needs Environmental Planning Engineer/ Case Management for: Discharge Planning, Arranging Home Equipment or Services and Family Interventions Patient needs Dietary and Nutrition Services for: Adequate Nutrition, Nutritional Supplements and Nutritional Education Goals Goals Patient will remain: free from falls Patient will perform bed mobility at: - (Min A.) Patient will complete transfers from bed to chair at: Standby Assist. Patient will ambulate: 100 feet and - (CGA) Patient will complete upper body dressing at: - (Min A with AE) Patient will complete lower body dressing at: - (Min A with AE) Patient will complete toilet transfer at: - (Min A.) Patient will complete toileting at: - (Min A.) Patient will perform Tub/Shower transfer at: - (Min A.) Patient will complete grooming at: - (Set up.) Discharge Planning Pt Prognosis for Sig. Practical Improv. w/in Reasonable Time: Fair Estimated Length of stay (days): 21 Anticipated D/C Destination: [facility] Was Preadmission Assessment Accurate?: Yes
[2024-10-24 15:18] VITALS: BMI 33.0
--- NOTE | 2024-10-24 15:56 | CASEMGMT ---
Social Work SW received Medicare days. Phoned dtr to update that Medicare approve 23 days, with DC 11/13. Dtr asked additional questions with DC planning. Dtr is thinking pt will need a SNF. SW briefly educated to SNF [facility] benefit and copay coverage, in efforts not to overwhelm dtr. SW offered to discuss in further detail next week after further therapy or schedule a meeting with dtr and son. Dtr appreciative. SW will continue to follow. Adelaida Mcclelland REALTY SPECIALIST PRINTING TECHNICIAN
[2024-10-24 18:00] VITALS: BP 128/60; PULSE 78; RESP 16; TEMP 36.6; O2SAT 97
[2024-10-24 19:45] VITALS: PULSE 78; RESP 16; O2SAT 97
[2024-10-24 20:00] VITALS: BMI 33.0
[2024-10-24] MEDS: Atorvastatin Calcium 40 MG Tablet PO (20:32)
[2024-10-24] MEDS: Mirtazapine 15 MG Tablet 7.5 MG PO (20:32)
[2024-10-24] MEDS: Senna/Docusate Sodium 1 Tablet 2 TABLET PO (20:32)
[2024-10-25 05:46] VITALS: BP 145/63; PULSE 91; RESP 16; TEMP 36.9; O2SAT 93; BMI 33.7
[2024-10-25] MEDS: Senna/Docusate Sodium 1 Tablet 2 TABLET PO ×2 (07:48→22:43)
[2024-10-25] MEDS: Lisinopril 10 MG Tablet PO (07:48)
[2024-10-25] MEDS: Ensure Plus High Protein 120 ML LIQUID PO ×2 (07:48→11:46)
[2024-10-25] MEDS: Ciprofloxacin 250 MG Tablet PO ×2 (07:48→22:28)
[2024-10-25] MEDS: Pantoprazole Sodium 40 MG Tablet PO (07:48)
[2024-10-25] MEDS: Clopidogrel Bisulfate 75 MG Tablet PO (07:48)
[2024-10-25] MEDS: Enoxaparin 40 MG/0.4 ML Syringe SC (07:48)
[2024-10-25] MEDS: Aspirin 81 MG TAB.CHEW PO (07:48)
[2024-10-25] MEDS: Nystatin Powder 15gm Bottle 1 APPLIC TOPICAL ×2 (07:49→22:35)
[2024-10-25] MEDS: Menthol/Lanolin/Calamine/Znox 113 GM Tube 1 APPLIC TOPICAL ×2 (07:49→22:36)
[2024-10-25] MEDS: 0.9% Saline Lock 10 ML Syringe IV ×2 (07:50→22:47)
--- NOTE | 2024-10-25 08:08 | PN.REHAB_ITS ---
Subjective Subjective Patient seen, examined. She has no new complaints, No acute events over night, she is busy eating her breakfast. Objective Data Objective Data Vital Signs: Vital Signs Temp Pulse Resp BP Pulse Ox O2 Del Method 98.5 F 91 16 145/63 H 93 Room Air 10/25/24 05:46 10/25/24 05:46 10/25/24 05:46 10/25/24 05:46 10/25/24 05:46 10/25/24 05:46 Oxygen Delivery Method Room Air Weight: 75.8 kg Body Mass Index (BMI) 33.7 Intake & Output: Intake and Output for Last 24 Hours 10/23/24 10/24/24 10/25/24 23:59 23:59 23:59 Intake Total 4450 / 4450 960 / 960 400 / 400 Output Total 3275 / 3275 2700 / 2700 600 / 600 Balance 1175 / 1175 -1740 / -1740 -200 / -200 Lab / Micro Data 10/22/24 05:36 10/22/24 05:36 Micro: Microbiology 10/22/24 11:00 Urine Catheter - Catheter Urine Culture - Final Presumptive E. coli Social Homelessness:: Sheltered Indicators for Scoring Admitted with or Primary Diagnosis of CVA/Stroke: Yes Hx of CVA/Stroke: Yes Modified [place] Score MRS Score at time of Evaluation: 4-Moderate/severe disability Physical Exam Const alert General Appearance: cooperative HEENT normocephalic Eyes PERRL and EOMs intact bilaterally Neck supple, no JVD and no carotid bruits Resp normal respiratory effort, normal air movement and clear to auscultation bilaterally Cardio regular rate and regular rhythm GI normal to inspection, nondistended, normoactive bowel sounds, non-tender and non-distended Bladder / Kidney Exam: catheter in place urethral Extremity normal capillary refill General Extremity: Negative for edema Skin no rashes or lesions noted General Skin Exam: no breakdown Neuro Neuro Narrative: Left hemiplegia, Left neglect. Psych affect normal Appearance: appropriate Assessment & Plan Assessment/Plan (1) Debility: (2) Stroke: (3) Hyperlipidemia: (4) Urinary tract infection: (5) Essential (primary) hypertension: (6) Depression: QUALIFIERS: Depression Type: reactive depression Qualified Code(s): F32.9 - Major depressive disorder, single episode, unspecified (7) GERD (gastroesophageal reflux disease): (8) Urine retention: PLAN: Plan 79 year old female with below past medical history hospitalized with right sided stroke, left hemiplegia, admitted to for 3 hours daily rehabilitation, strengthening, prior to disposition determination. * Debility - PT/OT/ST. * Pain - Tylenol 650mg q6 prn. * Bowel - senna/colace 2 tablets bid, MOM 30mL po x 1 prn, Dulcolax 10mg pr x 1 prn. * DVT prophylaxis - Lovenox 40mg sc daily. * Stroke - Aspirin 81mg daily, Plavix 75mg daily thru 11/09/2024. * Hyperlipidemia - Atorvastatin 40mg qhs. * E. Coli UTI - Cipro 250mg po bid thru 11/09/2024. * Nutrition - Ensure Plus 120mL po tidcm. * Hypertension - Lisinopril 10mg daily. * Skin irritation - Calmoseptine topical bid. * Depression - Mirtazapine 7.5mg qhs. * Tinea Corporis - Nystatin powder topical bid. * GERD - Pantoprazole 40mg daily. * Urinary retention - Indwelling swift catheter, voiding trials near future.
[2024-10-25 16:21] VITALS: BMI 33.7
[2024-10-25 18:00] VITALS: BP 144/73; PULSE 90; RESP 16; TEMP 36.8; O2SAT 94
[2024-10-25] MEDS: Atorvastatin Calcium 40 MG Tablet PO (22:28)
[2024-10-25] MEDS: Mirtazapine 15 MG Tablet 7.5 MG PO (22:28)
[2024-10-26 06:00] VITALS: BP 135/76; PULSE 83; RESP 18; TEMP 36.7; O2SAT 94
[2024-10-26] MEDS: Menthol/Lanolin/Calamine/Znox 113 GM Tube 1 APPLIC TOPICAL ×2 (09:21→21:08)
[2024-10-26] MEDS: Ciprofloxacin 250 MG Tablet PO ×2 (09:21→21:02)
[2024-10-26] MEDS: Enoxaparin 40 MG/0.4 ML Syringe SC (09:21)
[2024-10-26] MEDS: Senna/Docusate Sodium 1 Tablet 2 TABLET PO ×2 (09:21→21:02)
[2024-10-26] MEDS: Pantoprazole Sodium 40 MG Tablet PO (09:21)
[2024-10-26] MEDS: Aspirin 81 MG TAB.CHEW PO (09:21)
[2024-10-26] MEDS: Clopidogrel Bisulfate 75 MG Tablet PO (09:21)
[2024-10-26] MEDS: Ensure Plus High Protein 120 ML LIQUID PO ×3 (09:21→17:19)
[2024-10-26] MEDS: Lisinopril 10 MG Tablet PO (09:21)
[2024-10-26] MEDS: Nystatin Powder 15gm Bottle 1 APPLIC TOPICAL ×2 (09:22→21:05)
[2024-10-26 11:33] VITALS: BMI 33.7
[2024-10-26] MEDS: 0.9% Saline Lock 10 ML Syringe IV (12:02)
[2024-10-26] MEDS: Magnesium Hydroxide 30 ML UDC PO (15:34)
[2024-10-26 17:35] VITALS: BP 115/57; PULSE 98; RESP 17; TEMP 36.7; O2SAT 93
[2024-10-26] MEDS: Mirtazapine 15 MG Tablet 7.5 MG PO (21:02)
[2024-10-26] MEDS: Atorvastatin Calcium 40 MG Tablet PO (21:02)
[2024-10-27 04:56] VITALS: BP 136/62; PULSE 92; RESP 18; TEMP 37; O2SAT 95
[2024-10-27] MEDS: Enoxaparin 40 MG/0.4 ML Syringe SC (08:20)
[2024-10-27] MEDS: Senna/Docusate Sodium 1 Tablet 2 TABLET PO ×2 (08:20→21:50)
[2024-10-27] MEDS: Aspirin 81 MG TAB.CHEW PO (08:20)
[2024-10-27] MEDS: Clopidogrel Bisulfate 75 MG Tablet PO (08:20)
[2024-10-27] MEDS: Ciprofloxacin 250 MG Tablet PO ×2 (08:21→21:50)
[2024-10-27] MEDS: Ensure Plus High Protein 120 ML LIQUID PO ×3 (08:21→18:20)
[2024-10-27] MEDS: Lisinopril 10 MG Tablet PO (08:21)
[2024-10-27] MEDS: Pantoprazole Sodium 40 MG Tablet PO (08:21)
[2024-10-27] MEDS: Menthol/Lanolin/Calamine/Znox 113 GM Tube 1 APPLIC TOPICAL ×2 (08:21→21:51)
[2024-10-27] MEDS: Nystatin Powder 15gm Bottle 1 APPLIC TOPICAL ×2 (08:22→21:51)
[2024-10-27 11:20] VITALS: BMI 33.7
[2024-10-27 18:00] VITALS: BP 125/66; PULSE 94; RESP 16; TEMP 37; O2SAT 95
[2024-10-27] MEDS: Atorvastatin Calcium 40 MG Tablet PO (21:50)
[2024-10-27] MEDS: Mirtazapine 15 MG Tablet 7.5 MG PO (21:50)
[2024-10-28 06:27] VITALS: BP 137/64; PULSE 93; RESP 19; TEMP 36.4; O2SAT 95
[2024-10-28] MEDS: Ensure Plus High Protein 120 ML LIQUID PO ×3 (09:26→17:02)
[2024-10-28] MEDS: Aspirin 81 MG TAB.CHEW PO (09:26)
[2024-10-28] MEDS: Lisinopril 10 MG Tablet PO (09:27)
[2024-10-28] MEDS: Ciprofloxacin 250 MG Tablet PO ×2 (09:27→20:00)
[2024-10-28] MEDS: Clopidogrel Bisulfate 75 MG Tablet PO (09:27)
[2024-10-28] MEDS: Senna/Docusate Sodium 1 Tablet 2 TABLET PO ×2 (09:27→20:01)
[2024-10-28] MEDS: Pantoprazole Sodium 40 MG Tablet PO (09:27)
[2024-10-28] MEDS: Enoxaparin 40 MG/0.4 ML Syringe SC (09:27)
[2024-10-28] MEDS: Menthol/Lanolin/Calamine/Znox 113 GM Tube 1 APPLIC TOPICAL ×2 (09:32→19:59)
[2024-10-28] MEDS: Nystatin Powder 15gm Bottle 1 APPLIC TOPICAL ×2 (09:32→20:01)
[2024-10-28 11:03] VITALS: BMI 33.7
--- NOTE | 2024-10-28 11:36 | PN.REHAB_ITS ---
Subjective Subjective Patient seen, examined. She is eating breakfast, she has no new problems, concerns, issues, complaints. She wishes her left side would come back more quickly. She will need dischage to SNF. Objective Data Objective Data Vital Signs: Vital Signs Temp Pulse Resp BP Pulse Ox O2 Del Method 97.5 F L 93 19 H 137/64 H 95 Room Air 10/28/24 06:27 10/28/24 06:27 10/28/24 06:27 10/28/24 06:27 10/28/24 06:27 10/28/24 06:27 Oxygen Delivery Method Room Air Weight: 75.8 kg Body Mass Index (BMI) 33.7 Intake & Output: Intake and Output for Last 24 Hours 10/26/24 10/27/24 10/28/24 23:59 23:59 23:59 Intake Total 910 / 1035 2235 / 2235 660 / 660 Output Total 2230 / 2230 2275 / 2275 600 / 600 Balance -1320 / -1195 -40 / -40 60 / 60 Lab / Micro Data 10/22/24 05:36 10/22/24 05:36 Micro: Microbiology 10/22/24 11:00 Urine Catheter - Catheter Urine Culture - Final Presumptive E. coli Social Homelessness:: Sheltered Indicators for Scoring Admitted with or Primary Diagnosis of CVA/Stroke: Yes Hx of CVA/Stroke: Yes Modified [place] Score MRS Score at time of Evaluation: 4-Moderate/severe disability Physical Exam Const alert General Appearance: cooperative HEENT normocephalic Eyes PERRL and EOMs intact bilaterally Neck supple, no JVD and no carotid bruits Resp normal respiratory effort, normal air movement and clear to auscultation bilaterally Cardio regular rate and regular rhythm GI normal to inspection, nondistended, normoactive bowel sounds, non-tender and non-distended Bladder / Kidney Exam: catheter in place urethral Extremity normal capillary refill Extremity Narrative: Left upper extremity sling. General Extremity: Negative for edema Skin no rashes or lesions noted General Skin Exam: no breakdown Neuro Neuro Narrative: Left hemiplegia, Left neglect. Psych affect normal Appearance: appropriate Assessment & Plan Assessment/Plan (1) Debility: (2) Stroke: (3) Hyperlipidemia: (4) Urinary tract infection: (5) Essential (primary) hypertension: (6) Depression: QUALIFIERS: Depression Type: reactive depression Qualified Code(s): F32.9 - Major depressive disorder, single episode, unspecified (7) GERD (gastroesophageal reflux disease): (8) Urine retention: PLAN: Plan 79 year old female with below past medical history hospitalized with right sided stroke, left hemiplegia, admitted to for 3 hours daily rehabilitation, strengthening, prior to disposition determination. * Debility - PT/OT/ST. * Pain - Tylenol 650mg q6 prn. * Bowel - senna/colace 2 tablets bid, MOM 30mL po x 1 prn, Dulcolax 10mg pr x 1 prn. * DVT prophylaxis - Lovenox 40mg sc daily. * Stroke - Aspirin 81mg daily, Plavix 75mg daily thru 11/09/2024, then Aspirin 81mg daily only. * Hyperlipidemia - Atorvastatin 40mg qhs. * E. Coli UTI - Cipro 250mg po bid thru 11/09/2024. * Nutrition - Ensure Plus 120mL po tidcm. * Hypertension - Lisinopril 10mg daily. * Skin irritation - Calmoseptine topical bid. * Depression - Mirtazapine 7.5mg qhs. * Tinea Corporis - Nystatin powder topical bid. * GERD - Pantoprazole 40mg daily. * Urinary retention - Indwelling swift catheter, voiding trials near future.
[2024-10-28 17:26] VITALS: BP 135/56; PULSE 94; RESP 17; TEMP 36.3; O2SAT 94
[2024-10-28] MEDS: Mirtazapine 15 MG Tablet 7.5 MG PO (20:00)
[2024-10-28] MEDS: Atorvastatin Calcium 40 MG Tablet PO (20:00)
[2024-10-29 05:00] VITALS: BMI 33.7
[2024-10-29 06:00] VITALS: BP 139/81; PULSE 95; RESP 17; TEMP 36.6; O2SAT 94
[2024-10-29] MEDS: Ciprofloxacin 250 MG Tablet PO ×2 (07:36→20:18)
[2024-10-29] MEDS: Enoxaparin 40 MG/0.4 ML Syringe SC (07:37)
[2024-10-29] MEDS: Ensure Plus High Protein 120 ML LIQUID PO ×2 (07:37→12:07)
[2024-10-29] MEDS: Pantoprazole Sodium 40 MG Tablet PO (07:37)
[2024-10-29] MEDS: Lisinopril 10 MG Tablet PO (07:37)
[2024-10-29] MEDS: Senna/Docusate Sodium 1 Tablet 2 TABLET PO ×2 (07:37→20:18)
[2024-10-29] MEDS: Clopidogrel Bisulfate 75 MG Tablet PO (07:37)
[2024-10-29] MEDS: Aspirin 81 MG TAB.CHEW PO (07:37)
[2024-10-29] MEDS: Menthol/Lanolin/Calamine/Znox 113 GM Tube 1 APPLIC TOPICAL ×2 (07:37→20:26)
[2024-10-29] MEDS: Nystatin Powder 15gm Bottle 1 APPLIC TOPICAL ×2 (07:38→20:26)
--- NOTE | 2024-10-29 10:22 | REHABEVAL_ITS ---
Admission Information Primary Diagnosis:: Poststroke debility Actual Problem List:: UTI, Cognitve Impr/Memory Loss, Mobility Impaired, Self Care Deficit, Ineffective Communication, Know.Dfct/Disease Process, Know.Dfct of Medicaitons, BP, Hypertension and Alteration-Leisure Activ. Potential Problem List:: DVT, Bleeding, Infection, UTI, Aspiration, Falls, Skin Integrity and Depression Goals Goals Patient will remain: free from falls Patient will perform eating at: MOD I level of assist. Patient will perform bed mobility at: MOD I level of assist. Patient will complete transfers from bed to chair at: Standby Assist. Patient will ambulate: 100 feet (With least restrictive device at contact-guard assist) Patient will complete upper body dressing at: - Patient will complete lower body dressing at: - (Min assist with adaptive equipment as needed) Patient will complete toilet transfer at: - (Min assist) Patient will complete toileting at: - (Minimal assistance) Patient will perform bathing at: - (Upper body bathing at min assist and lower body bathing at min assist with adaptive equipment as needed to increase independence with self-care) Patient will perform Tub/Shower transfer at: - (Min assist using DME as needed) Patient will complete grooming at: - (Set up level while seated at the sink) Patient will achieve: - (2 curb steps with least restrictive device at contact- guard assist) Patient will have pain level of: of 3 or less Patient's skin will: remain intact Patient will receive: adequate nutrition. Discharge Planning Estimated Length of stay (days): 28 Anticipated D/C Destination: TBD Was Preadmission Assessment Accurate?: Yes
--- NOTE | 2024-10-29 11:16 | PCM.PROGNOTE ---
Subjective Subjective Day #6 of 7 for a pansensitive E. coli urinary tract infection. Afebrile VSS -heart rate over the past 72 hours has ranged from 83-98 and is most often in the 90s. The blood pressure has ranged from 125/66 to 139/81 this morning. Maintaining appropriate oxygen saturation on RA Oral intake - FOOD good FLUIDS good She had 2 bowel movements on 10/22/2024 and then had another bowel movement on 10/26/2024 and has not had 1 since. She received 30 cc of milk of magnesia on 10/26/2024. She is currently on senna 2 tablets twice daily. Discussed with nursing - no problems that need addressed Reviewed the THERAPY notes Medication list reviewed. Currently taking aspirin 81 mg a day, atorvastatin 40 mg daily, Plavix 75 mg daily, lisinopril 10 mg daily. DVT prophylaxis is enoxaparin 40 mg subcu daily. She is taking Remeron 7.5 mg at bedtime for depression. Remeron was started on 10/22/2024. Complaining that she is having difficulty falling asleep at night. When she is asleep she can generally stay asleep. She admits to feeling somewhat anxious and has a lot on her mind about what will happen to her when she is discharged from rehab. She denies lightheadedness. She also denies cephalgia, chest pain, shortness of breath, cough, sore throat, nausea/vomiting, abdominal pain, suprapubic discomfort and calf pain. Objective Data Objective Data Vital Signs: Vital Signs Temp Pulse Resp BP Pulse Ox O2 Del Method 97.8 F 95 17 139/81 H 94 Room Air 10/29/24 06:00 10/29/24 06:00 10/29/24 06:00 10/29/24 06:00 10/29/24 06:00 10/29/24 06:00 Oxygen Delivery Method Room Air Weight: 167 lb 1.766 oz Body Mass Index (BMI) 33.7 Intake & Output: Intake and Output for Last 24 Hours 10/27/24 10/28/24 10/29/24 23:59 23:59 23:59 Intake Total 2235 / 2235 2080 / 2980 1540 / 1540 Output Total 2275 / 2275 2410 / 3360 1250 / 1250 Balance -40 / -40 -330 / -380 290 / 290 Lab / Micro Data 10/22/24 05:36 10/22/24 05:36 Micro: Microbiology 10/22/24 11:00 Urine Catheter - Catheter Urine Culture - Final Presumptive E. coli Social Homelessness:: Sheltered Physical Exam Const alert, oriented x3 and no apparent distress Constitutional Narrative: Lying flat in bed with no respiratory distress and no tachypnea. Arouses easily. General Appearance: cooperative HEENT HEENT Narrative: Somewhat pale. Mouth: dry mucous membranes Resp normal respiratory effort, normal air movement and clear to auscultation bilaterally Cardio regular rate and regular rhythm GI normal to inspection, nondistended, normoactive bowel sounds, non-tender and non-distended Bladder / Kidney Exam: catheter in place urethral Extremity General Extremity: Negative for edema Skin no rashes or lesions noted General Skin Exam: no breakdown Assessment & Plan Assessment/Plan (1) Debility: (2) Acute right arterial ischemic stroke, MCA (middle cerebral artery): (3) Left-sided neglect: (4) Partial hemianopia: (5) Facial droop: (6) Left-sided weakness: (7) Urine retention: (8) Fecal incontinence: QUALIFIERS: Fecal incontinence type: full incontinence of feces Qualified Code(s): R15.9 - Full incontinence of feces (9) Depression: QUALIFIERS: Depression Type: reactive depression Qualified Code(s): F32.9 - Major depressive disorder, single episode, unspecified (10) Dyslipidemia: (11) Acute cystitis: QUALIFIERS: Hematuria presence: without hematuria Qualified Code(s): N30.00 - Acute cystitis without hematuria PLAN: Present at admission to rehab. (12) Thyroid nodule incidentally noted on imaging study: PLAN: An incidental finding on CTA of the neck. 3.3 x 2.9 x 4.3 cm heterogeneous solid/cystic mass. TSH normal. Will need follow-up as outpatient and likely needs a biopsy. (13) HTN (hypertension): (14) Constipation: PLAN: Plan 1. Continue therapy 2. CBC with differential and BMP in the a.m. 3. Check a KUB today to assess stool burden 4. Voiding trial in the a.m. 5. Antibiotics for E. coli CAUTI will finish tomorrow. Urine in the Meehan bag is pale yellow and clear. 6. Add Miralax 17 GM daily to the current drug regimen. 7. MOM 30 cc now. 8. Increase Remeron to 15 mg at at bedtime Charges/Coding Visit Charges Inpatient E&M: 93444 Subs Hosp L1
--- NOTE | 2024-10-29 15:25 | RAD_ITS ---
EXAM: XR ABDOMEN, 1 VIEW CLINICAL INDICATION: Obstipation TECHNIQUE: Frontal supine view of the abdomen/pelvis. COMPARISON: No relevant prior studies available. FINDINGS: Scoliosis and degenerative changes of the spine pelvis. Possible small calcified fibroid within the pelvis. Stool throughout the colon can be seen constipation. No bowel obstruction. Limited assessment for free air on supine imaging. RAD/Abdomen Single View IMPRESSION: Findings can be seen constipation; no bowel obstruction or acute disease. Electronically Signed: Geo Gonzalez MD at 16:40 EST ,
[2024-10-29] MEDS: Polyethylene Glycol 3350 17 GM PACKET PO (15:44)
[2024-10-29] MEDS: Magnesium Hydroxide 30 ML UDC PO (15:44)
[2024-10-29 17:00] VITALS: BMI 33.7
[2024-10-29 18:00] VITALS: BP 119/64; PULSE 96; RESP 16; TEMP 36.5; O2SAT 96
[2024-10-29] MEDS: Bisacodyl 5 MG Tablet 10 MG PO (20:17)
[2024-10-29] MEDS: Mirtazapine 15 MG Tablet PO (20:17)
[2024-10-29] MEDS: Atorvastatin Calcium 40 MG Tablet PO (20:18)
[2024-10-29] MEDS: Zolpidem Tartrate 5 MG Tablet PO (21:59)
[2024-10-30 05:00] VITALS: BMI 33.7
[2024-10-30 05:33] VITALS: BP 106/56; PULSE 94; RESP 16; TEMP 36.4; O2SAT 94
[2024-10-30] MEDS: Enoxaparin 40 MG/0.4 ML Syringe SC (05:35)
[2024-10-30 05:52] LABS: Absolute Lymphocyte Count 1.75 X10^3/uL (0.83-4.51); Absolute Neutrophil Count 6.6 X10^3/uL (2.0-7.7); Basophil# 0.04 X10^3/uL; Basophil% 0.4 % (0-1); Eosinophil# 0.38 X10^3/uL; Eosinophils% 3.9 % (0-5); Hematocrit 44.8 % (37-47); Hemoglobin 14.6 g/dL (12.0-15.0); Lymphocyte # 1.75 X10^3/ul (0.83-4.51); Lymphocyte % 17.8 % (19-41); Mean Corp Hgb Conc 32.6 g/dL (32-36); Mean Corpuscular Hgb 29.4 pg (27.0-32.0); Mean Corpuscular Volume 90.1 fL (81-99); Mean Platelet Vol. 10.1 fl (6.2-12.0); Monocyte# 0.98 X10^3/uL; Monocyte% 9.9 % (0-10); NRBC Flagged by Analyzer 0 % (0-5); Neutrophil # 6.63 X10^3/uL (2.7-7.7); Neutrophil % 67.3 % (47-70); Platelet Count 261 K/mm3 (150-450); RBC Distribution Width CV 12.7 % (11.6-14.6); RBC Distribution Width SD 41.6 fl (35.1-43.9); Red Blood Count 4.97 M/mm3 (4.2-5.4); White Blood Count 9.9 K/mm3 (4.4-11.0)
[2024-10-30 06:11] LABS: Anion Gap 3 (5-15); BUN 18 mg/dL (7-18); BUN/Creat Ratio 22.3 RATIO (10-20); Calcium,Total 9.1 mg/dL (8.5-10.1); Chloride 102 mmol/L (98-107); Creatinine, Serum 0.81 mg/dL (0.55-1.02); EST Glomerular Filtration Rate 73 mL/min (>60); Est Glom Filt Rate - Afr Amer 88 mL/min (>60); Estimated Creatinine Clearance 52.07 ml/min; Glucose 104 mg/dL (74-106); Potassium 4.6 mmol/L (3.5-5.1); Sodium Level 135 mmol/L (136-145)
[2024-10-30] MEDS: Lisinopril 10 MG Tablet PO (07:54)
[2024-10-30] MEDS: Pantoprazole Sodium 40 MG Tablet PO (07:54)
[2024-10-30] MEDS: Clopidogrel Bisulfate 75 MG Tablet PO (07:54)
[2024-10-30] MEDS: Ciprofloxacin 250 MG Tablet PO (07:54)
[2024-10-30] MEDS: Ensure Plus High Protein 120 ML LIQUID PO ×2 (07:54→12:51)
[2024-10-30] MEDS: Menthol/Lanolin/Calamine/Znox 113 GM Tube 1 APPLIC TOPICAL ×2 (07:54→20:52)
[2024-10-30] MEDS: Senna/Docusate Sodium 1 Tablet 2 TABLET PO ×2 (07:54→20:51)
[2024-10-30] MEDS: Polyethylene Glycol 3350 17 GM PACKET PO (07:54)
[2024-10-30] MEDS: Aspirin 81 MG TAB.CHEW PO (07:54)
[2024-10-30] MEDS: Nystatin Powder 15gm Bottle 1 APPLIC TOPICAL ×2 (07:55→20:51)
[2024-10-30] MEDS: Magnesium Hydroxide 30 ML UDC PO (07:56)
[2024-10-30] MEDS: Magnesium Citrate 300 ML PO (12:50)
[2024-10-30 14:32] VITALS: BMI 33.7
[2024-10-30] MEDS: 0.9% Saline Lock 10 ML Syringe IV (16:41)
[2024-10-30 17:40] VITALS: BP 131/62; PULSE 97; RESP 17; TEMP 36.3; O2SAT 92
[2024-10-30] MEDS: Fleet Enema 133 ML RC (19:56)
[2024-10-30 20:00] VITALS: PULSE 97; RESP 17; O2SAT 92; BMI 33.7
[2024-10-30] MEDS: Atorvastatin Calcium 40 MG Tablet PO (20:51)
[2024-10-30] MEDS: Mirtazapine 15 MG Tablet PO (20:51)
[2024-10-31] MEDS: Enoxaparin 40 MG/0.4 ML Syringe SC (05:58)
[2024-10-31 06:00] VITALS: BP 123/63; PULSE 98; RESP 16; TEMP 36.4; O2SAT 92
[2024-10-31] MEDS: Aspirin 81 MG TAB.CHEW PO (07:50)
[2024-10-31] MEDS: Pantoprazole Sodium 40 MG Tablet PO (07:50)
[2024-10-31] MEDS: Polyethylene Glycol 3350 17 GM PACKET PO (07:51)
[2024-10-31] MEDS: Nystatin Powder 15gm Bottle 1 APPLIC TOPICAL ×2 (07:51→20:32)
[2024-10-31] MEDS: Menthol/Lanolin/Calamine/Znox 113 GM Tube 1 APPLIC TOPICAL ×2 (07:51→20:32)
[2024-10-31] MEDS: Lisinopril 10 MG Tablet PO (07:51)
[2024-10-31] MEDS: Ensure Plus High Protein 120 ML LIQUID PO ×3 (07:51→17:41)
[2024-10-31] MEDS: Clopidogrel Bisulfate 75 MG Tablet PO (07:51)
[2024-10-31] MEDS: Senna/Docusate Sodium 1 Tablet 2 TABLET PO ×2 (07:51→20:33)
--- NOTE | 2024-10-31 08:50 | PN_ITS ---
Subjective Subjective Yana was seen on team rounds today. Her family was present in the room. All their questions were answered to their satisfaction. Afebrile VSS - Maintaining appropriate oxygen saturation on RA Oral intake - FOOD she ate 50 to 74% of her meals yesterday. FLUIDS good Discussed with nursing - no problems that need addressed. large BM's today, non-formed. Large BM last night after a Fleets and enema. Reviewed the THERAPY notes Medication list reviewed. All lab drawn 10/30/2024 was personally reviewed. Better hydrated. Sodium is borderline low at 135. Potassium is 4.6 and the BUN is now 18 with a creatinine of 0.81 which is within her baseline. CBC is unremarkable. Sleeping well. Good appetite. Cooperative and very motivated to do therapy. Always pleasant and calm. Makes good eye contact when we are talking. Denies lightheadedness, cephalgia, chest pain, palpitations, shortness of breath, nausea/vomiting/abdominal pain, calf tenderness. Objective Data Objective Data Vital Signs: Vital Signs Temp Pulse Resp BP Pulse Ox O2 Del Method 97.5 F L 98 16 123/63 H 92 Room Air 10/31/24 06:00 10/31/24 06:00 10/31/24 06:00 10/31/24 06:00 10/31/24 06:00 10/31/24 06:00 Oxygen Delivery Method Room Air Weight: 167 lb 1.766 oz Body Mass Index (BMI) 33.7 Intake & Output: Intake and Output for Last 24 Hours 10/29/24 10/30/24 10/31/24 23:59 23:59 23:59 Intake Total 2880 / 2880 1880 / 1880 680 / 680 Output Total 2950 / 2950 1800 / 1800 450 / 450 Balance -70 / -70 80 / 80 230 / 230 Lab / Micro Data 10/30/24 05:34 10/30/24 05:34 Micro: Microbiology 10/22/24 11:00 Urine Catheter - Catheter Urine Culture - Final Presumptive E. coli Social Homelessness:: Sheltered Physical Exam Const alert, oriented x3 and no apparent distress General Appearance: cooperative Resp normal respiratory effort, normal air movement and clear to auscultation bilaterally Effort and Inspection: Negative for tachypneic Cardio regular rate and regular rhythm GI GI Narrative: Abdomen is softer and more flat today since several bowel movements. Normal bowel sounds heard in all 4 quadrants. No guarding with palpation. Extremity General Extremity: Negative for edema Skin no rashes or lesions noted General Skin Exam: no breakdown Assessment & Plan Assessment/Plan (1) Debility: (2) Acute right arterial ischemic stroke, MCA (middle cerebral artery): (3) Left-sided neglect: (4) Partial hemianopia: (5) Facial droop: (6) Left-sided weakness: (7) Urine retention: (8) Fecal incontinence: QUALIFIERS: Fecal incontinence type: full incontinence of feces Q ualified Code(s): R15.9 - Full incontinence of feces (9) Depression: QUALIFIERS: Depression Type: reactive depression Qualified Code(s): F32.9 - Major depressive disorder, single episode, unspecified (10) Dyslipidemia: (11) Acute cystitis: QUALIFIERS: Hematuria presence: without hematuria Qualified Code(s): N30.00 - Acute cystitis without hematuria PLAN: Present at admission to rehab. (12) Thyroid nodule incidentally noted on imaging study: PLAN: An incidental finding on CTA of the neck. 3.3 x 2.9 x 4.3 cm heterogeneous solid/cystic mass. TSH normal. Will need follow-up as outpatient and likely needs a biopsy. (13) HTN (hypertension): (14) Constipation: QUALIFIERS: Constipation type: unspecified constipation type Q ualified Code(s): K59.00 - Constipation, unspecified PLAN: Plan 1. Continue therapy 2. Discontinue the Meehan catheter this afternoon and send a catheter specimen for UA prior to removal. Charges/Coding Visit Charges Inpatient E&M: 98995 Subs Hosp L2
--- NOTE | 2024-10-31 13:05 | CASEMGMT ---
Addendum entered by Adelaida Mcclelland 10/31/24 13:43: Family's first preference is [facility] d/t location. SW sent referral via [employer]. Original Note: Social Work IDT met with patient, dtr and son for Team meeting. Discussed patient's progress in PT/OT/ST/SN. Educated to Medicare approval of 23 days with DC 11/13. Pt is still requiring x2 assist with tasks and pt lives home alone. Though pt has made improvements, SW discussed recommendations for SNF at [place]. Family agrees. SW provided printed list of SNF providers in [facility] including quality and resource data via [employer] Guide. Educated to Medicare benefit for SNF stay. Family to review and notify this worker of choices. SW provided brochure and educated to Stroke Support Group. SW will continue to follow for DC planning. Will ReTeam next week. TIMOTHY AriasW
[2024-10-31 14:07] LABS: Bacteria 0 SEEN /hpf (None Seen); Mucous, Urine 0 SEEN /hpf (<or=2+); Squamous Epithelial Cells - UA 0 SEEN /hpf (5-10); White Blood Cells 0 SEEN /hpf (0-5)
[2024-10-31 14:19] LABS: Color, Urine Yellow (Yellow); Glucose, Dipstick Normal (Normal); Ketone-Dipstick Negative (Negative); Leukocyte Esterase-Dipstick Negative /ul (Negative); Nitrite-Dipstick Negative (Negative); Occult Blood-Urine 50 /ul (Negative); Protein-Dipstick Negative (Negative); Urine Bilirubin Dipstick Negative (Negative); Urine Clarity Sl. Cloudy (Clear); Urine Urobilinogen Normal (Normal); Urine pH 6.5 (5.0 - 8.0)
[2024-10-31 14:25] LABS: Red Blood Cells-Urine 0-5 SEEN /hpf (0-5)
[2024-10-31 14:31] VITALS: BMI 33.7
[2024-10-31 17:46] VITALS: BP 119/67; PULSE 102; RESP 17; TEMP 36.4; O2SAT 94
[2024-10-31 19:45] VITALS: PULSE 102; RESP 17; O2SAT 94; BMI 33.7
[2024-10-31] MEDS: Mirtazapine 15 MG Tablet PO (20:32)
[2024-10-31] MEDS: Atorvastatin Calcium 40 MG Tablet PO (20:32)
--- NOTE | 2024-11-01 00:48 | NURSING ---
1944 swift catheter was removed as per order at this time. pt tolerated well; pt had been incontinent of stool prior to removal the swift and was up in pts vaginal area . pt cleansed well and clinical findings completed 2100 pt put on light to report that she needed to void and was placed on the bed miranda, pt voided 100cc. bladder scan completed and value was 618cc 2200 pt requested to void again and did 200cc in the bedpan, pt bladder scanned again and value was 610. 2345 pt was straight cathed per house policy for 800cc. rn made aware
[2024-11-01 06:00] VITALS: BP 119/53; PULSE 95; RESP 16; TEMP 36.6; O2SAT 93
[2024-11-01] MEDS: Enoxaparin 40 MG/0.4 ML Syringe SC (07:11)
--- NOTE | 2024-11-01 07:37 | NURSING ---
0630 PT HAD NOT VOIDED AND BLADDER SCAN COMPLETED AND THE VALUE WAS 608CC. PT WAS PLACED ON THE BSC TO SEE IF SHE COULD VOID WITH NO SUCCESS; PT RETURNED TO BED AND WAS STRAIGHT CATHED FOR 650CC. PT TOLERATED WELL
[2024-11-01] MEDS: Polyethylene Glycol 3350 17 GM PACKET PO (07:51)
[2024-11-01] MEDS: Aspirin 81 MG TAB.CHEW PO (07:52)
[2024-11-01] MEDS: Senna/Docusate Sodium 1 Tablet 2 TABLET PO ×2 (07:52→22:41)
[2024-11-01] MEDS: Clopidogrel Bisulfate 75 MG Tablet PO (07:52)
[2024-11-01] MEDS: Menthol/Lanolin/Calamine/Znox 113 GM Tube 1 APPLIC TOPICAL ×2 (07:52→22:41)
[2024-11-01] MEDS: Pantoprazole Sodium 40 MG Tablet PO (07:52)
[2024-11-01] MEDS: Lisinopril 10 MG Tablet PO (07:52)
[2024-11-01] MEDS: Nystatin Powder 15gm Bottle 1 APPLIC TOPICAL ×2 (07:53→22:42)
[2024-11-01] MEDS: Ensure Plus High Protein 120 ML LIQUID PO ×2 (07:53→13:12)
[2024-11-01 15:10] VITALS: BMI 33.7
[2024-11-01 18:00] VITALS: BP 126/69; PULSE 89; RESP 18; TEMP 36.7; O2SAT 99
[2024-11-01 22:00] VITALS: PULSE 89; RESP 18; BMI 33.7
[2024-11-01] MEDS: Atorvastatin Calcium 40 MG Tablet PO (22:41)
[2024-11-01] MEDS: Mirtazapine 15 MG Tablet PO (22:42)
[2024-11-01] MEDS: Acetaminophen 325 MG Tablet 650 MG PO (22:42)
[2024-11-02] MEDS: Enoxaparin 40 MG/0.4 ML Syringe SC (05:49)
[2024-11-02 05:57] VITALS: BP 119/69; PULSE 80; RESP 16; TEMP 36.2; O2SAT 93
[2024-11-02] MEDS: Senna/Docusate Sodium 1 Tablet 2 TABLET PO ×2 (08:19→20:05)
[2024-11-02] MEDS: Lisinopril 10 MG Tablet PO (08:19)
[2024-11-02] MEDS: Aspirin 81 MG TAB.CHEW PO (08:19)
[2024-11-02] MEDS: Polyethylene Glycol 3350 17 GM PACKET PO (08:19)
[2024-11-02] MEDS: Ensure Plus High Protein 120 ML LIQUID PO ×3 (08:19→18:17)
[2024-11-02] MEDS: Clopidogrel Bisulfate 75 MG Tablet PO (08:20)
[2024-11-02] MEDS: Pantoprazole Sodium 40 MG Tablet PO (08:20)
[2024-11-02] MEDS: Menthol/Lanolin/Calamine/Znox 113 GM Tube 1 APPLIC TOPICAL (08:21)
[2024-11-02] MEDS: Nystatin Powder 15gm Bottle 1 APPLIC TOPICAL (08:22)
[2024-11-02 08:35] VITALS: BP 116/72; PULSE 77
[2024-11-02 14:04] VITALS: BMI 33.7
[2024-11-02 17:36] VITALS: BP 135/77; PULSE 84; RESP 16; TEMP 36.5; O2SAT 98
[2024-11-02] MEDS: Mirtazapine 15 MG Tablet PO (20:05)
[2024-11-02] MEDS: Atorvastatin Calcium 40 MG Tablet PO (20:06)
[2024-11-02 20:42] VITALS: BMI 33.7
[2024-11-03 05:40] VITALS: BP 109/64; PULSE 73; RESP 18; TEMP 36.7; O2SAT 93
[2024-11-03] MEDS: Enoxaparin 40 MG/0.4 ML Syringe SC (05:42)
[2024-11-03] MEDS: Acetaminophen 325 MG Tablet 650 MG PO (05:44)
[2024-11-03] MEDS: Nystatin Powder 15gm Bottle 1 APPLIC TOPICAL ×2 (05:44→21:10)
[2024-11-03] MEDS: Menthol/Lanolin/Calamine/Znox 113 GM Tube 1 APPLIC TOPICAL ×2 (05:44→21:10)
[2024-11-03] MEDS: Lisinopril 10 MG Tablet PO (10:27)
[2024-11-03] MEDS: Senna/Docusate Sodium 1 Tablet 2 TABLET PO ×2 (10:27→21:11)
[2024-11-03] MEDS: Ensure Plus High Protein 120 ML LIQUID PO ×3 (10:27→18:14)
[2024-11-03] MEDS: Clopidogrel Bisulfate 75 MG Tablet PO (10:28)
[2024-11-03] MEDS: Pantoprazole Sodium 40 MG Tablet PO (10:28)
[2024-11-03] MEDS: Polyethylene Glycol 3350 17 GM PACKET PO (10:29)
[2024-11-03] MEDS: Aspirin 81 MG TAB.CHEW PO (10:29)
[2024-11-03 11:47] VITALS: BMI 33.7
[2024-11-03 18:00] VITALS: BP 106/53; PULSE 90; RESP 17; TEMP 36.7; O2SAT 92
[2024-11-03] MEDS: Atorvastatin Calcium 40 MG Tablet PO (21:10)
[2024-11-03] MEDS: Mirtazapine 15 MG Tablet PO (21:11)
[2024-11-04] VITALS (8 sets, daily range): BP systolic 96–141; BP diastolic 44–77; PULSE 71–128; RESP 16–17; TEMP 36.3–36.8; O2SAT 94–95; BMI 33.7
[2024-11-04] MEDS: Nystatin Powder 15gm Bottle 1 APPLIC TOPICAL ×2 (05:47→20:28)
[2024-11-04] MEDS: Menthol/Lanolin/Calamine/Znox 113 GM Tube 1 APPLIC TOPICAL ×2 (05:47→20:27)
[2024-11-04] MEDS: Enoxaparin 40 MG/0.4 ML Syringe SC (05:48)
[2024-11-04] MEDS: Aspirin 81 MG TAB.CHEW PO (07:57)
[2024-11-04] MEDS: Pantoprazole Sodium 40 MG Tablet PO (07:57)
[2024-11-04] MEDS: Clopidogrel Bisulfate 75 MG Tablet PO (07:57)
[2024-11-04] MEDS: Senna/Docusate Sodium 1 Tablet 2 TABLET PO ×2 (07:57→20:26)
[2024-11-04] MEDS: Lisinopril 10 MG Tablet PO (07:57)
[2024-11-04] MEDS: Polyethylene Glycol 3350 17 GM PACKET PO (07:58)
[2024-11-04] MEDS: Ensure Plus High Protein 120 ML LIQUID PO ×3 (07:58→17:10)
--- NOTE | 2024-11-04 09:26 | PCM.PROGNOTE ---
Subjective Subjective Afebrile VSS -blood pressure is consistently within goal. Heart rate is within normal limits. Maintaining appropriate oxygen saturation on RA Oral intake - FOOD mostly good FLUIDS good Having regular bowel movements now. Discussed with nursing - no problems that need addressed. Meehan was reinserted for urine retention on Monday. Reviewed the THERAPY notes Medication list reviewed. Feeling depressed. Sharing this with me and the therapists this morning. Tells me that she is having a hard time sleeping at night. Has a hard time going to sleep and then has trouble staying asleep. Wanting to know when she will regain the use of the LUE. Tells me that she still does not have much of an appetite but, she is making herself eat. No daytime drowsiness. Denies chest pain, palpitations, lightheadedness, nausea/vomiting/abdominal pain, suprapubic pain. She has some tingling in the LLE and the LUE. No movement in the LUE but, has a shoulder shrug now and it is getting stronger. Ambulated 12' X 3 today at the wall rail. Scissoring with the LLE......improved with her watching the L eg to advance and this helped with the scissoring. Objective Data Objective Data Vital Signs: Vital Signs Temp Pulse Resp BP Pulse Ox O2 Del Method 97.3 F L 91 16 117/67 94 Room Air 11/04/24 05:50 11/04/24 05:50 11/04/24 05:50 11/04/24 05:50 11/04/24 05:50 11/04/24 05:50 Oxygen Delivery Method Room Air Weight: 167 lb 1.766 oz Body Mass Index (BMI) 33.7 Intake & Output: Intake and Output for Last 24 Hours 11/02/24 11/03/24 11/04/24 23:59 23:59 23:59 Intake Total 3350 / 3350 2620 / 2620 1160 / 1160 Output Total 3450 / 3450 3650 / 3650 800 / 800 Balance -100 / -100 -1030 / -1030 360 / 360 Lab / Micro Data 10/30/24 05:34 10/30/24 05:34 Micro: Microbiology 10/22/24 11:00 Urine Catheter - Catheter Urine Culture - Final Presumptive E. coli Social Homelessness:: Sheltered Physical Exam Const alert and oriented x3 Constitutional Narrative: Making good eye contact. Seems discouraged but, she is very cooperative and she is doing everything that is asked of her by therapy. General Appearance: cooperative HEENT Mouth: dry mucous membranes Resp normal respiratory effort Resp Narrative: CTA after a few deep breaths. No conversational dyspnea. Not tachypneic. No accessory muscle use. Cardio regular rate, regular rhythm and no gallops Cardio Narrative: No ectopy. Resting heart rate is a little on the high side but less than 100. I suspect this is secondary to intravascular volume depletion. Encouraged increased fluid intake. GI normal to inspection, nondistended, normoactive bowel sounds, soft to palpation and non-tender GI Narrative: Having regular bowel movements. Extremity Extremity Narrative: No true calf tenderness. She does complain of some tingling in the left foot and calf. There is no peripheral edema. No pain with compression of the calf. Skin Rashes: no rashes Neuro Neuro Narrative: Facial droop is less notable. Fair shoulder shrug on the Left today. No movement of the LUE. Psych Appearance: appropriate Attitude: No agitated Activity / Motor Behavior: Negative for restless Mood & Affect: depressed Thought Content: No suicidality Assessment & Plan Assessment/Plan (1) Debility: (2) Acute right arterial ischemic stroke, MCA (middle cerebral artery): (3) Left-sided neglect: (4) Partial hemianopia: (5) Facial droop: (6) Left-sided weakness: (7) Urine retention: (8) Fecal incontinence: QUALIFIERS: Fecal incontinence type: full incontinence of feces Qualified Code(s): R15.9 - Full incontinence of feces (9) Depression: QUALIFIERS: Depression Type: reactive depression Qualified Code(s): F32.9 - Major depressive disorder, single episode, unspecified (10) Dyslipidemia: (11) Acute cystitis: QUALIFIERS: Hematuria presence: without hematuria Qualified Code(s): N30.00 - Acute cystitis without hematuria (12) Thyroid nodule incidentally noted on imaging study: (13) HTN (hypertension): (14) Constipation: QUALIFIERS: Constipation type: unspecified constipation type Qualified Code(s): K59.00 - Constipation, unspecified (15) Tachycardia: PLAN: This occurs with exertion........Good fluid intake. It takes a lot of effort for her to do therapy. PLAN: Plan 1. Continue therapy 2. CBC and BMP in the AM. 3. Orthostatic vital signs today. The BP did not significantly change but, the HR went from 83 lying down to 118 sitting to 128 standing. Standing requires a lot of exertion and her muscles in her legs were quivering per nursing. They could not comment on whether the heart rate was regular or not. She does have a heart monitor in place. TSH was recently normal. Currently taking lisinopril 10 mg daily for hypertension. Will add Lopressor 12.5 mg BID and continue to monitor the BP closely. Decrease lisinopril to 5 mg daily and hold if the systolic is less than 110. Hold Lopressor for heart rate less than 60. 4. Increase the Remeron to 22.5 mg nightly 5. consider adding Wellbutrin XL 150 mg daily to the current drug regimen if the increase in the Remeron is not effective. 6. Plan another voiding trial the end of the week. 7. Will need SNF at discharge. Charges/Coding Visit Charges Inpatient E&M: 76926 Subs Hosp L2
--- NOTE | 2024-11-04 10:52 | CASEMGMT ---
Social Work SW spoke with disability services coordinator at [facility]. Pt dc date is set for 11/13 and [facility] is not able to guarantee a bed at that time. SW to follow up with [facility] later in the week to determine bed availability. CHIQUI Haq
[2024-11-04] MEDS: Metoprolol Tartrate 25 MG Tablet 12.5 MG PO ×2 (12:32→20:28)
[2024-11-04] MEDS: Mirtazapine 15 MG Tablet 22.5 MG PO (20:27)
[2024-11-04] MEDS: Atorvastatin Calcium 40 MG Tablet PO (20:27)
[2024-11-05] MEDS: Enoxaparin 40 MG/0.4 ML Syringe SC (05:09)
[2024-11-05] MEDS: Menthol/Lanolin/Calamine/Znox 113 GM Tube 1 APPLIC TOPICAL ×2 (05:10→23:17)
[2024-11-05] MEDS: Nystatin Powder 15gm Bottle 1 APPLIC TOPICAL ×2 (05:10→23:17)
[2024-11-05 05:20] VITALS: BP 104/56; PULSE 74; RESP 16; TEMP 36.3; O2SAT 93
[2024-11-05 05:57] LABS: Hematocrit 44.7 % (37-47); Hemoglobin 14.6 g/dL (12.0-15.0); Mean Corp Hgb Conc 32.7 g/dL (32-36); Mean Platelet Vol. 10.1 fl (6.2-12.0); Platelet Count 264 K/mm3 (150-450); RBC Distribution Width CV 12.8 % (11.6-14.6); RBC Distribution Width SD 43.6 fl (35.1-43.9); Red Blood Count 4.86 M/mm3 (4.2-5.4); White Blood Count 8.9 K/mm3 (4.4-11.0)
[2024-11-05 06:31] LABS: Anion Gap 4 (5-15); BUN 18 mg/dL (7-18); BUN/Creat Ratio 19.9 RATIO (10-20); Calcium,Total 9.4 mg/dL (8.5-10.1); Chloride 104 mmol/L (98-107); EST Glomerular Filtration Rate 64 mL/min (>60); Est Glom Filt Rate - Afr Amer 77 mL/min (>60); Estimated Creatinine Clearance 46.86 ml/min; Glucose 93 mg/dL (74-106); Potassium 4.3 mmol/L (3.5-5.1); Sodium Level 136 mmol/L (136-145)
[2024-11-05 08:07] VITALS: PULSE 74
[2024-11-05] MEDS: Lisinopril 5 MG Tablet PO (08:07)
[2024-11-05] MEDS: Metoprolol Tartrate 25 MG Tablet 12.5 MG PO ×2 (08:07→23:25)
[2024-11-05] MEDS: Pantoprazole Sodium 40 MG Tablet PO (08:07)
[2024-11-05] MEDS: Senna/Docusate Sodium 1 Tablet 2 TABLET PO ×2 (08:17→23:21)
[2024-11-05] MEDS: Aspirin 81 MG TAB.CHEW PO (08:17)
[2024-11-05] MEDS: Clopidogrel Bisulfate 75 MG Tablet PO (08:17)
[2024-11-05] MEDS: Polyethylene Glycol 3350 17 GM PACKET PO (08:18)
[2024-11-05] MEDS: Ensure Plus High Protein 120 ML LIQUID PO ×3 (08:18→18:30)
[2024-11-05 10:00] VITALS: BP 95/40; PULSE 68
[2024-11-05 11:45] VITALS: BMI 33.7
--- NOTE | 2024-11-05 12:21 | PN_ITS ---
Subjective Subjective Afebrile VSS -blood pressure over the past 24 hours has ranged from 95/42 112/52. Heart rate is better today and has ranged from 68-87 since last night at 6 PM. Lopressor 12.5 mg twice daily was added to the drug regimen yesterday and lisinopril was decreased to 5 mg. Maintaining appropriate oxygen saturation on RA Oral intake - FOOD variable. She took only 25 to 49% of her lunch and supper yesterday but ate 75 to 100% of her breakfast this morning. She maintains good fluid intake. FLUIDS good Discussed with nursing - no problems that need addressed Reviewed the THERAPY notes Medication list reviewed. Yana tells me she slept well last night. Appetite is still poor but she is doing her best to take enough calories/protein. She denies cephalgia, lightheadedness, vertigo, chest pain, shortness of breath, cough, palpitations, nausea/vomiting/epigastric pain and calf pain. All lab drawn this morning was personally reviewed. The CBC is normal. Hemoglobin is stable at 14.6. Sodium is normal at 136 today and the potassium is 4.3. BUN is stable at 18 and the creatinine today is 0.9 which is within her baseline. Calcium is normal. Objective Data Objective Data Vital Signs: Vital Signs Temp Pulse Resp BP Pulse Ox O2 Del Method 97.4 F L 68 16 95/40 L 93 Room Air 11/05/24 05:20 11/05/24 10:00 11/05/24 05:20 11/05/24 10:00 11/05/24 05:20 11/05/24 05:20 Oxygen Delivery Method Room Air Weight: 167 lb 1.766 oz Body Mass Index (BMI) 33.7 Intake & Output: Intake and Output for Last 24 Hours 11/03/24 11/04/24 11/05/24 23:59 23:59 23:59 Intake Total 2620 / 2620 1500 / 1500 960 / 960 Output Total 3650 / 3650 1650 / 1650 525 / 525 Balance -1030 / -1030 -150 / -150 435 / 435 Lab / Micro Data 11/05/24 05:35 11/05/24 05:35 Labs: Laboratory Results - last 24 hr 11/05/24 05:35: WBC 8.9, RBC 4.86, Hgb 14.6, Hct 44.7, MCV 92.0, MCH 30.0, MCHC 32.7, RDW Std Deviation 43.6, RDW Coeff of Tam 12.8, Plt Count 264, MPV 10.1, Sodium 136, Potassium 4.3, Chloride 104, Carbon Dioxide 29.0, Anion Gap 4 L, BUN 18, Creatinine 0.90, Estim Creat Clear Calc 46.86, Est GFR (MDRD) Af Amer 77, Est GFR (MDRD) Non-Af 64, BUN/Creatinine Ratio 19.9, Glucose 93, Calcium 9.4 Micro: Microbiology 10/22/24 11:00 Urine Catheter - Catheter Urine Culture - Final Presumptive E. coli Social Homelessness:: Sheltered Physical Exam Const alert and oriented x3 General Appearance: cooperative Resp normal respiratory effort Resp Narrative: CTA after a few deep breaths. No conversational dyspnea. Not tachypneic. No accessory muscle use. Cardio regular rate, regular rhythm and no gallops Cardio Narrative: Tachycardia has improved with the addition of Lopressor 12.5 mg twice daily to the drug regimen. GI normal to inspection, nondistended, normoactive bowel sounds, soft to palpation and non-tender GI Narrative: Having regular bowel movements. Skin Rashes: no rashes Assessment & Plan Assessment/Plan (1) Debility: (2) Acute right arterial ischemic stroke, MCA (middle cerebral artery): (3) Left-sided neglect: (4) Partial hemianopia: (5) Facial droop: (6) Left-sided weakness: (7) Urine retention: (8) Fecal incontinence: QUALIFIERS: Fecal incontinence type: full incontinence of feces Q ualified Code(s): R15.9 - Full incontinence of feces (9) Depression: QUALIFIERS: Depression Type: reactive depression Qualified Code(s): F32.9 - Major depressive disorder, single episode, unspecified (10) Dyslipidemia: (11) Acute cystitis: QUALIFIERS: Hematuria presence: without hematuria Qualified Code(s): N30.00 - Acute cystitis without hematuria (12) Thyroid nodule incidentally noted on imaging study: (13) HTN (hypertension): (14) Constipation: QUALIFIERS: Constipation type: unspecified constipation type Q ualified Code(s): K59.00 - Constipation, unspecified (15) Tachycardia: PLAN: Plan 1. Continue therapy 2. hold Lisinopril if the BP is less than 110 systolic Charges/Coding Visit Charges Inpatient E&M: 85837 Subs Hosp L1
[2024-11-05 17:08] VITALS: BP 116/64; PULSE 76; RESP 15
--- NOTE | 2024-11-05 18:13 | CASEMGMT ---
Social Work WVM requested updated clinicals. SW sent via [email or web address]. Adelaida Mcclelland, PATIENT PLACEMENT COORDINATOR FINANCIAL SERVICES TECHNICIAN
[2024-11-05 22:45] VITALS: BP 109/54; PULSE 78; PULSE 87; RESP 16; TEMP 36.3; O2SAT 92; BMI 33.7
[2024-11-05] MEDS: Atorvastatin Calcium 40 MG Tablet PO (23:18)
[2024-11-05] MEDS: Mirtazapine 15 MG Tablet 22.5 MG PO (23:19)
[2024-11-05] MEDS: Acetaminophen 325 MG Tablet 650 MG PO (23:19)
[2024-11-05 23:25] VITALS: BP 109/54; PULSE 78
[2024-11-06 06:00] VITALS: BP 116/51; PULSE 67; RESP 18; TEMP 36.3; O2SAT 96
[2024-11-06] MEDS: Enoxaparin 40 MG/0.4 ML Syringe SC (07:04)
[2024-11-06] MEDS: Nystatin Powder 15gm Bottle 1 APPLIC TOPICAL ×2 (07:04→20:30)
[2024-11-06] MEDS: Menthol/Lanolin/Calamine/Znox 113 GM Tube 1 APPLIC TOPICAL ×2 (07:05→20:30)
[2024-11-06 08:03] VITALS: BP 116/51; PULSE 67
[2024-11-06] MEDS: Lisinopril 5 MG Tablet PO (08:03)
[2024-11-06] MEDS: Metoprolol Tartrate 25 MG Tablet 12.5 MG PO ×2 (08:03→20:35)
[2024-11-06] MEDS: Ensure Plus High Protein 120 ML LIQUID PO ×3 (08:04→17:40)
[2024-11-06] MEDS: Clopidogrel Bisulfate 75 MG Tablet PO (08:08)
[2024-11-06] MEDS: Pantoprazole Sodium 40 MG Tablet PO (08:08)
[2024-11-06] MEDS: Aspirin 81 MG TAB.CHEW PO (08:08)
[2024-11-06] MEDS: Polyethylene Glycol 3350 17 GM PACKET PO (08:08)
[2024-11-06] MEDS: Senna/Docusate Sodium 1 Tablet 2 TABLET PO ×2 (08:08→20:29)
[2024-11-06 10:00] VITALS: BP 119/53; PULSE 68
[2024-11-06 16:51] VITALS: BMI 33.7
[2024-11-06 17:48] VITALS: BP 120/60; PULSE 85; RESP 14; TEMP 36.6; O2SAT 97
[2024-11-06 20:00] VITALS: PULSE 85; RESP 14; O2SAT 97; BMI 33.7
[2024-11-06] MEDS: Atorvastatin Calcium 40 MG Tablet PO (20:29)
[2024-11-06] MEDS: Mirtazapine 15 MG Tablet 22.5 MG PO (20:29)
[2024-11-06 20:35] VITALS: BP 120/58; PULSE 78
--- NOTE | 2024-11-06 23:32 | NURSING ---
2229 pt reports that she is not getting enough air when breathing. sp02 was 99% on ra and lungs were clear to auscultation when clinical findings were completed earlier at 1999. pt was repositioned in the bed in high fowlers and temperature to the room was decreased. 2299 staff went to check on pt several times, pt respirations were even and non-labored, pt reports that she is feeling a little better but couldn't sleep now and staff encouraged pt to find something to watch on tv 2329 staff to check on pt and was found to have her light out and tv off with hob lowered
[2024-11-07 06:00] VITALS: BP 115/61; PULSE 80; RESP 16; TEMP 36.6; O2SAT 94
[2024-11-07] MEDS: Enoxaparin 40 MG/0.4 ML Syringe SC (06:17)
[2024-11-07] MEDS: Menthol/Lanolin/Calamine/Znox 113 GM Tube 1 APPLIC TOPICAL ×2 (06:18→22:33)
[2024-11-07] MEDS: Pantoprazole Sodium 40 MG Tablet PO (07:59)
[2024-11-07] MEDS: Polyethylene Glycol 3350 17 GM PACKET PO (07:59)
[2024-11-07] MEDS: Ensure Plus High Protein 120 ML LIQUID PO ×3 (07:59→16:59)
[2024-11-07] MEDS: Aspirin 81 MG TAB.CHEW PO (07:59)
[2024-11-07] MEDS: Clopidogrel Bisulfate 75 MG Tablet PO (07:59)
[2024-11-07] MEDS: Lisinopril 5 MG Tablet PO (07:59)
[2024-11-07 08:00] VITALS: PULSE 80
[2024-11-07] MEDS: Metoprolol Tartrate 25 MG Tablet 12.5 MG PO ×2 (08:00→22:29)
[2024-11-07] MEDS: Senna/Docusate Sodium 1 Tablet 2 TABLET PO ×2 (08:00→22:29)
--- NOTE | 2024-11-07 11:37 | PN_ITS ---
Subjective Subjective Yana was seen on team rounds today. Family was present in the room. Afebrile VSS -blood pressures are within goal and the heart rate is within normal limits. Maintaining appropriate oxygen saturation on RA Oral intake - FOOD appetite has improved and she has consumed 75 to 100% of all meals except 1 over the past 48 hours. FLUIDS good Discussed with nursing -she complained of shortness of breath tonight nursing. Pulse ox was 97% on room air at the time and her respiratory rate was 14. Reviewed the THERAPY notes-was able to ambulate with a hemiwalker today Medication list reviewed. Yana denies lightheadedness, cephalgia, palpitations, shortness of breath, cough, chest pain, nausea/vomiting/abdominal pain, suprapubic pain and calf pain. She had a very brief episode of feeling like she could not get a deep breath last evening but it passed rather quickly and she has had no recurrence today. She thinks it may have been an anxiety attack. She was able to sleep well last night. Appetite and insomnia have both improved with the increase in Remeron. No daytime drowsiness. Objective Data Objective Data Vital Signs: Vital Signs Temp Pulse Resp BP Pulse Ox O2 Del Method 97.8 F 80 16 115/61 94 Room Air 11/07/24 06:00 11/07/24 08:00 11/07/24 06:00 11/07/24 06:00 11/07/24 06:00 11/07/24 06:00 Oxygen Delivery Method Room Air Weight: 167 lb 1.766 oz Body Mass Index (BMI) 33.7 Intake & Output: Intake and Output for Last 24 Hours 11/05/24 11/06/24 11/07/24 23:59 23:59 23:59 Intake Total 1760 / 1760 2140 / 2140 1000 / 1000 Output Total 2225 / 2225 1775 / 1775 1250 / 1250 Balance -465 / -465 365 / 365 -250 / -250 Lab / Micro Data 11/05/24 05:35 11/05/24 05:35 Micro: Microbiology 10/22/24 11:00 Urine Catheter - Catheter Urine Culture - Final Presumptive E. coli Social Homelessness:: Sheltered Physical Exam Const alert and oriented x3 General Appearance: cooperative Resp normal respiratory effort Resp Narrative: CTA after a few deep breaths. No conversational dyspnea. Not tachypneic. No accessory muscle use. Cardio regular rate, regular rhythm and no gallops GI normal to inspection, nondistended, normoactive bowel sounds, soft to palpation and non-tender GI Narrative: Having regular bowel movements. Skin Rashes: no rashes Psych Psych Narrative: Family has noticed she seems more upbeat. She is looking forward to having a visit from her boxer, Burton, over the weekend. Smiling today. She is encouraged by the fact that she was able to use a hemiwalker today. Appearance: appropriate Assessment & Plan Assessment/Plan (1) Debility: (2) Acute right arterial ischemic stroke, MCA (middle cerebral artery): (3) Left-sided neglect: (4) Partial hemianopia: (5) Facial droop: (6) Left-sided weakness: (7) Urine retention: (8) Fecal incontinence: QUALIFIERS: Fecal incontinence type: full incontinence of feces Q ualified Code(s): R15.9 - Full incontinence of feces (9) Depression: QUALIFIERS: Depression Type: reactive depression Qualified Code(s): F32.9 - Major depressive disorder, single episode, unspecified (10) Dyslipidemia: (11) Acute cystitis: QUALIFIERS: Hematuria presence: without hematuria Qualified Code(s): N30.00 - Acute cystitis without hematuria (12) Thyroid nodule incidentally noted on imaging study: (13) HTN (hypertension): (14) Constipation: QUALIFIERS: Constipation type: unspecified constipation type Q ualified Code(s): K59.00 - Constipation, unspecified (15) Tachycardia: PLAN: Plan 1. Continue therapy 2. Blood pressure is well-controlled and within goal on the current antihypertensive regimen. Addition of Lopressor 12.5 mg twice daily to lisinopril has significantly improved tachycardia with exertion. 3. Voiding trial on Monday. Charges/Coding Visit Charges Inpatient E&M: 52737 Subs Hosp L2
[2024-11-07 13:18] VITALS: BMI 33.7
--- NOTE | 2024-11-07 13:37 | CASEMGMT ---
Team meeting held with pt, pts dgt and pt son present. PT/OT/ST/SN provided updates on pt progress. Pt is making gains with therapy, however is not yet ready to return home alone. SW updated that Medicare approved 23 days and that discharge date is 11/13. Previously pt and family had requested continued half-way stay at [facility]. SW made referral to [facility] and they are able to accept pt on Monday. Pt and family notified and are agreeable to this discharge plan. SW to continue to follow for dc planning. DC Date: 11/13 DC Disposition: [facility], skilled level of care CHIQUI Haq
[2024-11-07 17:00] VITALS: BP 111/57; PULSE 91; RESP 17; TEMP 36.6
[2024-11-07 22:15] VITALS: PULSE 87; RESP 17; O2SAT 99; BMI 33.7
[2024-11-07 22:29] VITALS: BP 113/55; PULSE 87
[2024-11-07] MEDS: Atorvastatin Calcium 40 MG Tablet PO (22:30)
[2024-11-07] MEDS: Mirtazapine 15 MG Tablet 22.5 MG PO (22:30)
[2024-11-07] MEDS: Nystatin Powder 15gm Bottle 1 APPLIC TOPICAL (22:33)
[2024-11-08 06:00] VITALS: BP 126/55; PULSE 96; RESP 15; TEMP 36.4; O2SAT 15
[2024-11-08] MEDS: Enoxaparin 40 MG/0.4 ML Syringe SC (06:58)
[2024-11-08] MEDS: Menthol/Lanolin/Calamine/Znox 113 GM Tube 1 APPLIC TOPICAL ×2 (06:59→21:57)
[2024-11-08 07:00] VITALS: BMI 33.7
[2024-11-08 08:22] VITALS: PULSE 96
[2024-11-08] MEDS: Metoprolol Tartrate 25 MG Tablet 12.5 MG PO ×2 (08:22→21:58)
[2024-11-08] MEDS: Lisinopril 5 MG Tablet PO (08:23)
[2024-11-08] MEDS: Pantoprazole Sodium 40 MG Tablet PO (08:23)
[2024-11-08] MEDS: Clopidogrel Bisulfate 75 MG Tablet PO (08:23)
[2024-11-08] MEDS: Ensure Plus High Protein 120 ML LIQUID PO ×3 (08:23→17:56)
[2024-11-08] MEDS: Senna/Docusate Sodium 1 Tablet 2 TABLET PO ×2 (08:23→22:01)
[2024-11-08] MEDS: Aspirin 81 MG TAB.CHEW PO (08:23)
[2024-11-08] MEDS: Polyethylene Glycol 3350 17 GM PACKET PO (08:23)
[2024-11-08 12:22] VITALS: BMI 33.7
[2024-11-08 18:00] VITALS: BP 115/59; PULSE 78; RESP 16; TEMP 36.5; O2SAT 96
[2024-11-08 21:58] VITALS: BP 127/67; PULSE 93
[2024-11-08] MEDS: Atorvastatin Calcium 40 MG Tablet PO (21:58)
[2024-11-08] MEDS: Mirtazapine 15 MG Tablet 22.5 MG PO (22:00)
[2024-11-09 02:01] VITALS: BMI 33.7
[2024-11-09 06:11] VITALS: BP 120/54; PULSE 78; RESP 15; TEMP 36.7; O2SAT 95
[2024-11-09] MEDS: Menthol/Lanolin/Calamine/Znox 113 GM Tube 1 APPLIC TOPICAL ×2 (06:11→20:12)
[2024-11-09] MEDS: Enoxaparin 40 MG/0.4 ML Syringe SC (06:11)
[2024-11-09] MEDS: Nystatin Powder 15gm Bottle 1 APPLIC TOPICAL ×2 (06:23→20:12)
[2024-11-09] MEDS: Ensure Plus High Protein 120 ML LIQUID PO ×3 (08:26→15:42)
[2024-11-09] MEDS: Senna/Docusate Sodium 1 Tablet 2 TABLET PO ×2 (08:26→20:11)
[2024-11-09] MEDS: Polyethylene Glycol 3350 17 GM PACKET PO (08:26)
[2024-11-09 08:27] VITALS: BP 120/54; PULSE 78
[2024-11-09] MEDS: Lisinopril 5 MG Tablet PO (08:27)
[2024-11-09] MEDS: Pantoprazole Sodium 40 MG Tablet PO (08:27)
[2024-11-09] MEDS: Clopidogrel Bisulfate 75 MG Tablet PO (08:27)
[2024-11-09] MEDS: Metoprolol Tartrate 25 MG Tablet 12.5 MG PO ×2 (08:27→20:11)
[2024-11-09] MEDS: Aspirin 81 MG TAB.CHEW PO (08:28)
[2024-11-09 16:27] VITALS: BMI 33.7
[2024-11-09 18:00] VITALS: BP 106/38; PULSE 80; RESP 16; TEMP 36.7; O2SAT 94
[2024-11-09 19:53] VITALS: BP 124/56; PULSE 74
[2024-11-09] MEDS: Atorvastatin Calcium 40 MG Tablet PO (20:10)
[2024-11-09 20:11] VITALS: PULSE 74
[2024-11-09] MEDS: Mirtazapine 15 MG Tablet 22.5 MG PO (20:12)
[2024-11-09 23:16] VITALS: BMI 33.7
[2024-11-10] MEDS: Menthol/Lanolin/Calamine/Znox 113 GM Tube 1 APPLIC TOPICAL ×2 (04:26→20:19)
[2024-11-10] MEDS: Enoxaparin 40 MG/0.4 ML Syringe SC (04:26)
[2024-11-10] MEDS: Nystatin Powder 15gm Bottle 1 APPLIC TOPICAL ×2 (04:27→20:19)
[2024-11-10 04:36] VITALS: BP 129/61; PULSE 76; RESP 14; TEMP 36.7; O2SAT 95
[2024-11-10] MEDS: Senna/Docusate Sodium 1 Tablet 2 TABLET PO ×2 (08:53→20:17)
[2024-11-10] MEDS: Ensure Plus High Protein 120 ML LIQUID PO ×3 (08:54→16:47)
[2024-11-10] MEDS: Aspirin 81 MG TAB.CHEW PO (08:54)
[2024-11-10] MEDS: Pantoprazole Sodium 40 MG Tablet PO (08:54)
[2024-11-10] MEDS: Polyethylene Glycol 3350 17 GM PACKET PO (08:57)
[2024-11-10 09:02] VITALS: PULSE 97
[2024-11-10] MEDS: Metoprolol Tartrate 25 MG Tablet 12.5 MG PO ×2 (09:02→20:17)
[2024-11-10 18:00] VITALS: BP 117/61; PULSE 78; RESP 17; TEMP 36.2; O2SAT 96
[2024-11-10 20:15] VITALS: BP 134/54; PULSE 79
[2024-11-10 20:17] VITALS: PULSE 79
[2024-11-10] MEDS: Atorvastatin Calcium 40 MG Tablet PO (20:19)
[2024-11-10] MEDS: Mirtazapine 15 MG Tablet 22.5 MG PO (20:22)
[2024-11-10 22:20] VITALS: BMI 33.7
[2024-11-11] VITALS (7 sets, daily range): BP systolic 101–140; BP diastolic 38–61; PULSE 68–86; RESP 16–18; TEMP 36.4–36.9; O2SAT 93–95
[2024-11-11] MEDS: Menthol/Lanolin/Calamine/Znox 113 GM Tube 1 APPLIC TOPICAL ×2 (05:21→20:49)
[2024-11-11] MEDS: Enoxaparin 40 MG/0.4 ML Syringe SC (05:21)
[2024-11-11] MEDS: Nystatin Powder 15gm Bottle 1 APPLIC TOPICAL ×2 (05:22→20:50)
[2024-11-11] MEDS: Polyethylene Glycol 3350 17 GM PACKET PO (08:29)
[2024-11-11] MEDS: Senna/Docusate Sodium 1 Tablet 2 TABLET PO ×2 (08:29→20:49)
[2024-11-11] MEDS: Lisinopril 5 MG Tablet PO (08:29)
[2024-11-11] MEDS: Pantoprazole Sodium 40 MG Tablet PO (08:29)
[2024-11-11] MEDS: Metoprolol Tartrate 25 MG Tablet 12.5 MG PO ×2 (08:30→20:49)
[2024-11-11] MEDS: Aspirin 81 MG TAB.CHEW PO (08:30)
[2024-11-11] MEDS: Ensure Plus High Protein 120 ML LIQUID PO ×3 (08:34→16:28)
--- NOTE | 2024-11-11 11:17 | PCM.PROGNOTE ---
Subjective Subjective Afebrile heart rate is within normal limits. Maintaining appropriate oxygen saturation on RA Oral intake - FOOD good FLUIDS has been good until yesterday. I suspect that the fluid intake is not accurate from yesterday. Discussed with nursing - no problems that need addressed Reviewed the THERAPY notes Medication list reviewed. Sleeping well at night and has a good appetite. Denies cephalgia, lightheadedness, chest pain, shortness of breath, palpitations, nausea/vomiting/abdominal pain, suprapubic pain and calf tenderness. Failed the last voiding trial. Constipation has resolved and she is now having regular BM's. Objective Data Objective Data Vital Signs: Vital Signs Temp Pulse Resp BP Pulse Ox O2 Del Method O2 Flow Rate 98.0 F 82 18 140/57 H 93 Room Air 99 11/11/24 05:30 11/11/24 08:40 11/11/24 08:40 11/11/24 08:30 11/11/24 08:40 11/11/24 08:40 11/07/24 17:00 Oxygen Flow Rate (L/min) 99 Oxygen Delivery Method Room Air Weight: 167 lb 8.821 oz Body Mass Index (BMI) 33.7 Intake & Output: Intake and Output for Last 24 Hours 11/09/24 11/10/24 11/11/24 23:59 23:59 23:59 Intake Total 1860 / 1860 880 / 1280 600 / 600 Output Total 1950 / 1950 1150 / 1700 950 / 950 Balance -90 / -90 -270 / -420 -350 / -350 Lab / Micro Data 11/05/24 05:35 11/05/24 05:35 Micro: Microbiology 10/22/24 11:00 Urine Catheter - Catheter Urine Culture - Final Presumptive E. coli Social Homelessness:: Sheltered Physical Exam Const alert and oriented x3 General Appearance: cooperative Resp normal respiratory effort Resp Narrative: CTA after a few deep breaths. No conversational dyspnea. Not tachypneic. No accessory muscle use. Cardio regular rate, regular rhythm and no gallops GI normal to inspection, nondistended, normoactive bowel sounds, soft to palpation and non-tender GI Narrative: Having regular bowel movements. Skin Rashes: no rashes Neuro Neuro Narrative: Facial droop is less noticeable and she is articulating better. Using a hemiwalker to ambulate now however she is still max assist 1 with a wheelchair follow. Barriers to the left and leans heavily on the therapist. Assessment & Plan Assessment/Plan (1) Debility: (2) Acute right arterial ischemic stroke, MCA (middle cerebral artery): (3) Left-sided neglect: (4) Partial hemianopia: (5) Facial droop: (6) Left-sided weakness: (7) Urine retention: (8) Fecal incontinence: QUALIFIERS: Fecal incontinence type: full incontinence of feces Qualified Code(s): R15.9 - Full incontinence of feces (9) Depression: QUALIFIERS: Depression Type: reactive depression Qualified Code(s): F32.9 - Major depressive disorder, single episode, unspecified (10) Dyslipidemia: (11) Acute cystitis: QUALIFIERS: Hematuria presence: without hematuria Qualified Code(s): N30.00 - Acute cystitis without hematuria (12) Thyroid nodule incidentally noted on imaging study: (13) HTN (hypertension): QUALIFIERS: Hypertension type: primary hypertension Qualified Code(s): I10 - Essential (primary) hypertension (14) Constipation: QUALIFIERS: Constipation type: unspecified constipation type Qualified Code(s): K59.00 - Constipation, unspecified (15) Tachycardia: PLAN: Plan 1. Continue therapy 2. Recheck a CBC without differential and a CMP in the a.m. 3. Recheck a blood pressure now 4. Voiding trial in the AM. If she fails this voiding trial may try tamsulosin 0.4 mg daily prior to transfer to halfway 5. Plan transfer to [facility] on 11/13/24 for additional therapy. 6. Check a UA today. Charges/Coding Visit Charges Inpatient E&M: 74846 Subs Hosp L1
--- NOTE | 2024-11-11 15:18 | CASEMGMT ---
Addendum entered by Adelaida Mcclelland 11/13/24 11:04: 7000 completed. DC paperwork sent to [facility]. Addendum entered by Adelaida Mcclelland 11/13/24 08:51: Correction: transport scheduled for 1300. SW [facility]oned [facility] confirm 1300. Updated nursing and nursing had confirmed 1300. Original Note: Social Work SW phoned [facility] to schedule w/c transport for 1500. - SW phoned dtr to confirm all DC plans and update on transport time. Dtr has no concerns. - HONG confirmed DC plans with [facility]. - 7000 started. TIMOTHY AriasW
--- NOTE | 2024-11-11 17:07 | NURSING ---
PT HAS CLOTS IN URINE IN FORMAN BAG. AWARE. DO NOT REMOVE FORMAN TILL TALK TO ON 11/12/24.
[2024-11-11 18:09] LABS: Bacteria 0 SEEN /hpf (None Seen); Mucous, Urine 0 SEEN /hpf (<or=2+); Squamous Epithelial Cells - UA 0 SEEN /hpf (5-10)
[2024-11-11 18:13] LABS: Color, Urine Yellow (Yellow); Glucose, Dipstick Normal (Normal); Ketone-Dipstick Negative (Negative); Leukocyte Esterase-Dipstick 100 /ul (Negative); Nitrite-Dipstick Negative (Negative); Occult Blood-Urine 250 /ul (Negative); Protein-Dipstick 30 mg/dl (Negative); Specific Gravity, Urine 1.005 (1.002-1.030); Urine Bilirubin Dipstick Negative (Negative); Urine Clarity Clear (Clear); Urine Urobilinogen Normal (Normal)
[2024-11-11 18:23] LABS: Red Blood Cells-Urine 0-5 SEEN /hpf (0-5); White Blood Cells 0-5 SEEN /hpf (0-5)
[2024-11-11] MEDS: Atorvastatin Calcium 40 MG Tablet PO (20:49)
[2024-11-11] MEDS: Mirtazapine 15 MG Tablet 22.5 MG PO (20:50)
[2024-11-12 05:00] VITALS: BMI 33.7
[2024-11-12] MEDS: Enoxaparin 40 MG/0.4 ML Syringe SC (05:33)
[2024-11-12] MEDS: Menthol/Lanolin/Calamine/Znox 113 GM Tube 1 APPLIC TOPICAL ×2 (05:33→21:25)
[2024-11-12 05:56] VITALS: BP 131/60; PULSE 74; RESP 18; TEMP 36.8; O2SAT 92
[2024-11-12 07:11] LABS: Hematocrit 45.2 % (37-47); Hemoglobin 14.3 g/dL (12.0-15.0); Mean Corp Hgb Conc 31.6 g/dL (32-36); Mean Corpuscular Hgb 29.7 pg (27.0-32.0); Mean Platelet Vol. 10.3 fl (6.2-12.0); Platelet Count 192 K/mm3 (150-450); RBC Distribution Width CV 12.9 % (11.6-14.6); RBC Distribution Width SD 44.5 fl (35.1-43.9); Red Blood Count 4.81 M/mm3 (4.2-5.4); White Blood Count 8.6 K/mm3 (4.4-11.0)
[2024-11-12 07:42] LABS: ALB/GLOB Ratio 0.9 RATIO (0.9-2.4); AST(SGOT) 27 U/L (15-37); Alanine Aminotransfer ALT/SGPT 28 U/L (13-56); Alkaline Phosphatase 89 U/L (45-117); Anion Gap 6 (5-15); BUN 22 mg/dL (7-18); BUN/Creat Ratio 23.7 RATIO (10-20); Calcium,Total 9.5 mg/dL (8.5-10.1); Chloride 104 mmol/L (98-107); Creatinine, Serum 0.93 mg/dL (0.55-1.02); EST Glomerular Filtration Rate 62 mL/min (>60); Est Glom Filt Rate - Afr Amer 75 mL/min (>60); Estimated Creatinine Clearance 45.41 ml/min; Globulin 3.5 g/dL (2.2-4.2); Glucose 100 mg/dL (74-106); Potassium 4.2 mmol/L (3.5-5.1); Protein, Total 6.5 g/dL (6.4-8.2); Sodium Level 138 mmol/L (136-145)
[2024-11-12] MEDS: Ensure Plus High Protein 120 ML LIQUID PO ×3 (08:06→18:23)
[2024-11-12] MEDS: Polyethylene Glycol 3350 17 GM PACKET PO (08:08)
[2024-11-12 08:09] VITALS: BP 131/60; PULSE 74
[2024-11-12] MEDS: Pantoprazole Sodium 40 MG Tablet PO (08:09)
[2024-11-12] MEDS: Senna/Docusate Sodium 1 Tablet 2 TABLET PO (08:09)
[2024-11-12] MEDS: Metoprolol Tartrate 25 MG Tablet 12.5 MG PO ×2 (08:09→21:23)
[2024-11-12] MEDS: Lisinopril 5 MG Tablet PO (08:09)
[2024-11-12] MEDS: Aspirin 81 MG TAB.CHEW PO (08:09)
[2024-11-12 15:16] VITALS: BMI 33.7
--- NOTE | 2024-11-12 15:23 | PCM.TXEXTCAR ---
Diet Diet Order/Speech Therapy: 10/21/24 18:38 Diet: Regular - General Low salt and low fat. Routine Orders/Code Status Enema Type: Fleetz Enema Frequency: Daily PRN Suppository Type: Dulcolax 10mg Suppository Frequency: Daily PRN Routine Lab Work: - (CBC, BMP on 11/19/2024.) Code Status: Full Code DC O2, CPAP, BIPAP needs Home O2 Discharge instructions: No Wound(s) Rt foot- plantar surface, possible blister: Wound Type: callous Therapies Weight Bearing: Full weight bearing Extremity Affected:: Left Lower and Left Upper Physical Therapy: Eval and Treat Occupational Therapy: Eval and Treat Speech Therapy: Eval and Treat Problem/Diagnosis (1) Debility: Status: Acute Code(s): R53.81 - Other malaise Plan: MRI on 10/17/24 showed ischemic infarct in the right insular lobe and multiple scattered nodular microembolic ischemic infarcts along the right chauhan radiata, right posterior periventricular white matter and cortical gyri of the right parietal temporal operculum. On 10/18/24 she was transferred to the acute inpt rehab unit and within a few hours of admission she developed Left side hemiplegia with left side neglect and eyes were deviated right. Stat CT brain showed no intracerebral bleeding/hemorrhagic transformation. CTA was positive for large vessel occlusion of the right middle cerebral artery and she was transferred to [facility]. No intervention was done and she was transferred back to the acute inpt rehab unit at [facility] on 10/21/2024 for 3 hours of therapy daily. (2) Acute right arterial ischemic stroke, MCA (middle cerebral artery): Status: Acute Code(s): I63.511 - Cerebral infarction due to unspecified occlusion or stenosis of right middle cerebral artery (3) Left-sided neglect: Status: Acute Code(s): R41.4 - Neurologic neglect syndrome (4) Partial hemianopia: Status: Acute Code(s): H53.47 - Heteronymous bilateral field defects Plan: She had loss of vision in the left eye in the lteral/outer inferior quadrant and in the R eye in the medial inferior quadrant at admission to rehab on 10/21/24. 1 day prior to discharge from acute rehab she still has loss of vision in the left eye lateral inferior quadrant but she has intact vision in the right eye in all quadrants. (5) Facial droop: Status: Chronic Code(s): R29.810 - Facial weakness Plan: Persistent left facial droop but, has improved since admission to rehab. Dysarthria has also improved and speech now is more crisp and intelligible. (6) Left-sided weakness: Status: Chronic Code(s): R53.1 - Weakness (7) Urine retention: Status: Acute Code(s): R33.9 - Retention of urine, unspecified Plan: Failed 1 voiding trial and the Meehan was reinserted. Voiding trial on 11/12/24 (8) Fecal incontinence: Status: Resolved Code(s): R15.9 - Full incontinence of feces (9) Depression: Status: Acute Code(s): F32.A - Depression, unspecified Plan: Started on Remeron with good results. Insomnia and poor appetite have resolved. She is feeling less depressed. Would likely benefit from psychosocial counselling. (10) Dyslipidemia: Status: Chronic Code(s): E78.5 - Hyperlipidemia, unspecified Plan: She is taking Atorvastatin 40 mg daily at bedtime. LFTs were checked on 11/12/2024 and are normal. (11) Acute cystitis: Status: Acute Code(s): N30.00 - Acute cystitis without hematuria Plan: Urine culture on 10/22/2024 grew greater than 100,000 colonies of presumptive E. coli. She was treated with antibiotics. Following conclusion of antibiotics voiding trial was undertaken but she failed and the Meehan was reinserted. She had a UA done on 11/11/2024 and it showed 0-5 to WBCs with no bacteria and it was nitrite negative. Preliminary on the urine culture is 80,000-100,000 gram-positive Enterococcus species. She is afebrile with a normal white blood cell count and she denies any suprapubic pain. No indication to treat for UTI at this time. Not discharged on antibiotics. (12) Thyroid nodule incidentally noted on imaging study: Status: Chronic Code(s): E04.1 - Nontoxic single thyroid nodule Plan: An incidental finding on imaging was a 3.3 x 2.9 x 4.3 cm left thyroid nodule with mixed solid/cystic consistency. This will need to be followed up as an outpatient. Suggest she follow up with Dr. Burt for possible bx. TSH was normal at 1.36. (13) HTN (hypertension): Status: Chronic Code(s): I10 - Essential (primary) hypertension Plan: Blood pressure is well-controlled at the time of discharge from acute rehab. (14) Constipation: Status: Resolved Code(s): K59.00 - Constipation, unspecified (15) Tachycardia: Status: Resolved Code(s): R00.0 - Tachycardia, unspecified Plan: Resolved with the addition of Lopressor to the drug regimen. Plan 1. Transfer [facility] on 11/13/2024 for additional therapy 2. Recommend follow up with Dr. Burt for a thyroid bx post DC from acute rehab. 3. Repeat lipid panel in 4 weeks. Liver panel on 11/12/2024 is within normal limits on atorvastatin 40 mg daily. Allergies/Procedures Done in Hospital Allergies No Known Allergies Allergy (Verified 10/15/24 19:54) Procedures: 2-D Echocardiogram (A transthoracic echocardiogram showed left ventricular ejection fraction of 70% with no regional wall motion abnormalities. The right ventricle was normal in size and function. There was a normal right atrial size and normal left atrial size. Bubble contrast study was negative for for PFO/ASD. T) Type of Care/Length of Stay Estimated LOS: Convalescent Care Less Than 30 days Type of Care Needed: Skilled Rehab Potential: Fair Prognosis: Fair Additional Orders/Day of Discharge Additional Orders: Please make an appt for her to follow up with Dr. Burt within the next month to discuss thyroid biopsy. H&P will serve as current which was dated: 10/22/24 Day of Discharge: 11/13/24 Dietary and Speech Recommendations Dietitian Recommendations/Changes: Continue regular diet and 120ml ensure plus high protein TID with medpass. she should be on a heart healthy diet with low slat and low fat. Consult RD if changes occur in nutritional status. Reviewed and approved by Marni Wilson RDN, LD. Follow Up Care Please follow up with your Primary Care Physician in: following DC from rehab. Please Follow Up With: Horace Burt MD When: within 1 month of DC from rehab Please Follow Up With: Jordan Dolan MD When: OLEG for stroke Please Follow Up With: [facility] When: after the 30 day event moitor has been removed Discharge Plan Admission Admit Date/Time: 10/21/24 18:08 Primary Reason for Your Visit: Post stroke Debility Attending Provider: Elisa Duran Primary Care Provider: Care Physician,No Primary Instructions Additional Instructions / Restrictions: 1. Failed voiding trial on 11/12-11/13 and Meehan had to be reinserted. Flomax is being added to her drug regimen at [place]. 2. Urine grew 80,000- 100,000 colonies of Enterococcus Faecalis but, the UA had only 05 WBC's and there was no bacteria seen.. It was nitrite negative. The white blood cell count is normal at 8.6 and she is AF. The urine is clear and not cloudy. Antibiotic not started because she has asymptomatic bacteriuria. 3. I talked with the patient prior to DC about plans going forward. I do not think the left arm is going to be functional. She is ambulating up to 21' with a shirley-walker but, she is requiring max assist and still needs a WC follow. I do not see her ever being able to live independently again. We are still hopeful that the left lower extremity will continue to improve. Left side neglect has improved, she has less facial droop and dysarthria has significantly improved. Cognition is also improved. She is now continent of stool. I think she would benefit greatly from psychotherapy to discuss how to deal with the reality of her disabilities and to focus on the things she is still able to do. 4. Appts are being made for Yana to follow up with cardiology at the hospital in [place] rather than [facility] for convenience. The 30 day event monitor is to come off later this month....I believe the . She needs to see cardiology to review the results of the monitor with the pt and her family. An appt is also being made for her to follow up with Dr. Horace Burt for the thyroid nodule/biopsy. Discharge Orders/Prescriptions Prescriptions: New acetaminophen 325 mg Tablet 650 mg PO Q6H PRN PRN (Reason: Pain Score 1-10) Qty: 1 0RF magnesium hydroxide 400 mg/5 mL Suspension 30 ml PO X1 PRN (Reason: Constipation) Qty: 1 0RF lisinopril 5 mg Tablet 5 mg PO DAILY Qty: 1 0RF enoxaparin 40 mg/0.4 mL Syringe 40 mg subcut DAILY@0600 Qty: 1 0RF Ensure Plus High Protein 0.08 gram-1.5 kcal/mL Liquid 120 ml PO TIDCM Qty: 1 0RF sennosides-docusate sodium [Stimulant Laxative Plus] 8.6-50 mg Tablet 2 tab PO BID Qty: 1 0RF pantoprazole 40 mg Tablet,Delayed Release (Dr/Ec) 40 mg PO DAILY Qty: 1 0RF mirtazapine 15 mg Tablet 22.5 mg PO QHS Qty: 1 0RF metoprolol tartrate 25 mg Tablet 12.5 mg PO BID Qty: 1 0RF polyethylene glycol 3350 17 gram/dose powder 17 g PO DAILY Qty: 1 0RF tamsulosin [Flomax] 0.4 mg capsule 0.4 mg PO DAILY Qty: 1 0RF Continued aspirin 81 mg Tablet,Chewable 81 mg PO DAILYCM 30 Days Qty: 30 0RF atorvastatin 40 mg Tablet 40 mg PO QHS 30 Days Qty: 30 0RF Discontinued clopidogrel 75 mg Tablet 75 mg PO DAILY 30 Days Qty: 30 0RF lisinopril 20 mg tablet 10 mg PO DAILY Referrals / Follow Up: Champ Cruz [Other] - 12/17/24 2:30 pm ([facility] [phone]) Care Physician,No Primary [Primary Care Provider] - Disposition Disposition (needs filled in before D/C Order can be placed): [facility] (8) Fecal incontinence Qualifiers: Fecal incontinence type: full incontinence of feces Qualified Code(s): R15.9 - Full incontinence of feces (9) Depression Qualifiers: Depression Type: reactive depression Qualified Code(s): F32.9 - Major depressive disorder, single episode, unspecified (11) Acute cystitis Qualifiers: Hematuria presence: without hematuria Qualified Code(s): N30.00 - Acute cystitis without hematuria (13) HTN (hypertension) Qualifiers: Hypertension type: primary hypertension Qualified Code(s): I10 - Essential (primary) hypertension (14) Constipation Qualifiers: Constipation type: unspecified constipation type Qualified Code(s): K59.00 - Constipation, unspecified
--- NOTE | 2024-11-12 16:42 | DS.PCM_ITS ---
Providers Date of Admission: 10/21/24 Date of Discharge: 11/13/24 Primary Care Physician: No Primary Care Phys Reason For Visit: CVA Diagnosis Discharge Diagnosis (1) Debility: Status: Acute Code(s): R53.81 - Other malaise Plan: MRI on 10/17/24 showed ischemic infarct in the right insular lobe and multiple scattered nodular microembolic ischemic infarcts along the right chauhan radiata, right posterior periventricular white matter and cortical gyri of the right parietal temporal operculum. On 10/18/24 she was transferred to the acute inpt rehab unit and within a few hours of admission she developed Left side hemiplegia with left side neglect and eyes were deviated right. Stat CT brain showed no intracerebral bleeding/hemorrhagic transformation. CTA was positive for large vessel occlusion of the right middle cerebral artery and she was transferred to [facility]. No intervention was done and she was transferred back to the acute inpt rehab unit at [facility] on 10/21/2024 for 3 hours of therapy daily. (2) Acute right arterial ischemic stroke, MCA (middle cerebral artery): Status: Acute Code(s): I63.511 - Cerebral infarction due to unspecified occlusion or stenosis of right middle cerebral artery Plan: Due to chronic occlusion of the R MCA. (3) Left-sided neglect: Status: Acute Code(s): R41.4 - Neurologic neglect syndrome (4) Partial hemianopia: Status: Acute Code(s): H53.47 - Heteronymous bilateral field defects Plan: She had loss of vision in the left eye in the lteral/outer inferior quadrant and in the R eye in the medial inferior quadrant at admission to rehab on 10/21/24. 1 day prior to discharge from acute rehab she still has loss of vision in the left eye lateral inferior quadrant but she has intact vision in the right eye in all quadrants. (5) Facial droop: Status: Chronic Code(s): R29.810 - Facial weakness Plan: Persistent left facial droop but, has improved since admission to rehab. Dysarthria has also improved and speech now is more crisp and intelligible. (6) Left-sided weakness: Status: Chronic Code(s): R53.1 - Weakness (7) Urine retention: Status: Acute Code(s): R33.9 - Retention of urine, unspecified Plan: Failed 1 voiding trial and the Meehan was reinserted. Voiding trial on 11/12/24 (8) Fecal incontinence: Status: Resolved Code(s): R15.9 - Full incontinence of feces Qualifiers: Fecal incontinence type: full incontinence of feces Qualified Code(s): R15.9 - Full incontinence of feces (9) Depression: Status: Acute Code(s): F32.A - Depression, unspecified Qualifiers: Depression Type: reactive depression Qualified Code(s): F32.9 - Major depressive disorder, single episode, unspecified Plan: Started on Remeron with good results. Insomnia and poor appetite have resolved. She is feeling less depressed. Would likely benefit from psychosocial counselling. (10) Dyslipidemia: Status: Chronic Code(s): E78.5 - Hyperlipidemia, unspecified Plan: She is taking Atorvastatin 40 mg daily at bedtime. LFTs were checked on 11/12/2024 and are normal. (11) Acute cystitis: Status: Acute Code(s): N30.00 - Acute cystitis without hematuria Qualifiers: Hematuria presence: without hematuria Qualified Code(s): N30.00 - Acute cystitis without hematuria Plan: Urine culture on 10/22/2024 grew greater than 100,000 colonies of presumptive E. coli. She was treated with antibiotics. Following conclusion of antibiotics voiding trial was undertaken but she failed and the Meehan was reinserted. She had a UA done on 11/11/2024 and it showed 0-5 to WBCs with no bacteria and it was nitrite negative. Preliminary on the urine culture is 80,000-100,000 Enterococcus Faecalis. She is afebrile with a normal white blood cell count and she denies any suprapubic pain. No indication to treat for UTI at this time. Not discharged on antibiotics. Asymptomatic bacteriuria. The urine is clear (12) Thyroid nodule incidentally noted on imaging study: Status: Chronic Code(s): E04.1 - Nontoxic single thyroid nodule Plan: An incidental finding on imaging was a 3.3 x 2.9 x 4.3 cm left thyroid nodule with mixed solid/cystic consistency. She needs to get a Thyroid US as an OP and then call Dr. Burt's office to schedule and appt. (13) HTN (hypertension): Status: Chronic Code(s): I10 - Essential (primary) hypertension Qualifiers: Hypertension type: primary hypertension Qualified Code(s): I10 - Essential (primary) hypertension Plan: Blood pressure is well-controlled at the time of discharge from acute rehab. (14) Constipation: Status: Resolved Code(s): K59.00 - Constipation, unspecified Qualifiers: Constipation type: unspecified constipation type Qualified Code(s): K 59.00 - Constipation, unspecified (15) Tachycardia: Status: Resolved Code(s): R00.0 - Tachycardia, unspecified Plan: Resolved with the addition of Lopressor to the drug regimen. Plan 1. Transfer to [facility] on 11/13/2024 for additional therapy 2. Please get a thyroid US and then call Dr. burt's office to schedule and appt. Likely needs a thyroid biopsy. 3. Repeat lipid panel in 4 weeks. Liver panel on 11/12/2024 is within normal limits on atorvastatin 40 mg daily. 4. Meehan catheter was reinserted prior to discharge from rehab due to persistent urine retention. She will start on Flomax and suggest another voiding trial in 1 week. Medications at Discharge Home Medications aspirin 81 mg chewable tablet 81 mg PO DAILYCM Stroke 30 days #30 tabs 10/17/24 atorvastatin 40 mg tablet 40 mg PO QHS HLD, stroke 30 days #30 tabs 10/17/24 acetaminophen 325 mg tablet 650 mg (2 x 325 mg) PO Q6H PRN PRN Pain Score 1-10 #1 TAB 11/12/24 enoxaparin 40 mg/0.4 mL subcutaneous syringe 40 mg (0.4 mL) subcut DAILY@0600 #1 mL 11/12/24 food supplemt, lactose-reduced 0.08 gram-1.5 kcal/mL oral liquid (Ensure Plus High Protein) 120 ml PO TIDCM #1 mL 11/12/24 lisinopril 5 mg tablet 5 mg PO DAILY #1 TAB 11/12/24 magnesium hydroxide 400 mg/5 mL oral suspension 30 ml PO X1 PRN Constipation #1 mL 11/12/24 metoprolol tartrate 25 mg tablet 12.5 mg (1/2 x 25 mg) PO BID #1 TAB 11/12/24 mirtazapine 15 mg tablet 22.5 mg (1.5 x 15 mg) PO QHS #1 TAB 11/12/24 pantoprazole 40 mg tablet,delayed release 40 mg PO DAILY #1 TAB 11/12/24 polyethylene glycol 3350 17 gram/dose oral powder 17 g PO DAILY #1 g 11/12/24 sennosides 8.6 mg-docusate sodium 50 mg tablet (Stimulant Laxative Plus) 2 tab PO BID #1 TAB 11/12/24 tamsulosin 0.4 mg capsule (Flomax) 0.4 mg PO DAILY #1 cap 11/13/24 Hospital Course Operations None Procedures 2-D Echocardiogram (nterpretation Summary Normal LV size. Left ventricular systolic function is normal. The estimated ejection fraction is 70 %. Bubble contrast study is negative for PFO/ASD. ) Summary of Care Provided Minutes Spent on Discharge: 43 Hospital Course: DEREK ALEJANDRE, is a 79 YO F with no significant past medical history on no prescribed medications who presented to the emergency department at [facility] on 10/15/2024 complaining of left facial droop, slurred speech, left arm weakness and altered thought processes. Symptoms had started approximately 1 week prior to presenting to the emergency room and had been stuttering. Family had noticed left facial droop and abnormal speech 1 day prior to presentation to the emergency room but once again she did not come to the hospital. Her daughter saw the patient on 10/15/2024 and brought her mother to the emergency department for further evaluation. A noncontrast CT brain showed no acute disease. There was no evidence of prior stroke. CTA of the head and neck showed segmental high-grade stenosis along the left anterior pericallosal artery due to small vessel plaques. There were also small vessel plaques without significant stenosis along the right anterior pericallosal artery and both posterior cerebral arteries. There was no large vessel occlusion. There were normal bilateral cervical carotid arteries and vertebral arteries. An incidental finding was a 3.3 x 2.9 x 4.3 cm left thyroid nodule with mixed solid/cystic consistency. She was admitted to the hospitalist service. Consult was obtained with neurology on 10/16/2024. Dual antiplatelet agents with 600 mg loading dose of Plavix was recommended. 40 mg of atorvastatin was also recommended. Transthoracic echocardiogram showed a left ventricular ejection fraction of 70% with no regional wall motion abnormalities. The right ventricle was normal in size and function. There was no atrial enlargement. The bubble contrast study was negative for PFO/ASD. There was no significant valvular heart disease. She was transferred to the acute rehab unit at [facility] on 10/18/2024 for 3 hours of therapy daily to restore function/independence at or near her level prior to stroke. Shortly after arrival on rehab her eyes deviated to the right and she had a flaccid left side. She was much less responsive than she had been. A stroke alert was called and she was taken for a stat CT brain. There were no acute changes and specifically no hemorrhagic transformation on the CT scan. CTA was obtained and showed large vessel occlusion of the right middle cerebral artery and no right carotid stenosis. There was a mild amount of plaque in the left carotid bifurcation without measurable stenosis. Vertebral arteries were patent bilaterally. [facility] teleneurology was consulted and recommended transfer to [facility] for large vessel occlusion. [facility] felt that the right M1 occlusion was chronic. Because of this thrombectomy was not recommended. Dual antiplatelet agents were prescribed along with atorvastatin 40 mg daily. They recommended allowing permissive hypertension for the following week and then adjusting antihypertensives as indicated to keep the blood pressure less than 130/80. She was transferred to the acute inpatient rehab unit at [facility] on 10/21/2024 for 3 hours of therapy daily to restore function/independence at or near her level prior to the recent strokes. Derek lives alone but her son lives very close by. Her son drives her to all her appointments. She was independent with all ADLs prior to the recent events. She was retaining urine at readmission to rehab and a Meehan was inserted. UA showed greater than 100 WBCs per high-power field with +1 bacteria. Urine culture grew E. coli and she was treated with an appropriate course of antibiotics. she failed 2 voiding trials over the course of her admission to rehab, the second trial was 1 day prior to discharge. Meehan catheter was reinserted on 11/13/2024 and she has been started on Flomax 0.4 mg daily. A UA was obtained on 11/11/2024 and it showed 0-5 WBCs with no bacteria. It was nitrite negative. Urine culture grew 80,000-100,000 colonies of Enterococcus faecalis however the patient is afebrile, has a normal white blood cell count, has no nausea/vomiting/suprapubic pain/flank pain and the urine is clear. This represents asymptomatic bacteriuria and there is no indication to treat with antibiotics at this time. Derek had insomnia and poor appetite at presentation to acute rehab. She was started on Remeron at at bedtime. The dose was gradually increased as tolerated and the dose at discharge is 22.5 mg nightly. She has been sleeping well and eating 75 to 100% of most of her meals. She only ate 25 to 49% of her breakfast on the morning of discharge but she was anxious about being transferred. She also did not sleep well the night before but, had been sleeping the night through prior to that. Derek made progress while on rehab. The facial droop is much improved and the dysarthria is much better. She still has some left side neglect but, this is improving and she will now scan to her left side while I am standing at the left side of the bed so that she can look at me. She is able to read now using the techniques taught to her by . She was previously only acknowledging the words on the right side of the page and neglecting the left side. Cognition has improved. She has no dysphagia. She is ambulating using a shirley-walker for up to 21' with MAX assist X 1 person and a wheelchair follow. She is more aware of the position of the left foot and is not scissoring as much as she was initially. She still has no movement of the left upper extremity other than a weak shoulder shrug, which she was able to do admission to rehab. She is now continent of stool and can alert nursing to when she needs to have a BM. She is able to feed herself after her tray is set up. She is supervision/set up for grooming. She is requiring moderate assistance for bathing and upper body dressing but is still total assist for lower body dressing. She is total assist for toileting and tub/shower transfer and max assist for toilet transfer. Derek was transferred to [facility] on 11/13/2024 for additional therapy. I had a discussion with her prior to DC about plans for care going forward. I do not think she will be able to live independently again. I am hopeful she will continue to improve with ambulation. In my opinion there is little hope at this point that she will regain the use of the LUE but, she is R handed and this is a plus. She is sad and tearful about this. I think she would benefit from psychotherapy to help her to deal with the reality that she is going to have some persistent disability. Derek will need to have an OP thyroid US. Following the US an appt can be scheduled with Dr. Burt's office to discuss bx. she had a 30-day event monitor placed while at [facility] and has a follow-up appointment scheduled however, Derek and her family would like to follow-up with [facility] following the removal of the 30-day event monitor to discuss the results rather than having to transferred her to [facility] to see the professor of chemical engineering. She will need to follow up with neurology post DC from rehab. Physical Exam Const alert, oriented x3 and no apparent distress Constitutional Narrative: Has always been motivated to work hard with therapy to get better. General Appearance: cooperative HEENT head/scalp atraumatic HEENT Narrative: Mild hearing loss......have to repeat things when speaking to her because she does not always hear/understand what is being said to her. Eyes PERRL, EOMs intact bilaterally, conjunctivae normal and no scleral icterus Eyes Narrative: No discharge from the eyes. Quadrantanopia in the left eye only, lateral inferior quadrant. Neck supple, No nodes and no carotid bruits Chest Chest: symmetrical chest wall rise Resp normal respiratory effort and normal air movement Resp Narrative: CTA after a few deep breaths. No conversational dyspnea. Not tachypneic. No accessory muscle use. Cardio regular rate, regular rhythm, no murmurs and no gallops Cardio Narrative: No ectopy GI normal to inspection, nondistended, normoactive bowel sounds, soft to palpation and non-tender GI Narrative: Having regular bowel movements. no CVA tenderness Narrative: Urine in the Meehan bag and tubing is clear Bladder / Kidney Exam: catheter in place urethral Extremity no calf tenderness and no pedal edema Skin Rashes: no rashes Neuro Neuro Narrative: Facial droop is less noticeable and she is articulating better. Using a hemiwalker to ambulate now however she is still max assist 1 with a wheelchair follow. Veers to the left and leans heavily on the therapist. Please see NIHSS scoring. Voice is projecting better and she is articulating much more crisply since admission. She is able to scan to the left to see me when I am standing on the left side of her bed. She is also able to read now and is not just seeing the right half of the page. No trouble word finding. Psych Psych Narrative: She is calm. She is sleeping well at night and appetite has significantly improved. She is eating 75 to 100% of most meals now. She has good fluid intake. She makes good eye contact with me when we are speaking. She does become tearful when we are talking about living situations going forward. Appearance: appropriate Attitude: calm and engaged Activity / Motor Behavior: appropriate eye contact Medical Records Data Homelessness:: Sheltered Weight / BMI Weight Weight: 167 lb 8.821 oz Body Mass Index (BMI) 33.7 ABG / Lab / Microbiology Data 11/12/24 07:00 11/12/24 07:00 Laboratory: Laboratory Results - last 24 hr 11/11/24 18:00: Urine Color Yellow, Urine Clarity Clear, Urine pH 7.0, Ur Specific [place] 1.005, Urine Protein 30 H, Urine Glucose (UA) Normal, Urine Ketones Negative, Urine Occult Blood 250 H, Urine Nitrite Negative, Urine Bilirubin Negative, Urine Urobilinogen Normal, Ur Leukocyte Esterase 100 H, Urine RBC 0-5 SEEN, Urine WBC 0-5 SEEN, Ur Squamous Epith Cells 0 SEEN, Urine Bacteria 0 SEEN, Urine Mucus 0 SEEN 11/12/24 07:00: WBC 8.6, RBC 4.81, Hgb 14.3, Hct 45.2, MCV 94.0, MCH 29.7, MCHC 31.6 L, RDW Std Deviation 44.5 H, RDW Coeff of Tam 12.9, Plt Count 192, MPV 10.3, Sodium 138, Potassium 4.2, Chloride 104, Carbon Dioxide 28.0, Anion Gap 6, BUN 22 H, Creatinine 0.93, Estim Creat Clear Calc 45.41, Est GFR (MDRD) Af Amer 75, Est GFR (MDRD) Non-Af 62, BUN/Creatinine Ratio 23.7 H, Glucose 100, Calcium 9.5, Total Bilirubin 0.50, AST 27, ALT 28, Alkaline Phosphatase 89, Total Protein 6.5, Albumin 3.0 L, Globulin 3.5, Albumin/Globulin Ratio 0.9 Microbiology: Microbiology 11/11/24 18:43 Urine Catheter - Catheter Urine Culture - Preliminary GPC Poss Enterococcus sp 10/22/24 11:00 Urine Catheter - Catheter Urine Culture - Final Presumptive E. coli Indicators for Scoring Admitted with or Primary Diagnosis of CVA/Stroke: Yes Hx of CVA/Stroke: Yes Modified Gadsden Score MRS Score at time of Evaluation: 4-Moderate/severe disability NIHSS NIHSS 1a. Level of Consciousness: Alert; keenly responsive 1b. LOC Questions: Answers BOTH questions correctly. 2. Best Gaze: Normal 3. Visual: Partial hemianopia (Loss of vision in the Left eye lateral inferior quadrant only at DC. Loss of vision in the R eye medial inferior quadrant has resolved. ) 4. Facial Palsy: Minor paralysis (flattened nasolabial fold, asymmetry on smiling) 5a. Left Arm: No movement (weak shoulder shrug only ) 5b. Right Arm: No drift; arm holds 90 (or 45) degrees for full 10 seconds 6a. Left Leg: Some effort against gravity; (falls to the bed before 5 sec. Can lift the leg approximately 1 inch off the bed. ) 6b. Right Leg: No drift; leg holds 30-degree position for full 5 seconds 7. Limb Ataxia: Absent (weak in the left leg but she appropriately moves the L leg up and down the medial R calf.......too weak to get the leg up to run it up and down the anterior tibia. No movement against gravity of the LUE so can not test for ataxia.) 8. Sensory: Severe to total sensory loss; (Left arm. Has some sensation in the left face and the left leg but, she has extinction on the left side of the arm and the leg. ) 9. Best Language: No aphasia; normal 10. Dysarthria: Ttya-va-wcykltzq dysarthria; (Has improved since admission to rehab) 11. Extinction and Inattention: Profound shirley-inattention or extinction to more than one modality; (Tactile and visual extinction and still with left side neglect but, it is improving ) Total: 13 (Down from 15 at admission to rehab.) Stroke Questions Stroke Team Activated: No D/C Instructions DC O2, CPAP, BIPAP Needs Home O2 Discharge instructions: No Please Follow Up With: Horace Burt MD Meaningful Use Info Meaningful Use Meaningful Use Diagnoses (Choose all that apply): Ischemic CVA CVA Therapy Assessed for PT,OT and/or ST?: Yes Ischemic Stroke Antithrombotic order at d/c?: Yes Dx of Atrial fib/flutter?: No Anticoagulant at discharge?: No Reason anticoagulant not ordered: Treatment not Indicated Statin Dosing Therapy Reference: STATIN DOSE THERAPY REFERENCE: * Patients > 75 years receive moderate or high dose statin therapy. * Patients 75 years or YOUNGER should receive HIGH intensity statin dose unless contraindicated. You will be required to document reason for non-treatment if statin daily dose does not meet guidelines. HIGH DOSE STATIN THERAPY DAILY Atorvastatin > than or = to 40 mg Rosuvastatin > than or = to 20 mg Amlodipine + Atorvastatin > than or = to 2.5/40 mg Ezetimibe + Simvastatin 10/80 mg Simvastatin 80mg Statins at discharge?: Yes Primary Dx Acute Ischemic CVA?: Yes IV thrombolytic ordered during stay?: No Reason IV thrombolytic not ordered: Procedure not Indicated Discharge Plan Admission Admit Date/Time: 10/21/24 18:08 Primary Reason for Your Visit: Post stroke Debility Attending Provider: Elisa Duran Primary Care Provider: Care Physician,No Primary Instructions Additional Instructions / Restrictions: 1. Failed voiding trial on 11/12-11/13 and Meehan had to be reinserted. Flomax is being added to her drug regimen at OR. 2. Urine grew 80,000- 100,000 colonies of Enterococcus Faecalis but, the UA had only 05 WBC's and there was no bacteria seen.. It was nitrite negative. The white blood cell count is normal at 8.6 and she is AF. The urine is clear and not cloudy. Antibiotic not started because she has asymptomatic bacteriuria. 3. I talked with the patient prior to DC about plans going forward. I do not think the left arm is going to be functional. She is ambulating up to 21' with a shirley-walker but, she is requiring max assist and still needs a WC follow. I do not see her ever being able to live independently again. We are still hopeful that the left lower extremity will continue to improve. Left side neglect has improved, she has less facial droop and dysarthria has significantly improved. Cognition is also improved. She is now continent of stool. I think she would benefit greatly from psychotherapy to discuss how to deal with the reality of her disabilities and to focus on the things she is still able to do. 4. Appts are being made for Derek to follow up with cardiology at the hospital in [place] rather than [facility] for convenience. The 30 day event monitor is to come off later this month....I believe the . She needs to see cardiology to review the results of the monitor with the pt and her family. An appt is also being made for her to follow up with Dr. Horace Burt for the thyroid nodule/biopsy. Discharge Orders/Prescriptions Prescriptions: New acetaminophen 325 mg Tablet 650 mg PO Q6H PRN PRN (Reason: Pain Score 1-10) Qty: 1 0RF magnesium hydroxide 400 mg/5 mL Suspension 30 ml PO X1 PRN (Reason: Constipation) Qty: 1 0RF lisinopril 5 mg Tablet 5 mg PO DAILY Qty: 1 0RF enoxaparin 40 mg/0.4 mL Syringe 40 mg subcut DAILY@0600 Qty: 1 0RF Ensure Plus High Protein 0.08 gram-1.5 kcal/mL Liquid 120 ml PO TIDCM Qty: 1 0RF sennosides-docusate sodium [Stimulant Laxative Plus] 8.6-50 mg Tablet 2 tab PO BID Qty: 1 0RF pantoprazole 40 mg Tablet,Delayed Release (Dr/Ec) 40 mg PO DAILY Qty: 1 0RF mirtazapine 15 mg Tablet 22.5 mg PO QHS Qty: 1 0RF metoprolol tartrate 25 mg Tablet 12.5 mg PO BID Qty: 1 0RF polyethylene glycol 3350 17 gram/dose powder 17 g PO DAILY Qty: 1 0RF tamsulosin [Flomax] 0.4 mg capsule 0.4 mg PO DAILY Qty: 1 0RF Continued aspirin 81 mg Tablet,Chewable 81 mg PO DAILYCM 30 Days Qty: 30 0RF atorvastatin 40 mg Tablet 40 mg PO QHS 30 Days Qty: 30 0RF Discontinued clopidogrel 75 mg Tablet 75 mg PO DAILY 30 Days Qty: 30 0RF lisinopril 20 mg tablet 10 mg PO DAILY Referrals / Follow Up: Champ Cruz [Other] - 12/17/24 2:30 pm ([facility] [phone]) Horace Burt MD [Med Staff - Active Staff] - (thyroid nodule -Call and schedule appointment after pt has thyroid US) Care Physician,No Primary [Primary Care Provider] - Disposition Disposition (needs filled in before D/C Order can be placed): Half-Way Facility Charges/Coding Visit Charges Inpatient E&M: 11041 Disch Hosp >30min
[2024-11-12 18:00] VITALS: BP 121/58; PULSE 72; RESP 16; TEMP 36.6; O2SAT 97
[2024-11-12 21:23] VITALS: PULSE 88
[2024-11-12] MEDS: Mirtazapine 15 MG Tablet 22.5 MG PO (21:24)
[2024-11-12] MEDS: Atorvastatin Calcium 40 MG Tablet PO (21:25)
[2024-11-12] MEDS: Nystatin Powder 15gm Bottle 1 APPLIC TOPICAL (21:25)
[2024-11-13 00:18] VITALS: BMI 33.7
[2024-11-13 06:00] VITALS: BP 126/70; PULSE 75; RESP 16; TEMP 36.8; O2SAT 95
[2024-11-13] MEDS: Nystatin Powder 15gm Bottle 1 APPLIC TOPICAL (07:03)
[2024-11-13] MEDS: Menthol/Lanolin/Calamine/Znox 113 GM Tube 1 APPLIC TOPICAL (07:03)
[2024-11-13] MEDS: Enoxaparin 40 MG/0.4 ML Syringe SC (07:03)
--- NOTE | 2024-11-13 08:29 | NURSING ---
pt did not void on bed miranda upon start of shift, bladder scanned pt for 875ml, straight cath for 950mL
[2024-11-13] MEDS: Lisinopril 5 MG Tablet PO (08:33)
[2024-11-13 08:34] VITALS: PULSE 75
[2024-11-13] MEDS: Aspirin 81 MG TAB.CHEW PO (08:34)
[2024-11-13] MEDS: Metoprolol Tartrate 25 MG Tablet 12.5 MG PO (08:34)
[2024-11-13] MEDS: Ensure Plus High Protein 120 ML LIQUID PO ×2 (08:34→11:26)
[2024-11-13] MEDS: Pantoprazole Sodium 40 MG Tablet PO (08:34)
[2024-11-13] MEDS: Polyethylene Glycol 3350 17 GM PACKET PO (08:35)
[2024-11-13 14:13] VITALS: BMI 33.7
[2024-11-13 14:42] VITALS: BP 138/70; PULSE 87; RESP 16; TEMP 36.6; O2SAT 97
--- NOTE | 2024-11-13 14:44 | NURSING ---
discharged to [facility] report called to Anjali
== END 2024-11-13 14:31 | disposition skilled nursing facility (03) | DRG 57 ==
PROVIDERS: Admitting Provider Internal Medicine; Visit Provider Internal Medicine
DX: I69.354 Hemiplegia and hemiparesis following cerebral infarction affecting left non-dominant side (principal); N30.00 Acute cystitis without hematuria; H53.47 Heteronymous bilateral field defects; I69.328 Other speech and language deficits following cerebral infarction; F32.9 Major depressive disorder, single episode, unspecified; E04.1 Nontoxic single thyroid nodule; I10 Essential (primary) hypertension; I69.322 Dysarthria following cerebral infarction; I69.392 Facial weakness following cerebral infarction; M48.02 Spinal stenosis, cervical region; K59.00 Constipation, unspecified; E78.5 Hyperlipidemia, unspecified; I69.398 Other sequelae of cerebral infarction; I69.393 Ataxia following cerebral infarction; R15.9 Full incontinence of feces; R33.9 Retention of urine, unspecified; Z79.02 Long term (current) use of antithrombotics/antiplatelets; B96.20 Unspecified Escherichia coli [E. coli] as the cause of diseases classified elsewhere; Z79.82 Long term (current) use of aspirin; G47.00 Insomnia, unspecified; Z79.899 Other long term (current) drug therapy
CPT/HCPCS: 36415; 74018; 80048; 80053; 81001; 83735; 84100; 85025; 85027; 87077; 87086; 87088; 87186; 92507; 92523; 97110; 97112; 97116; 97129; 97130; 97162; 97166; 97530; 97535; 97802; 97803; A4216

== ENCOUNTER → 2024-12-03 | Outpatient (CLI) | payer MEDICARE, OTHER, SELFPAY ==
--- NOTE | 2024-12-03 15:37 | US_ITS ---
PROCEDURE: THYROID REASON FOR EXAM: Thyroid nodule. TECHNIQUE: Thyroid ultrasound COMPARISON: None. FINDINGS: Right thyroid lobe measures 4.9 cm x 2.1 cm x 2.3 cm. Left thyroid lobe is enlarged and measures 6.4 cm x 2.4 cm x 3.5 cm. Isthmus thickness is5 mm. Thyroid Size: Left lobe of the thyroid is enlarged. Background Echotexture: Heterogeneous multinodular Thyroid Nodules: Several subcentimeter nodules are seen in the right lobe of the thyroid suggestive of goiter is change. There is a dominant 4 cm x 2.7 cm x 3 cm heterogeneous complex nodule in the inferior pole of the left lobe with increased vascularity. Biopsy recommended. US/Thyroid IMPRESSION: Dominant irregular nodule in the inferior pole of the left lobe of the thyroid as described. Biopsy recommended. Enlarged left lobe of the thyroid. Multiple subcentimeter nodules seen in the right lobe of the thyroid. Reading Location: [place] [id number]
== END | disposition home or self-care (01) ==
LOC: US 15:34
PROVIDERS: Referring Provider Surgery; Visit Provider Surgery
DX: E04.1 Nontoxic single thyroid nodule (principal)
CPT/HCPCS: 76536

== ENCOUNTER → 2025-01-31 | Outpatient (CLI) | payer MEDICARE, OTHER, SELFPAY ==
--- NOTE | 2025-01-31 09:00 | FLU_PTH ---
PATIENT: DEREK ALEJANDRE LOC: [facility] U#:[id number] AGE/SX: 79/F ROOM: RE01/31/[address]: Dr. Horace Burt MD : 1945 BED: DIS: 01/31/2025 SPEC #: [id number] RECD: 01/31/25 10:44 STATUS: VIKKI VIKTOR #: [id number] PORSHA: 01/31/25 09:[address]: Horace Burt DEPT: CYTOLOGY RECD BY: Rosas Perez ENTERED: 01/31/25 10:44 SP TYPE: Fluid OTHR DR: No Primary Care Phys Tissues: A - Thyroid gland, NOS Procedures: Special Stain Group II Surgery Specimen Level IV Cytospin Fluid HEADER OPERATION: Fine needle aspiration of left thyroid nodule PRE-OP DIAGNOSIS: Left thyroid nodule TISSUE SUBMITTED: A- Left inferior thyroid nodule for cytology DIAGNOSIS CYTOLOGY A. Thyroid fna, left inferior thyroid nodule: * No malignant cells are identified * Benign follicular cells, hypocellular specimen COMMENT The specimen is evaluated at the time of biopsy by Dr. Bhakta. Immediate Evaluation = Mostly blood. CYTOLOGY STUDY Slides are reviewed. CYTOLOGY GROSS A. Received is 30 ml of red fluid with rare particles and 4 slides (3 PAPS and 2 DQ) labeled with the patient's name and and designated per the requisition as Left inferior thyroid nodule. Submitted for cytology. Mr 01/31/2025 CPT: 56006
== END | disposition home or self-care (01) ==
PROVIDERS: Referring Provider Surgery; Visit Provider Surgery
DX: E04.1 Nontoxic single thyroid nodule (principal)
CPT/HCPCS: 88108; 88305; 88313